=== PATIENT | male | born 1940 | race Caucasian/White ===

== ENCOUNTER 2020-04-16 06:07 | Outpatient (REF) | payer BC, SELFPAY ==
[2020-04-16 06:55] LABS: MANUAL DIFF FLAG NO
[2020-04-16 07:01] LABS: Basophils Absolute Auto 0.1 X10*3/uL (0.0-0.2); Basophils Percent Auto 0.8 % (0-2); Eosinophils Absolute Auto 0.7 X10*3/uL (0.0-0.4); Eosinophils Percent Auto 7.6 % (0-4); Hematocrit 35.9 % (42-52); Hemoglobin 11.3 g/dl (14.0-18.0); Imm Gran Abs Auto 0.02 X10*3/uL (0.00-0.03); Imm Gran Pct Auto 0.2 % (0.0-0.4); Lymphocytes Absolute Auto 3.3 X10*3/uL (1.2-4.9); Lymphocytes Percent Auto 38.4 % (20-40); Mean Corpuscular HGB Conc 31.5 g/dl (31.0-36.0); Mean Corpuscular Hemoglobin 30.3 pg (27.0-33.0); Mean Corpuscular Volume 96.2 fL (80-98); Mean Platelet Volume 10.8 fL (9.4-12.4); Monocytes Absolute Auto 0.7 X10*3/uL (0.1-1.2); Monocytes Percent Auto 8.6 % (2-11); Neutrophils Absolute Auto 3.8 X10*3/uL (2.0-8.3); Neutrophils Percent Auto 44.4 % (45-73); Platelet Count 243 X10*3/uL (160-400); Red Blood Count 3.73 X10*6/uL (4.60-5.80); Red Cell Distribution Width 13.4 % (11.0-16.0); White Blood Count 8.6 X10*3/uL (4.8-10.8)
[2020-04-16 07:22] LABS: Estimated Average Glucose 140 mg/dL; Hemoglobin A1C 141.2704 umol/L; Hemoglobin A1c % 6.5 %
[2020-04-16 07:31] LABS: Alanine Aminotransferase 18 U/L (0-40); Albumin Level 4.1 g/dL (3.5-5.0); Alkaline Phosphatase 79 U/L (39-117); Anion Gap 16 (12-20); Aspartate Amino Transferase 22 U/L (5-37); Bilirubin Direct 0.3 mg/dL (0.0-0.5); Bilirubin Total 0.6 mg/dL (0.0-1.0); Blood Urea Nitrogen 39 mg/dL (9-16); Calcium 8.7 mg/dL (8.4-10.2); Carbon Dioxide 23 mmol/L (22-29); Chloride 106 mmol/L (96-108); Cholesterol 162 mg/dL; Estimated Glomerular Filt Rate 39; Glucose Random 178 mg/dL (60-115); HDL Cholesterol 44 mg/dL; LDL Cholesterol Calculated 78 mg/dl; Potassium 4.5 mmol/l (3.3-5.1); Sodium 140 mmol/L (135-145); Total Protein 6.9 g/dL (6.5-8.0); Triglycerides 202 mg/dL
== END 2020-04-16 06:08 | disposition home or self-care (01) ==
LOC: HO.LAB 06:07
DX: I10 Essential (primary) hypertension (principal); E78.5 Hyperlipidemia, unspecified; E11.9 Type 2 diabetes mellitus without complications
CPT/HCPCS: 36415; 80053; 80061; 80076; 82248; 83036; 85025

== ENCOUNTER → 2020-08-09 07:29 | Outpatient (BNV) | payer BC, SELFPAY | PROVIDERS: PCP Internal Medicine; Visit Provider Internal Medicine Medical Oncology | DX: E11.22 Type 2 diabetes mellitus with diabetic chronic kidney disease (principal); N18.30 Chronic kidney disease, stage 3 unspecified; D63.8 Anemia in other chronic diseases classified elsewhere | CPT/HCPCS: 99213; 99214 ==

== ENCOUNTER 2020-10-25 07:33 | Outpatient (REF) | payer BC, SELFPAY ==
[2020-10-25 08:39] LABS: MANUAL DIFF FLAG NO
[2020-10-25 08:55] LABS: Basophils Percent Auto 0.6 % (0-2); Eosinophils Absolute Auto 0.4 X10*3/uL (0.0-0.4); Eosinophils Percent Auto 6.3 % (0-4); Hematocrit 34.5 % (42-52); Hemoglobin 10.9 g/dl (14.0-18.0); Imm Gran Abs Auto 0.01 X10*3/uL (0.00-0.03); Imm Gran Pct Auto 0.1 % (0.0-0.4); Lymphocytes Absolute Auto 2.6 X10*3/uL (1.2-4.9); Lymphocytes Percent Auto 37.5 % (20-40); Mean Corpuscular HGB Conc 31.6 g/dl (31.0-36.0); Mean Corpuscular Hemoglobin 30.4 pg (27.0-33.0); Mean Corpuscular Volume 96.4 fL (80-98); Mean Platelet Volume 10.8 fL (9.4-12.4); Monocytes Absolute Auto 0.7 X10*3/uL (0.1-1.2); Monocytes Percent Auto 9.6 % (2-11); Neutrophils Absolute Auto 3.1 X10*3/uL (2.0-8.3); Neutrophils Percent Auto 45.9 % (45-73); Platelet Count 239 X10*3/uL (160-400); Red Blood Count 3.58 X10*6/uL (4.60-5.80); Red Cell Distribution Width 13.5 % (11.0-16.0); White Blood Count 6.8 X10*3/uL (4.8-10.8)
[2020-10-25 09:07] LABS: Alanine Aminotransferase 30 U/L (0-40); Albumin Level 4.1 g/dL (3.5-5.0); Alkaline Phosphatase 80 U/L (39-117); Anion Gap 14 (12-20); Aspartate Amino Transferase 29 U/L (5-37); Bilirubin Total 0.6 mg/dL (0.0-1.0); Blood Urea Nitrogen 35 mg/dL (9-16); Calcium 8.9 mg/dL (8.4-10.2); Carbon Dioxide 24 mmol/L (22-29); Chloride 110 mmol/L (96-108); Cholesterol 164 mg/dL; Estimated Glomerular Filt Rate 39; Glucose Fasting 196 mg/dL (60-99); HDL Cholesterol 49 mg/dL; LDL Cholesterol Calculated 78 mg/dl; Potassium 4.5 mmol/L (3.3-5.1); Sodium 143 mmol/L (135-145); Total Protein 6.9 g/dL (6.5-8.0); Triglycerides 186 mg/dL
[2020-10-25 09:27] LABS: Estimated Average Glucose 143 mg/dL; Hemoglobin A1c % 6.6 %
[2020-10-25 10:08] LABS: Creatinine Urine 102.83 mg/dL; Microalbum/Creatinine Ratio Ur 340.3 ug/mg cr
== END 2020-10-25 07:34 | disposition home or self-care (01) ==
LOC: HO.LAB 07:33
PROVIDERS: PCP Internal Medicine; Visit Provider Internal Medicine
DX: Z00.00 Encounter for general adult medical examination without abnormal findings (principal); E11.9 Type 2 diabetes mellitus without complications
CPT/HCPCS: 36415; 80053; 80061; 82043; 83036; 85025

== ENCOUNTER 2021-01-29 07:17 | Outpatient (REF) | payer MEDICARE, SELFPAY ==
[2021-01-29 08:48] LABS: Estimated Average Glucose 126 mg/dL
[2021-01-29 08:57] LABS: Cholesterol 169 mg/dL; Glucose Fasting 204 mg/dL (60-99); HDL Cholesterol 56 mg/dL; LDL Cholesterol Calculated 84 mg/dl; Triglycerides 145 mg/dL
== END 2021-01-29 07:18 | disposition home or self-care (01) ==
LOC: HO.LAB 07:17
PROVIDERS: PCP Internal Medicine; Visit Provider Internal Medicine
DX: E11.65 Type 2 diabetes mellitus with hyperglycemia (principal)
CPT/HCPCS: 36415; 80061; 82947; 83036

== ENCOUNTER 2021-05-04 06:59 | Outpatient (REF) | payer MEDICARE, SELFPAY ==
[2021-05-04 07:46] LABS: Cholesterol 167 mg/dL; Glucose Fasting 155 mg/dL (60-99); HDL Cholesterol 55 mg/dL; LDL Cholesterol Calculated 84 mg/dl; Triglycerides 143 mg/dL
[2021-05-04 08:02] LABS: Estimated Average Glucose 123 mg/dL; Hemoglobin A1c % 5.9 %
== END 2021-05-04 07:00 | disposition home or self-care (01) ==
LOC: HO.LAB 06:59
PROVIDERS: PCP Internal Medicine; Visit Provider Internal Medicine
DX: E11.65 Type 2 diabetes mellitus with hyperglycemia (principal)
CPT/HCPCS: 36415; 80061; 82947; 83036

== ENCOUNTER 2021-07-30 07:33 | Outpatient (REF) | payer MEDICARE, SELFPAY ==
[2021-07-30 08:49] LABS: Estimated Average Glucose 128 mg/dL; Hemoglobin A1c % 6.1 %
[2021-07-30 08:58] LABS: Cholesterol 183 mg/dL; Glucose Fasting 163 mg/dL (60-99); HDL Cholesterol 51 mg/dL; LDL Cholesterol Calculated 105 mg/dl; Triglycerides 137 mg/dL
== END 2021-07-30 07:34 | disposition home or self-care (01) ==
LOC: HO.LAB 07:33
PROVIDERS: PCP Internal Medicine; Visit Provider Internal Medicine
DX: Z00.00 Encounter for general adult medical examination without abnormal findings (principal); E11.65 Type 2 diabetes mellitus with hyperglycemia
CPT/HCPCS: 36415; 80061; 82947; 83036

== ENCOUNTER 2021-08-29 09:54 | Outpatient (REF) | payer MEDICARE, SELFPAY ==
[2021-08-29 10:23] LABS: Estimated Average Glucose 134 mg/dL; Hemoglobin A1c % 6.3 %
[2021-08-29 10:27] LABS: Cholesterol 192 mg/dL; Glucose Fasting 206 mg/dL (60-99); HDL Cholesterol 60 mg/dL; LDL Cholesterol Calculated 102 mg/dl; Triglycerides 151 mg/dL
== END 2021-08-29 09:55 | disposition home or self-care (01) ==
LOC: HO.LAB 09:54
PROVIDERS: PCP Internal Medicine; Visit Provider Internal Medicine
DX: Z00.00 Encounter for general adult medical examination without abnormal findings (principal); E11.65 Type 2 diabetes mellitus with hyperglycemia
CPT/HCPCS: 36415; 80061; 82947; 83036

== ENCOUNTER 2021-11-17 06:06 | Outpatient (REF) | payer MEDICARE, SELFPAY ==
[2021-11-17 06:16] LABS: MANUAL DIFF FLAG NO
[2021-11-17 07:25] LABS: Basophils Absolute Auto 0.1 X10*3/uL (0.0-0.2); Basophils Percent Auto 0.9 % (0-2); Eosinophils Absolute Auto 0.5 X10*3/uL (0.0-0.4); Hematocrit 32.4 % (42.0-52.0); Hemoglobin 10.2 g/dl (14.0-18.0); Imm Gran Abs Auto 0.04 X10*3/uL (0.00-0.03); Imm Gran Pct Auto 0.5 % (0.0-0.4); Lymphocytes Absolute Auto 3.6 X10*3/uL (1.2-4.9); Lymphocytes Percent Auto 44.5 % (20-40); Mean Corpuscular HGB Conc 31.5 g/dl (31.0-36.0); Mean Corpuscular Hemoglobin 29.9 pg (27.0-33.0); Mean Platelet Volume 10.6 fL (9.4-12.4); Monocytes Absolute Auto 0.8 X10*3/uL (0.1-1.2); Monocytes Percent Auto 10.4 % (2-11); Neutrophils Percent Auto 37.7 % (45-73); Platelet Count 266 X10*3/uL (160-400); Red Blood Count 3.41 X10*6/uL (4.60-5.80); Red Cell Distribution Width 13.6 % (11.0-16.0); White Blood Count 8.1 X10*3/uL (4.8-10.8)
[2021-11-17 07:32] LABS: Estimated Average Glucose 131 mg/dL; Hemoglobin A1c % 6.2 %
[2021-11-17 07:49] LABS: Alanine Aminotransferase 15 U/L (0-40); Alkaline Phosphatase 88 U/L (39-117); Anion Gap 15 (12-20); Aspartate Amino Transferase 21 U/L (5-37); Bilirubin Total 0.8 mg/dL (0.0-1.0); Blood Urea Nitrogen 30 mg/dL (9-16); Carbon Dioxide 25 mmol/L (22-29); Chloride 106 mmol/L (96-108); Cholesterol 187 mg/dL; Estimated Glomerular Filt Rate 40; Glucose Fasting 166 mg/dL (60-99); HDL Cholesterol 54 mg/dL; LDL Cholesterol Calculated 99 mg/dl; Potassium 3.9 mmol/L (3.3-5.1); Sodium 142 mmol/L (135-145); Total Protein 7.1 g/dL (6.5-8.0); Triglycerides 173 mg/dL
== END 2021-11-17 06:07 | disposition home or self-care (01) ==
LOC: HO.LAB 06:06
PROVIDERS: PCP Internal Medicine; Visit Provider Internal Medicine
DX: Z00.00 Encounter for general adult medical examination without abnormal findings (principal); Z13.0 Encounter for screening for diseases of the blood and blood-forming organs and certain disorders involving the immune mechanism; E11.9 Type 2 diabetes mellitus without complications
CPT/HCPCS: 36415; 80053; 80061; 83036; 85025

== ENCOUNTER 2022-05-15 06:16 | Outpatient (REF) | payer MEDICARE, SELFPAY ==
[2022-05-15 07:18] LABS: Basophils Percent Auto 0.4 % (0-2); Eosinophils Absolute Auto 0.5 X10*3/uL (0.0-0.4); Eosinophils Percent Auto 4.9 % (0-4); Hematocrit 35.8 % (42.0-52.0); Hemoglobin 11.2 g/dl (14.0-18.0); Imm Gran Abs Auto 0.02 X10*3/uL (0.00-0.03); Imm Gran Pct Auto 0.2 % (0.0-0.4); Lymphocytes Absolute Auto 5.3 X10*3/uL (1.2-4.9); MANUAL DIFF FLAG SCAN; Mean Corpuscular HGB Conc 31.3 g/dl (31.0-36.0); Mean Corpuscular Hemoglobin 29.2 pg (27.0-33.0); Mean Corpuscular Volume 93.5 fL (80.0-98.0); Mean Platelet Volume 10.4 fL (9.4-12.4); Monocytes Absolute Auto 0.9 X10*3/uL (0.1-1.2); Monocytes Percent Auto 8.2 % (2-11); Neutrophils Absolute Auto 3.7 x10*3/uL (2.0-8.3); Neutrophils Percent Auto 35.3 % (45-73); Platelet Count 294 X10*3/uL (160-400); Red Blood Count 3.83 X10*6/uL (4.60-5.80); Red Cell Distribution Width 15.2 % (11.0-16.0); SCAN SMEAR FLAG 1; White Blood Count 10.5 X10*3/uL (4.8-10.8)
[2022-05-15 07:30] LABS: Estimated Average Glucose 151 mg/dL; Hemoglobin A1c % 6.9 %
[2022-05-15 07:52] LABS: Anion Gap 17 (12-20); Blood Urea Nitrogen 66 mg/dL (9-16); Calcium 9.1 mg/dL (8.4-10.2); Carbon Dioxide 18 mmol/L (22-29); Chloride 111 mmol/L (96-108); Estimated Glomerular Filt Rate 32; Glucose Fasting 207 mg/dL (60-99); Potassium 4.4 mmol/L (3.3-5.1); Sodium 142 mmol/L (135-145)
[2022-05-15 08:42] LABS: SLIDE REVIEW VERIFIED
== END 2022-05-15 06:17 | disposition home or self-care (01) ==
LOC: HO.LAB 06:16
PROVIDERS: PCP Internal Medicine; Visit Provider Internal Medicine
DX: Z13.0 Encounter for screening for diseases of the blood and blood-forming organs and certain disorders involving the immune mechanism (principal); R51.9 Headache, unspecified; E11.65 Type 2 diabetes mellitus with hyperglycemia
CPT/HCPCS: 36415; 80048; 82947; 83036; 85025

== ENCOUNTER 2022-08-15 06:18 | Outpatient (REF) | payer MEDICARE, SELFPAY ==
[2022-08-15 07:55] LABS: Estimated Average Glucose 166 mg/dL; Hemoglobin A1c % 7.4 %
[2022-08-15 08:08] LABS: Cholesterol 171 mg/dL; Glucose Fasting 264 mg/dL (60-99); HDL Cholesterol 45 mg/dL; LDL Cholesterol Calculated 88 mg/dl; Triglycerides 194 mg/dL
== END 2022-08-15 06:19 | disposition home or self-care (01) ==
LOC: HO.LAB 06:18
PROVIDERS: PCP Internal Medicine; Visit Provider Internal Medicine
DX: E78.5 Hyperlipidemia, unspecified (principal); E11.65 Type 2 diabetes mellitus with hyperglycemia
CPT/HCPCS: 36415; 80061; 82947; 83036

== ENCOUNTER 2022-11-21 08:19 | Outpatient (REF) | payer MEDICARE, SELFPAY ==
[2022-11-21 09:16] LABS: Estimated Average Glucose 137 mg/dL; Hemoglobin A1c % 6.4 %
[2022-11-21 09:17] LABS: Glucose Fasting 182 mg/dL (60-99)
== END 2022-11-21 08:20 | disposition home or self-care (01) ==
LOC: HO.LAB 08:19
PROVIDERS: PCP Internal Medicine; Visit Provider Internal Medicine
DX: R73.9 Hyperglycemia, unspecified (principal)
CPT/HCPCS: 36415; 82947; 83036

== ENCOUNTER 2023-02-22 09:00 | Outpatient (REF) | payer MEDICARE, SELFPAY ==
[2023-02-22 10:33] LABS: Cholesterol 161 mg/dL (<200); Glucose Fasting 150 mg/dL (60-99); HDL Cholesterol 58 mg/dL (>40); LDL Cholesterol Calculated 78 mg/dL (<100); Triglycerides 128 mg/dL (<150)
[2023-02-22 10:37] LABS: Estimated Average Glucose 120 mg/dL; Hemoglobin A1c % 5.8 % (<6.0)
== END 2023-02-22 09:01 | disposition home or self-care (01) ==
LOC: HO.LAB 09:00
PROVIDERS: PCP Internal Medicine; Visit Provider Internal Medicine
DX: R73.9 Hyperglycemia, unspecified (principal); E78.5 Hyperlipidemia, unspecified
CPT/HCPCS: 36415; 80061; 82947; 83036

== ENCOUNTER 2023-03-01 08:46 | Outpatient (AMB) | payer MEDICARE, SELFPAY ==
[2023-03-01 08:47] VITALS: BP 144/62; PULSE 64; O2SAT 98; BMI 29.2
--- NOTE | 2023-03-01 08:47 | MHC.PC.OV ---
Vital Signs 03/01/23 08:47 Height 5 ft 8 in Weight 192 lb BMI 29.2 BP 144/62 H Blood Pressure Location Lt brachial Position Sitting Pulse 64 Pulse Source Pulse Oximeter Pulse Oximetry (%) 98 Oxygen Delivery Method Room Air Intake Visit Reasons: 3mth f/u Director Digital Sales: Present Accompanied by: Spouse Allergies naproxen [NAPROXEN] Adverse Reaction (Mild, Verified 03/01/23 08:47) HALLUCINATIONS Medication List - Last Reconciled 03/01/23 by Pee Escobedo MD aspirin (Adult Low Dose Aspirin) 81 mg PO DAILY blood sugar diagnostic ([employer] Verio test strips) TEST ONCE DAILY cholecalciferol (vitamin D3) 25 mcg PO DAILY ferrous sulfate 325 mg PO DAILY glipizide 5 mg PO BID hydrochlorothiazide 12.5 mg PO DAILY lancets ([employer]ToAmp[employer] Delica Lancets) TEST ONCE DAILY metoprolol succinate ER 50 mg PO DAILY [id number] mcg (Centrum Silver Ultra Men's) 1 tab PO DAILY pioglitazone (Actos) 15 mg PO DAILY simvastatin 40 mg PO DAILY Tobacco use date assessed: 08/21/22 Fall risk assessment: No Falls in past year Last assessed Fall Risk: 03/01/23 Dental Screening Dental Screen Date: 03/01/23 Did you have a dental visit in the last 12 months?: No Did you have a dental problem in the last 6 months where you did not have access to dental care?: No Was dental information given to patient?: Patient has dentist HPI 3mth f/u HPI Details DM HTN and hyperlipidemia; stable labs good [facility] Medical History Obesity Hypertension 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, controlled Diabetes mellitus Family History Father Hx of diabetes mellitus Leukemia Brother Hx of diabetes mellitus Brother Hx of diabetes mellitus Social History Household Members: Spouse Housing: House Are you a primary critical care technician to a significant other at home: No Do you presently have visiting nurse or other home services: Yes Alcohol intake: never Patient Tobacco Use Status: Former Tobacco user Tobacco use type: Cigarette e-Cigarette/Vaping Use: Never Used Second Hand Smoke Exposure: No service: No Current occupational status: retired Cognitive needs: No Hearing needs: No Vision needs: Yes Questionnaire PHQ-9 Over the last 2 weeks, how often have you been bothered by any of the following problems? 1. Little interest or pleasure in doing things: not at all 2. Feeling down, depressed, or hopeless: not at all 3. Trouble falling or staying asleep, or sleeping too much: not at all 4. Feeling tired or having little energy: not at all 5. Poor appetite or overeating: not at all 6. Feeling bad about yourself - or that you are a failure or have let yourself or your family down: not at all 7. Trouble concentrating on things, such as reading the newspaper or watching television: not at all 8. Moving or speaking so slowly that other people could have noticed. Or the opposite - being so fidgety or restless that you have been moving around a lot more than usual: not at all 9. Thoughts that you would be better off or of hurting yourself in some way: not at all Total score: 0 Depression Screening Interpretation: Negative 58791 - PHQ-9 Billing: Yes Source: Developed by Drs. Wing Ma, Scott Urrutia and colleagues, with an educational criss from [employer]. Thrive Questionnaire Date Thrive assessed: 08/21/22 AUDIT C Alcohol Use Questionnaire (AUDIT-C) 1. How often do you have a drink containing alcohol?: Never Total Score: 0 Score Reviewed/Action Taken: Yes CARTER-7 AMB Questionnaire CARTER-7 Date CARTER - 7 assessed: 08/21/22 Source: Developed by Drs. Wing Ma, Scott Urrutia and colleagues, with an educational criss from [employer]. Review of Systems Const Denies chills, Denies headache(s) and Denies weight loss ENT Denies headache(s) Card Denies chest pain, Denies syncope, Denies irregular heart rhythm and Denies dyspnea Resp Denies chest congestion, Denies cough and Denies dyspnea GI Denies abdominal pain, Denies change in stool character, Denies nausea and Denies vomiting Musc Denies deformity and Denies joint swelling Neuro Denies syncope and Denies headache(s) Physical exam (Primary Care) Vital Signs: Last Vital Signs Pulse 64 03/01/23 08:47 BP 144/62 H 03/01/23 08:47 Pulse Ox 98 03/01/23 08:47 Oxygen Delivery Method Room Air 03/01/23 08:47 BMI result Body Mass Index 29.2 Tobacco/Smoking Status: Tobacco use Status Tobacco use date assessed 08/21/22 03/01/23 08:53 Patient Tobacco Use Status Former Tobacco user 03/01/23 08:53 Tobacco use type Cigarette 03/01/23 08:53 e-Cigarette/Vaping Use Never Used 03/01/23 08:53 PHQ-9: PHQ-9 Score PHQ-9: Total score 0 03/01/23 08:53 Depression Screening Interpretation: Negative Thrive Assessment: Date of Thrive Assessment Date Thrive assessed 08/21/22 03/01/23 08:53 Const General: cooperative, comfortable, no acute distress and alert Neck Neck: Yes no lymphadenopathy Thyroid: Thyroid normal Resp Effort & Inspection: normal respiratory effort Auscultation: clear to auscultation bilaterally Percussion: percussion normal Cardio Jugular venous distension: no JVD Palpation: normal PMI Rate: regular rate Rhythm: regular rhythm Heart sounds: S1 normal heart sound present and S2 normal heart sound present GI Inspection: Yes normal to inspection Palpation (GI): No hepatosplenomegaly present Skin General skin exam: no rashes or lesions noted Extrem General: Yes no clubbing, cyanosis or edema Assessment and Plan Assessment & Plan (1) Hyperlipidemia: Code(s): E78.5 - Hyperlipidemia, unspecified Plan: stable; same rx (2) Hypertension: Code(s): I10 - Essential (primary) hypertension Plan: stable same rx (3) Diabetes mellitus with coincident hypertension: Code(s): E11.9 - Type 2 diabetes mellitus without complications; I10 - Essential (primary) hypertension Plan: due for labs Orders: Orders Lipid Panel Today E78.5 - Hyperlipidemia, unspecified Complete Blood Count Auto Diff Today D64.9 - Anemia, unspecified Hemoglobin A1c Today R73.9 - Hyperglycemia, unspecified Comprehensive [place]. Panel Fast Today N28.9 - Disorder of kidney and ureter, unspecified Coding Level of Care Code Est Pt Level 4 (92907) Diagnoses Hyperlipidemia E78.5 Hypertension I10 Diabetes mellitus with coincident hypertension E11.9; I10
== END 2023-03-01 09:13 | disposition home or self-care (01) ==
PROVIDERS: PCP Internal Medicine; Visit Provider Internal Medicine
DX: E78.5 Hyperlipidemia, unspecified (principal); I10 Essential (primary) hypertension; E11.9 Type 2 diabetes mellitus without complications
CPT/HCPCS: 99214

== ENCOUNTER 2023-06-07 15:35 | Emergency (ER) | payer MEDICARE, SELFPAY ==
--- NOTE | ~2023-06-07 | XR_ITS ---
EXAMINATION: XR CHEST CLINICAL INFORMATION: Covid positive. Evaluate for pneumonia COMPARISON: None available. TECHNIQUE: 2 views of the chest were obtained. FINDINGS: Lungs clear. No pleural effusions. Heart and pulmonary vessels normal. There is mild spondylitic change in the thoracic spine. XR/XR chest 2V IMPRESSION: No active disease.
--- NOTE | 2023-06-07 15:39 | ED.WEAKNESS ---
HPI - Weakness General Chief complaint: Upper Respiratory Symptoms Stated complaint: covid+,nausea,sore throat Time Seen by Provider: 06/07/23 15:37 Source: patient and EMS Mode of arrival: EMS Limitations: no limitations History of Present Illness HPI Narrative: Tested positive for COVID Related Data Home Medications Medication Instructions Recorded Confirmed aspirin 81 mg tablet,delayed 81 mg PO DAILY 08/05/20 03/08/23 release (Adult Low Dose Aspirin) cholecalciferol (vitamin D3) 25 25 mcg PO DAILY 08/05/20 03/08/23 mcg (1,000 unit) capsule dffzzmfl-ux-dowef 300 mcg-K 60 1 tab PO DAILY 08/05/20 03/08/23 mcg-lycop 600 mcg-lutein 300 mcg tablet (Centrum Silver Ultra Men's) Previous Rx's Medication Instructions Recorded lancets 33 gauge ([employer] Delica ##100 10/11/21 Lancets) pioglitazone 15 mg tablet (Actos) 15 mg PO DAILY #90 tabs 05/18/22 ferrous sulfate 325 mg (65 mg 325 mg PO DAILY #90 tabs 11/02/22 iron) tablet glipizide 5 mg tablet 5 mg PO BID #90 tabs 11/02/22 blood sugar diagnostic ([employer] #100 strips 11/14/22 Verio test strips) metoprolol succinate 50 mg 50 mg PO DAILY #90 tabs 01/30/23 tablet,extended release 24 hr simvastatin 40 mg tablet 40 mg PO DAILY #90 tabs 01/30/23 Allergies Allergy/AdvReac Type Severity Reaction Status Date / Time naproxen [NAPROXEN] AdvReac Mild HALLUCINATI Verified 03/08/23 08:01 ONS Review of Systems Neurologic: Denies Sensory deficit (Neuro) [facility] Past Medical History Medical History Obesity Hypertension 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, controlled Diabetes mellitus Family History Family History Father Hx of diabetes mellitus Leukemia Brother Hx of diabetes mellitus Brother Hx of diabetes mellitus Social History Social History Household Members: Spouse Housing: House Are you a primary career and guidance counselor to a significant other at home: No Do you presently have visiting nurse or other home services: Yes Alcohol intake: never Patient Tobacco Use Status: Former Tobacco user Tobacco use type: Cigarette Smoked in Last 30 Days: No e-Cigarette/Vaping Use: Never Used Second Hand Smoke Exposure: No Advance Directives: Yes Advance Directives Information Provided: No Advance Directives on File: No service: No Current occupational status: retired Cognitive needs: No Hearing needs: No Vision needs: Yes Physical Exam Vital Signs: Vital Signs: Last Vital Signs Temp 100.5 F H 06/07/23 19:32 Pulse 89 06/07/23 19:32 Resp 14 06/07/23 19:32 BP 132/59 L 06/07/23 19:32 Pulse Ox 97 06/07/23 19:32 O2 Del Method Room Air 06/07/23 19:32 BMI result Body Mass Index 26.5 Const: Other: elderly male General: healthy appearing Nutritional Appearance: average body habitus Orientation/consciousness: oriented to person and patient oriented x3 Limitations: no limitations HEENT: Head: Yes normal to inspection Ears: external ears normal General nose exam: Normal external nose present Mouth: Normal oral and palatal mucosa present and oropharynx normal Throat: Yes posterior oropharynx normal Eyes: General: appearance normal, both eyes and all related structures Neck: Other: supple Neck: Yes normal visual inspection Chest: Chest palpation & inspection: normal inspection of the chest Resp: Auscultation: clear to auscultation bilaterally Cardio: Jugular venous distension: no JVD Rate: regular rate Rhythm: regular rhythm Heart sounds: S1 normal heart sound present and S2 normal heart sound present GI: Inspection: Yes normal to inspection Palpation (GI): Soft to palpation, nontender and No hepatosplenomegaly present Auscultation: normal bowel sounds : Other: rectal brown stool heme negative General: Yes no CVA tenderness Back/Spine/Pelvis: Back: no CVA tenderness Skin: General skin exam: no rashes or lesions noted Neuro: General: oriented to person and patient oriented x3 Cranial nerves: Yes CN's II-XII intact bilaterally Motor exam (neuro): 5/5 motor strength present throughout Sensory Exam: No Sensory deficit (Neuro) Extrem: General: Yes normal to inspection Psych: Appearance: grossly normal Course Reevaluation(s) Reevaluation #1: patient with renal insufficiency, anemia, COVID + with weakness, ambulated well will dc home Time: 19:50 Medications Administered Generic Name Dose Route Start Last Admin Trade Name Dennise PRN Reason Stop Dose Admin Sodium Chloride 1,000 mls @ 200 mls/hr 06/07/23 15:45 06/07/23 16:38 Ns IVCONT 06/07/23 20:44 200 mls/hr .Q5H JINA Administration Medical Decision Making Differential Diagnosis Differential Diagnoses: The differential diagnosis associated with the presentation includes (Covid, pneumonia, anemia were all considered) Admission/Observation Consideration of admission/observation: Escalation of care including admission/observation considered (upon arrival patient was considered for admission) Lab Data MDM Lab Attestation statement: I reviewed the patient's lab results. (anemia slightly worse but patient heme negative, renal failure around baseline) 06/07/23 16:33 06/07/23 16:33 Labs: Lab Results 06/07/23 Range/Units 16:33 WBC 10.1 (4.8-10.8) X10*3/uL RBC 2.97 L (4.60-5.80) X10*6/uL Hgb 9.2 L (14.0-18.0) g/dl Hct 28.8 L (42.0-52.0) % MCV 97.0 (80.0-98.0) fL MCH 31.0 (27.0-33.0) pg MCHC 31.9 (31.0-36.0) g/dl RDW 14.7 (11.0-16.0) % Plt Count 190 (160-400) X10*3/uL MPV 10.4 (9.4-12.4) fL Immature Gran % (Auto) 0.6 H (0.0-0.4) % Neut % (Auto) 77.5 H (45-73) % Lymph % (Auto) 12.2 L (20-40) % Cole % (Auto) 8.3 (2-11) % Eos % (Auto) 1.1 (0-4) % Baso % (Auto) 0.3 (0-2) % Lymph # (Auto) 1.2 (1.2-4.9) X10*3/uL Cole # (Auto) 0.8 (0.1-1.2) X10*3/uL Eos # (Auto) 0.1 (0.0-0.4) X10*3/uL Baso # (Auto) 0.0 (0.0-0.2) X10*3/uL Abs Immat Gran (auto) 0.06 H (0.00-0.03) X10*3/uL Absolute Neuts (auto) 7.8 (2.0-8.3) x10*3/uL Absolute Nucleated RBC 0.000 (0.0-0.012) X10*3/uL Nucleated RBC % (auto) 0.0 (0.0-0.2) /100WBC Sodium 140 (135-145) mmol/L Potassium 4.7 (3.3-5.1) mmol/L Chloride 110 H (96-108) mmol/L Carbon Dioxide 18 L (22-29) mmol/L Anion Gap 17 (12-20) BUN 69 H (9-16) mg/dL Creatinine 2.02 H (0.5-1.4) mg/dL Estim Creat Clear Calc 28.1 Estimated GFR 32 Random Glucose 237 H (60-115) mg/dL Calcium 9.0 D (8.4-10.2) mg/dL Independent Interpretation I performed an independent interpretation of an: EKG (sinus [address] or twave changes) and Plain X-Ray (CXR: no infiltrate) Independent Historian Clinical information obtained from an independent historian. History obtained from or confirmed by: EMS Prescription Management I considered prescription management with: Antibiotic (no infiltrate on xray) Chronic Conditions Patient?s care impacted by: Diabetes and Hypertension Discharge Plan Discharge Clinical Impression: COVID-19, Anemia, Weakness Patient Disposition: Home, Self-Care Instructions: Anemia (ED), COVID-19 (Coronavirus Disease 2019) (ED) Prescriptions: No Action (DME) lancets [[employer] Delica Lancets] 33 gauge misc See Rx Instructions .ROUTE .COMPLEX Qty: 100 3RF Dose Instruction: TEST ONCE DAILY Rx Instructions: TEST ONCE DAILY glipizide 5 mg tablet 5 mg PO BID Qty: 90 8RF ferrous sulfate 325 mg (65 mg iron) tablet 325 mg PO DAILY Qty: 90 3RF (DME) OneTouch Verio test strips Strip See Rx Instructions .ROUTE .COMPLEX Qty: 100 3RF Dose Instruction: TEST ONCE DAILY Rx Instructions: TEST ONCE DAILY metoprolol succinate 50 mg tablet extended release 24 hr 50 mg PO DAILY Qty: 90 7RF simvastatin 40 mg tablet 40 mg PO DAILY Qty: 90 7RF aspirin [Adult Low Dose Aspirin] 81 mg tablet,delayed release (DR/EC) 81 mg PO DAILY Centrum Silver Ultra Men's 300-600-300 mcg tablet 1 tab PO DAILY cholecalciferol (vitamin D3) 25 mcg (1,000 unit) capsule 25 mcg PO DAILY pioglitazone [Actos] 15 mg tablet 15 mg PO DAILY Qty: 90 8RF Referrals: Pee Escobedo MD [Primary Care Provider] - 5 days
--- NOTE | 2023-06-07 15:43 | ECG_ITS ---
Test Reason : WEAKNESS Blood Pressure : / mmHG Vent. Rate : 079 BPM Atrial Rate : 079 BPM P-R Int : 170 ms QRS Dur : 076 ms QT Int : 372 ms P-R-T Axes : 005 -14 009 degrees QTc Int : 426 ms Normal sinus rhythm Normal ECG When compared with ECG of 27-AUG-2014 14:05, No significant change was found Referred By: Marin Hernandez Electronically Signed By:TRENT THOMAS
[2023-06-07 15:45] VITALS: BP 165/70; PULSE 86; O2SAT 97
[2023-06-07 16:01] VITALS: BP 153/53; PULSE 78; RESP 18; TEMP 37; O2SAT 100; BMI 26.5
[2023-06-07 16:36] LABS: MANUAL DIFF FLAG NO
[2023-06-07] MEDS: 0.9 % Sodium Chloride 1,000 ML 200 ML IVCONT (16:38)
[2023-06-07 16:42] LABS: Basophils Percent Auto 0.3 % (0-2); Eosinophils Absolute Auto 0.1 X10*3/uL (0.0-0.4); Eosinophils Percent Auto 1.1 % (0-4); Hematocrit 28.8 % (42.0-52.0); Hemoglobin 9.2 g/dl (14.0-18.0); Imm Gran Abs Auto 0.06 X10*3/uL (0.00-0.03); Imm Gran Pct Auto 0.6 % (0.0-0.4); Lymphocytes Absolute Auto 1.2 X10*3/uL (1.2-4.9); Lymphocytes Percent Auto 12.2 % (20-40); Mean Corpuscular HGB Conc 31.9 g/dl (31.0-36.0); Mean Platelet Volume 10.4 fL (9.4-12.4); Monocytes Absolute Auto 0.8 X10*3/uL (0.1-1.2); Monocytes Percent Auto 8.3 % (2-11); Neutrophils Absolute Auto 7.8 x10*3/uL (2.0-8.3); Neutrophils Percent Auto 77.5 % (45-73); Platelet Count 190 X10*3/uL (160-400); Red Blood Count 2.97 X10*6/uL (4.60-5.80); Red Cell Distribution Width 14.7 % (11.0-16.0); White Blood Count 10.1 X10*3/uL (4.8-10.8)
[2023-06-07 16:47] VITALS: O2SAT 100
[2023-06-07 16:56] LABS: Anion Gap 17 (12-20); Blood Urea Nitrogen 69 mg/dL (9-16); Carbon Dioxide 18 mmol/L (22-29); Chloride 110 mmol/L (96-108); Creatinine Clr Calc Pharmacy 28.1; Estimated Glomerular Filt Rate 32; Glucose Random 237 mg/dL (60-115); Potassium 4.7 mmol/L (3.3-5.1); Sodium 140 mmol/L (135-145)
--- NOTE | 2023-06-07 18:24 | MHC.EDTECH ---
walked with patient and patient was able to walk stead with a walker and staff walking next to him.
[2023-06-07 19:32] VITALS: BP 132/59; PULSE 89; RESP 14; TEMP 38.1; O2SAT 97
--- NOTE | 2023-06-07 19:34 | PC.NURSE ---
Spoke with daughter who will be picking pt up on discharge
== END 2023-06-07 20:32 | disposition home or self-care (01) ==
PROVIDERS: Emergency Provider Emergency Medicine; PCP Internal Medicine
DX: U07.1 COVID-19 (principal); D64.9 Anemia, unspecified; R53.1 Weakness; Z87.891 Personal history of nicotine dependence; Z79.899 Other long term (current) drug therapy
CPT/HCPCS: 36415; 71046; 80048; 85025; 93005; 99283; 99285

== ENCOUNTER → 2023-06-07 15:43 | Outpatient (BNV) | payer MEDICARE, SELFPAY | PROVIDERS: Emergency Provider Emergency Medicine; PCP Internal Medicine; Visit Provider Internal Medicine | DX: R53.1 Weakness (principal) | CPT/HCPCS: 93010 ==

== ENCOUNTER 2023-06-12 07:35 | Outpatient (REF) | payer MEDICARE, SELFPAY ==
[2023-06-12 07:56] LABS: MANUAL DIFF FLAG NO
[2023-06-12 08:14] LABS: Basophils Absolute Auto 0.1 X10*3/uL (0.0-0.2); Basophils Percent Auto 0.5 % (0-2); Eosinophils Absolute Auto 0.4 X10*3/uL (0.0-0.4); Eosinophils Percent Auto 3.9 % (0-4); Hematocrit 30.6 % (42.0-52.0); Hemoglobin 9.7 g/dl (14.0-18.0); Imm Gran Abs Auto 0.06 X10*3/uL (0.00-0.03); Imm Gran Pct Auto 0.6 % (0.0-0.4); Lymphocytes Absolute Auto 3.2 X10*3/uL (1.2-4.9); Lymphocytes Percent Auto 32.9 % (20-40); Mean Corpuscular HGB Conc 31.7 g/dl (31.0-36.0); Mean Corpuscular Hemoglobin 31.6 pg (27.0-33.0); Mean Corpuscular Volume 99.7 fL (80.0-98.0); Mean Platelet Volume 10.4 fL (9.4-12.4); Monocytes Absolute Auto 0.7 X10*3/uL (0.1-1.2); Monocytes Percent Auto 7.2 % (2-11); Neutrophils Absolute Auto 5.4 x10*3/uL (2.0-8.3); Neutrophils Percent Auto 54.9 % (45-73); Platelet Count 244 X10*3/uL (160-400); Red Blood Count 3.07 X10*6/uL (4.60-5.80); Red Cell Distribution Width 14.7 % (11.0-16.0); White Blood Count 9.8 X10*3/uL (4.8-10.8)
[2023-06-12 08:30] LABS: Estimated Average Glucose 137 mg/dL; Hemoglobin A1c % 6.4 % (<6.0)
[2023-06-12 09:51] LABS: Alanine Aminotransferase 30 U/L (0-40); Albumin Level 3.7 g/dL (3.5-5.0); Alkaline Phosphatase 80 U/L (39-117); Anion Gap 12 (12-20); Aspartate Amino Transferase 34 U/L (5-37); Bilirubin Total 0.4 mg/dL (0.0-1.0); Blood Urea Nitrogen 63 mg/dL (9-16); Calcium 9.2 mg/dL (8.4-10.2); Carbon Dioxide 21 mmol/L (22-29); Chloride 114 mmol/L (96-108); Cholesterol 150 mg/dL (<200); Estimated Glomerular Filt Rate 33; Glucose Fasting 231 mg/dL (60-99); HDL Cholesterol 53 mg/dL (>40); LDL Cholesterol Calculated 76 mg/dL (<100); Potassium 4.2 mmol/L (3.3-5.1); Sodium 143 mmol/L (135-145); Total Protein 7.2 g/dL (6.5-8.0); Triglycerides 108 mg/dL (<150)
== END 2023-06-12 07:36 | disposition home or self-care (01) ==
LOC: HO.LAB 07:35
PROVIDERS: PCP Internal Medicine; Visit Provider Internal Medicine
DX: D64.9 Anemia, unspecified (principal); N28.9 Disorder of kidney and ureter, unspecified; R73.9 Hyperglycemia, unspecified; E78.5 Hyperlipidemia, unspecified
CPT/HCPCS: 36415; 80053; 80061; 83036; 85025

== ENCOUNTER 2023-06-20 09:43 | Outpatient (AMB) | payer MEDICARE, SELFPAY ==
[2023-06-20 09:48] VITALS: BP 160/60; PULSE 76; O2SAT 99; BMI 28.2
--- NOTE | 2023-06-20 09:48 | A.OFFPC_ITS ---
Vital Signs 06/20/23 09:48 Height 5 ft 10 in Weight 196 lb 4 oz BMI 28.2 BP 160/60 H Blood Pressure Location Lt brachial Position Sitting Pulse 76 Pulse Source Pulse Oximeter Pulse Oximetry (%) 99 Oxygen Delivery Method Room Air Intake Visit Reasons: [facility] covid + on 06/07 Policy Advisor Required: No Wheel Polisher: Not Required per policy Accompanied by: Self / Same As Patient Allergies naproxen [NAPROXEN] Adverse Reaction (Mild, Verified 06/20/23 09:49) HALLUCINATIONS Tobacco use date assessed: 06/20/23 Fall risk assessment: No Falls in past year Last assessed Fall Risk: 06/20/23 Dental Screening Dental Screen Date: 06/20/23 Did you have a dental visit in the last 12 months?: Yes Did you have a dental problem in the last 6 months where you did not have access to dental care?: No Was dental information given to patient?: Patient has dentist HPI [facility] covid + on 06/07 HPI Details had covid ; recovered [facility] Medical History Obesity Hypertension 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, controlled Diabetes mellitus Family History Father Hx of diabetes mellitus Leukemia Brother Hx of diabetes mellitus Brother Hx of diabetes mellitus Social History Household Members: Spouse Housing: House Are you a primary career and transition teacher to a significant other at home: No Do you presently have visiting nurse or other home services: Yes Alcohol intake: never Patient Tobacco Use Status: Former Tobacco user Tobacco use type: Cigarette e-Cigarette/Vaping Use: Never Used Second Hand Smoke Exposure: No service: No Current occupational status: retired Cognitive needs: No Hearing needs: No Vision needs: Yes Questionnaire PHQ-9 Over the last 2 weeks, how often have you been bothered by any of the following problems? 1. Little interest or pleasure in doing things: not at all 2. Feeling down, depressed, or hopeless: not at all 3. Trouble falling or staying asleep, or sleeping too much: not at all 4. Feeling tired or having little energy: not at all 5. Poor appetite or overeating: not at all 6. Feeling bad about yourself - or that you are a failure or have let yourself or your family down: not at all 7. Trouble concentrating on things, such as reading the newspaper or watching television: not at all 8. Moving or speaking so slowly that other people could have noticed. Or the opposite - being so fidgety or restless that you have been moving around a lot more than usual: not at all 9. Thoughts that you would be better off or of hurting yourself in some way: not at all Total score: 0 Depression Screening Interpretation: Negative Depression Screening Done: Yes 29731 - PHQ-9 Billing: Yes Source: Developed by Drs. Wing Ma, Margret Bernal, Scott Espinosa and colleagues, with an educational criss from [employer]. Thrive Questionnaire Date Thrive assessed: 06/20/23 I am a: Patient What is your living situation today?: I have a steady place to live Within the past 12 months, did the food you bought not last and you didn't have the money to get more?: Never true Within the past 12 months, did you worry whether your food would run out before you got money to buy more?: Never true Do you have trouble paying for medicines?: No Do you have trouble getting transportation to medical appointments?: No Do you have trouble paying your heating and electricity bill?: No Do you have trouble taking care of your child, family member or friend?: No Do you have trouble with day-to-day activities such as bathing, preparing meals, shopping, managing finances, etc.?: No Are you currently unemployed and looking for a job?: No Are you interested in more education?: No Please select the resources that you would like help with: None AUDIT C Alcohol Use Questionnaire (AUDIT-C) 1. How often do you have a drink containing alcohol?: Never Total Score: 0 Score Reviewed/Action Taken: Yes CARTER-7 AMB Questionnaire CARTER-7 Date CARTER - 7 assessed: 06/20/23 Feeling nervous, anxious, or on edge: 0 = Not at all Not being able to stop or control worryin = Not at all Worrying too much about different things: 0 = Not at all Trouble relaxin = Not at all Being so restless that it is hard to sit still: 0 = Not at all Becoming easily annoyed or irritable: 0 = Not at all Feeling afraid as if something awful might happen: 0 = Not at all Total CARTER-7 score (0-4 normal; 5-9 mild; 10-14 moderate; 15-21 severe): 0 Source: Developed by Drs. Wing Ma, Margret Bernal, Scott Espinosa and colleagues, with an educational criss from [employer]. Review of Systems Const Denies chills, Denies headache(s) and Denies weight loss ENT Denies headache(s) Card Denies chest pain, Denies syncope, Denies irregular heart rhythm and Denies dyspnea Resp Denies chest congestion, Denies cough and Denies dyspnea GI Denies abdominal pain, Denies change in stool character, Denies nausea and Denies vomiting Musc Denies deformity and Denies joint swelling Neuro Denies syncope and Denies headache(s) Physical exam (Primary Care) Vital Signs: Last Vital Signs Pulse 76 06/20/23 09:48 BP 160/60 H 06/20/23 09:48 Pulse Ox 99 06/20/23 09:48 Oxygen Delivery Method Room Air 06/20/23 09:48 BMI result Body Mass Index 28.2 Tobacco/Smoking Status: Tobacco use Status Tobacco use date assessed 06/20/23 06/20/23 09:53 Patient Tobacco Use Status Former Tobacco user 06/20/23 09:53 Tobacco use type Cigarette 06/20/23 09:53 e-Cigarette/Vaping Use Never Used 06/20/23 09:53 PHQ-9: PHQ-9 Score PHQ-9: Total score 0 06/20/23 09:53 Depression Screening Interpretation: Negative Thrive Assessment: Date of Thrive Assessment Date Thrive assessed 06/20/23 06/20/23 09:53 Const General: cooperative, comfortable, no acute distress and alert Neck Neck: Yes no lymphadenopathy Thyroid: Thyroid normal Resp Effort & Inspection: normal respiratory effort Auscultation: clear to auscultation bilaterally Percussion: percussion normal Cardio Jugular venous distension: no JVD Palpation: normal PMI Rate: regular rate Rhythm: regular rhythm Heart sounds: S1 normal heart sound present and S2 normal heart sound present GI Inspection: Yes normal to inspection Palpation (GI): No hepatosplenomegaly present Skin General skin exam: no rashes or lesions noted Extrem General: Yes no clubbing, cyanosis or edema Assessment and Plan Assessment & Plan (1) COVID-19: Code(s): U07.1 - COVID-19 Plan: resolved Orders: Orders Vitamin B12 Today D64.9 - Anemia, unspecified Coding Level of Care Code Est Pt Level 3 (67876) Diagnoses COVID-19 U07.1
== END 2023-06-20 10:10 | disposition home or self-care (01) ==
PROVIDERS: PCP Internal Medicine; Visit Provider Internal Medicine
DX: U07.1 COVID-19 (principal)
CPT/HCPCS: 99213

== ENCOUNTER 2023-07-05 10:47 | Outpatient (AMB) | payer MEDICARE, SELFPAY ==
[2023-07-05 10:50] VITALS: BP 138/62; PULSE 79; O2SAT 98; BMI 27.9
--- NOTE | 2023-07-05 10:50 | HO.NEPHOV ---
HPI HPI Comments History of Present Illness Details [place] man with long standing DM and HTN with CKD 3 B to 4 HEre for routine follow up c/o Increased frequency at night Blood sugar seems elevated Appetite is fair NO weight loss Sees Dr. Lim for Anemia and MCGP - Monoclonal gammopathy of uncertain significance, IgG kappa and IgG lambda. PFS Medical History Obesity Hypertension 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, controlled Diabetes mellitus Family History Father Hx of diabetes mellitus Leukemia Brother Hx of diabetes mellitus Brother Hx of diabetes mellitus Social History Household Members: Spouse Housing: House Are you a primary personal care assistant to a significant other at home: No Do you presently have visiting nurse or other home services: Yes Alcohol intake: never Patient Tobacco Use Status: Former Tobacco user Tobacco use type: Cigarette e-Cigarette/Vaping Use: Never Used Second Hand Smoke Exposure: No service: No Current occupational status: retired Cognitive needs: No Hearing needs: No Vision needs: Yes Vital Signs 07/05/23 10:50 Height 5 ft 10 in Weight 194 lb 8 oz BMI 27.9 BP 138/62 Blood Pressure Location Rt brachial Position Sitting Pulse 79 Pulse Source Pulse Oximeter Pulse Oximetry (%) 98 Oxygen Delivery Method Room Air Physical Exam Vital Signs: Last Vital Signs Pulse 79 07/05/23 10:50 BP 138/62 07/05/23 10:50 Pulse Ox 98 07/05/23 10:50 Oxygen Delivery Method Room Air 07/05/23 10:50 BMI result Body Mass Index 27.9 Const General: comfortable Nutritional Appearance: well nourished Orientation/consciousness: patient oriented x3 HEENT Head: No normal to inspection Mouth: moist mucous membranes Neck Neck: Yes supple and Yes no JVD Resp Auscultation: clear to auscultation bilaterally, no rales and rub present Cardio Jugular venous distension: no JVD Palpation: no palpable S3 and no palpable S4 Heart sounds: no rubs GI Palpation (GI): Soft to palpation and nontender Percussion: No Fluid wave present General: Yes no CVA tenderness Back/Spine/Pelvis Back: no CVA tenderness Skin General skin exam: no rashes or lesions noted Neuro General: patient oriented x3 Extrem General: Yes no pedal edema and No clubbing Assessment & Plan Assessment & Plan (1) Anemia of chronic disease: Code(s): D63.8 - Anemia in other chronic diseases classified elsewhere (2) CKD (chronic kidney disease) stage 3, GFR 30-59 ml/min: Code(s): N18.30 - Chronic kidney disease, stage 3 unspecified Plan CKD 3 B in a sitting of DM And HTN Renal function is stable Avoid nephrotoxins Maintain BP 130/80 Goal A1C < 7% Trial of Finasteride for increased frequency Follow up with Dr. Lim for Anemia/MCGP Orders: Orders Electrolytes 4 Months D63.8 - Anemia in other chronic diseases classified elsewhere, N18.30 - Chronic kidney disease, stage 3 unspecified Creatinine 4 Months D63.8 - Anemia in other chronic diseases classified elsewhere, N18.30 - Chronic kidney disease, stage 3 unspecified Complete Blood Count no Diff 4 Months D63.8 - Anemia in other chronic diseases classified elsewhere, N18.30 - Chronic kidney disease, stage 3 unspecified Parathyroid Hormone Intact 4 Months D63.8 - Anemia in other chronic diseases classified elsewhere, N18.30 - Chronic kidney disease, stage 3 unspecified Blood Urea Nitrogen 4 Months D63.8 - Anemia in other chronic diseases classified elsewhere, N18.30 - Chronic kidney disease, stage 3 unspecified Calcium 4 Months D63.8 - Anemia in other chronic diseases classified elsewhere, N18.30 - Chronic kidney disease, stage 3 unspecified Medications: New finasteride 1 mg PO DAILY 30 tabs 1RF Coding Level of Care Code Est Pt Level 4 (39648) Diagnoses Anemia of chronic disease D63.8 CKD (chronic kidney disease) stage 3, GFR 30-59 ml/min N18.30 Results Reviewed Nephrology Results: Hgb 9.7 g/dl (14.0-18.0) L 06/12/23 WBC 9.8 X10*3/uL (4.8-10.8) 06/12/23 Plt Count 244 X10*3/uL (160-400) 06/12/23 Sodium 143 mmol/L (135-145) 06/12/23 Potassium 4.2 mmol/L (3.3-5.1) 06/12/23 Chloride 114 mmol/L (96-108) H 06/12/23 Carbon Dioxide 21 mmol/L (22-29) L 06/12/23 BUN 63 mg/dL (9-16) H 06/12/23 Creatinine 1.95 mg/dL (0.5-1.4) H 06/12/23 Calcium 9.2 mg/dL (8.4-10.2) 06/12/23
== END 2023-07-05 11:25 | disposition home or self-care (01) ==
PROVIDERS: PCP Internal Medicine; Visit Provider Internal Medicine Hypertension Specialist
DX: N18.30 Chronic kidney disease, stage 3 unspecified (principal); D63.8 Anemia in other chronic diseases classified elsewhere
CPT/HCPCS: 99214

== ENCOUNTER → 2023-07-05 10:47 | Outpatient (BNVA) | payer MEDICARE, SELFPAY | PROVIDERS: PCP Internal Medicine; Visit Provider Internal Medicine Hypertension Specialist | DX: N18.30 Chronic kidney disease, stage 3 unspecified (principal); D63.8 Anemia in other chronic diseases classified elsewhere | CPT/HCPCS: 99212 ==

== ENCOUNTER 2023-08-20 12:56 | Outpatient (AMB) | payer MEDICARE, SELFPAY ==
[2023-08-20 12:58] VITALS: BP 126/62; PULSE 65; O2SAT 100; BMI 27.1
--- NOTE | 2023-08-20 12:58 | MHC.PC.OV ---
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 Required: No Education Department Registrar: Not Required per policy Accompanied by: Self / Same As Patient Allergies naproxen [NAPROXEN] Adverse Reaction (Mild, Verified 08/20/23 12:58) HALLUCINATIONS Medication List - Last Reconciled 08/21/23 by Pee Escobedo MD aspirin (Adult Low Dose Aspirin) 81 mg PO DAILY blood sugar diagnostic ([employer] Verio test strips) TEST ONCE DAILY cholecalciferol (vitamin D3) 25 mcg PO DAILY ferrous sulfate 325 mg PO DAILY finasteride 1 mg PO DAILY glipizide 5 mg PO BID lancets ([employer] (SDI)Touch Delica Lancets) TEST ONCE DAILY metoprolol succinate ER 50 mg PO DAILY [id number]-[id number] 286-53-378-300 mcg (Centrum Silver Ultra Men's) 1 tab PO DAILY pioglitazone (Actos) 15 mg PO DAILY simvastatin 40 mg PO DAILY Tobacco use date assessed: 06/20/23 Fall risk assessment: No Falls in past year Last assessed Fall Risk: 08/20/23 Dental Screening Dental Screen Date: 08/20/23 Did you have a dental visit in the last 12 months?: Yes Did you have a dental problem in the last 6 months where you did not have access to dental care?: No Was dental information given to patient?: Patient has dentist HPI 08/31/23 cataracts on L eye HPI Details having bilat cataracts repaired; has DM HTN and hyperlip controlled [facility] Medical History Obesity Hypertension 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, controlled Diabetes mellitus Family History Father Hx of diabetes mellitus Leukemia Brother Hx of diabetes mellitus Brother Hx of diabetes mellitus Social History Household Members: Spouse Housing: House Are you a primary day care worker to a significant other at home: No Do you presently have visiting nurse or other home services: Yes Alcohol intake: never Patient Tobacco Use Status: Former Tobacco user Tobacco use type: Cigarette e-Cigarette/Vaping Use: Never Used Second Hand Smoke Exposure: No service: No Current occupational status: retired Cognitive needs: No Hearing needs: No Vision needs: Yes (glasses ) Questionnaire Thrive Questionnaire Date Thrive assessed: 06/20/23 CARTER-7 AMB Questionnaire CARTER-7 Date CARTER - 7 assessed: 06/20/23 Source: Developed by Drs. Wing Ma, Margret Bernal, Scott Espinosa and colleagues, with an educational criss from [employer]. Review of Systems Const Denies chills, Denies fatigue, Denies headache(s) and Denies weight loss Eyes Denies change in vision, Denies diplopia and Denies eye pain ENT Denies vertigo, Denies dizziness, Denies headache(s) and Denies nasal discharge Card Denies chest pain, Denies rapid heart rate and Denies dyspnea on exertion Resp Denies chest congestion, Denies cough, Denies pain with cough and Denies dyspnea on exertion GI Denies abdominal pain, Denies hematochezia and Denies change in bowel habits Musc Denies myalgias, Denies arthralgias and Denies joint swelling Skin/Breast Denies lesions and Denies unusual bruising Neuro Denies vertigo, Denies dizziness, Denies headache(s) and Denies focal weakness Endo Denies fatigue Physical exam (Primary Care) Vital Signs: Last Vital Signs Pulse 65 08/20/23 12:58 BP 126/62 08/20/23 12:58 Pulse Ox 100 08/20/23 12:58 Oxygen Delivery Method Room Air 08/20/23 12:58 BMI result Body Mass Index 27.1 Tobacco/Smoking Status: Tobacco use Status Tobacco use date assessed 06/20/23 08/20/23 13:00 Patient Tobacco Use Status Former Tobacco user 08/20/23 13:00 Tobacco use type Cigarette 08/20/23 13:00 e-Cigarette/Vaping Use Never Used 08/20/23 13:00 Thrive Assessment: Date of Thrive Assessment Date Thrive assessed 06/20/23 08/20/23 13:00 Const General: cooperative, healthy appearing and no acute distress Orientation/consciousness: oriented to person, oriented to place and oriented to time HENMT Head: Yes normal to inspection, Yes normocephalic and Yes atraumatic Mouth: Normal oral and palatal mucosa present and tongue normal Throat: Yes posterior oropharynx normal and Yes uvula midline Eyes General: appearance normal, both eyes and all related structures Neck Neck: Yes normal visual inspection, Yes full ROM and Yes no lymphadenopathy Thyroid: Thyroid normal Carotids: normal carotid upstroke Chest Chest palpation & inspection: normal inspection of the chest Resp Effort & Inspection: normal respiratory effort and able to speak in complete sentences Auscultation: clear to auscultation bilaterally Cardio Jugular venous distension: no JVD Palpation: normal PMI Rate: regular rate Rhythm: regular rhythm Heart sounds: S1 normal heart sound present and S2 normal heart sound present GI Inspection: Yes normal to inspection Palpation (GI): Soft to palpation and No hepatosplenomegaly present Auscultation: normal bowel sounds General: Yes no CVA tenderness Back/Spine/Pelvis Back: no CVA tenderness Skin General skin exam: no rashes or lesions noted Neuro General: oriented to person, oriented to place and oriented to time Extrem General: Yes normal to inspection and Yes full ROM Assessment and Plan Assessment & Plan (1) Pre-op evaluation: Code(s): Z01.818 - Encounter for other preprocedural examination Plan: low risk for cardiovascular complications; cleared for surgery (2) Hyperlipidemia: Code(s): E78.5 - Hyperlipidemia, unspecified Plan: stable; same rx (3) Hypertension: Code(s): I10 - Essential (primary) hypertension Plan: stable; same rx (4) Diabetes mellitus with coincident hypertension: Code(s): E11.9 - Type 2 diabetes mellitus without complications; I10 - Essential (primary) hypertension Plan: stable; same rx Coding Level of Care Code Est Pt Level 4 (29381) Diagnoses Pre-op evaluation Z01.818 Hyperlipidemia E78.5 Hypertension I10 Diabetes mellitus with coincident hypertension E11.9; I10
== END 2023-08-20 13:22 | disposition home or self-care (01) ==
PROVIDERS: PCP Internal Medicine; Visit Provider Internal Medicine
DX: Z01.818 Encounter for other preprocedural examination (principal); E78.5 Hyperlipidemia, unspecified; I10 Essential (primary) hypertension; E11.9 Type 2 diabetes mellitus without complications
CPT/HCPCS: 99214

== ENCOUNTER 2024-10-22 10:40 | Outpatient (REF) | payer MEDICARE, SELFPAY ==
--- OUTSIDE RECORDS SUMMARY | 2024-10-22 12:11 | XMS_ITS | Clinical Summary ---
Author Organization [address] [place] [address] Address [address] [place] [address] Phone Care Team Providers Care Pipe Bending Machine Operator Name Role Phone Andre Forman MD Primary Care Provider [phone] Allergies Active Allergy Reactions Criticality Noted Date [...] Care Team Description 10/16/2024 Telephone Internal Medicine [facility] 175 [facility] [address] [place] [address] Andre Forman MD Results 10/06/2024 Telephone Internal Medicine [address] [place] [address] Andre Forman MD Joseph: Fax reggie 10/03/2024 11:00 AM EDT Office Visit Internal Medicine [address] [place] [address] Andre Forman MD Primary hypertension (Primary Dx); Hypercholesterolemia; Stage 3 chronic kidney disease, unspecified whether stage 3a or 3b CKD ([facility] V24, [facility] V28); Diabetes mellitus type 1.5, managed as type 2 ([facility] V24, [facility] V28) from Last 3 Months Immunizations Name Administration Dates Next Due Moderna SARS-CoV-2 COVID-19, mRNA, LNP-S, preservative free 06/10/2021 Medical History Medical History Date Comments MGUS (monoclonal gammopathy of unknown significance) DX:MGUS (monoclonal gammopat hy of unknown significance) Anemia DX:Anemia CKD (chronic kidney disease) DX: CKD (chronic kidney disease) Diabetes mellitus type 2, co ntrolled, with complications ([facility] V24, [facility] V28) DX:Diabetes mellitus type 2, controlled, with complications ([facility]) Hyperlipidemia DX:Hyperlipidemi a Social History Tobacco [...] Description 12/18/2024 9:30 AM EDT Office Visit [facility] Hematology Oncology [address] [place] [phone] Marsha Davidson PA [address] [place] [address] 04/06/2025 8:45 AM EDT Office Visit Internal Medicine - [place] 175 [facility] [address] [place] [phone] Andre Forman MD 175 [facility] [address] [place] [address] Health Maintenance Due Date Last Done Comments [...] unspecified whether stage 3a or 3b CKD ([facility]/HCC V24, CMS/HCC V28) Diabetes mellitus type 1.5, managed as type 2 ([facility]/HCC V24, CMS/HCC V28) HEMOGLOBIN A1C Routine 10/15/2024 [...] unspecified whether stage 3a or 3b CKD ([facility] V24, [facility] V28) Diabetes mellitus type 1.5, managed as type 2 ([facility] V24, [facility] V28) LIPID PANEL WITH REFLEX TO DIRECT LDL Routine 10/15/2024 8:43 AM EDT Primary hypertension Hypercholesterolemi a Stage 3 chronic kidney disease, unspecified whether stage 3a or 3b CKD ([facility] V24, [facility] V28) Diabetes mellitus type 1.5, managed as type 2 ([facility] V24, [facility] V28) THYROID STIMULATING HORMONE Routine 10/15/2024 8:43 AM EDT Primary hypertension Hypercholesterolemi a Stage 3 chronic kidney disease, unspecified whether stage 3a or 3b CKD ([facility] V24, [facility] V28) Diabetes mellitus type 1.5, managed as type 2 ([facility] V24, [facility] V28) EXTERNAL DIABETIC RETINA EYE EXAM 08/08/2024 from Last 3 Months Results * Lipid panel with reflex to direct LDL (10/15/2024 8:43 AM EDT) Cholesterol 176 0 - 200 mg/dL LAB CHEMISTRY METHOD 10/15/2024 10:48 AM [facility] Triglycerides 130 0 - 150 mg/dL LAB CHEMISTRY METHOD 10/15/2024 10:48 AM T [facility] HDL 63 >=40 mg/dL LAB CHEMISTRY METHOD 10/15/2024 10:48 AM [facility] LDL Calculated 87 0 - 100 mg/dL LAB CHEMISTRY METHOD 10/15/2024 10:48 AM [facility] VLDL Cholesterol Shola 26 mg/dL LAB CHEMISTRY METHOD 10/15/2024 10:48 AM T [facility] Non HDL Chol. (LDL+VLDL) 113 <145 mg/dL LAB CHEMISTRY METHOD 10/15/2024 10:48 AM [facility] Chol/HDL Ratio 2.8 0.0 - 4.4 LAB CHEMISTRY METHOD 10/15/2024 10:48 AM [facility] Blood Venous blood specimen / Unknown Venipuncture / Unknown 10/15/2024 8:43 AM EDT 10/15/2024 8:43 AM EDT us Andre Forman MD LAB BLOOD ORDERABLES Final Resul t [facility] [address] [place] [address], [place] [phone] * (ABNORMAL) CBC auto differential (10/15/2024 8:43 AM EDT) WBC 6.9 4.8 - 10.8 K/mcL LAB HEMETOLOGY METHOD 10/15/2024 10:02 AM [facility] RBC 2.90(L) 4.50 - 5.50 M/mcL LAB HEMETOLOGY METHOD 10/15/2024 10:02 AM [facility] Hemoglobin 9.3(L) 13.5 - 17.5 g/dL LAB HEMETOLOGY METHOD 10/15/2024 10:02 AM [facility] Hematocrit 30.0(L) 42.0 - 54.0 % LAB HEMETOLOGY METHOD 10/15/2024 10:02 AM [facility] MCV 103.4(H) 79.0 - 98.0 FL LAB HEMETOLOGY METHOD 10/15/2024 10:02 AM [facility] MCH 32.1(H) 27.0 - 32.0 pcg LAB HEMETOLOGY METHOD 10/15/2024 10:02 AM [facility] MCHC 31.0(L) 32.0 - 37.0 g/dL LAB HEMETOLOGY METHOD 10/15/2024 10:02 AM [facility] RDW 15.3(H) 11.0 - 15.0 % LAB HEMETOLOGY METHOD 10/15/2024 10:02 AM [facility] Platelets 164 130 - 400 K/mcL LAB HEMETOLOGY METHOD 10/15/2024 10:02 AM [facility] MPV 10.7 7.0 - 11.0 FL LAB HEMETOLOGY METHOD 10/15/2024 10:02 AM [facility] NRBC 0.0 <1.0 % LAB HEMETOLOGY METHOD 10/15/2024 10:02 AM [facility] NRBC Absolute 0.00 <0.10 K/mcL LAB HEMETOLOGY METHOD 10/15/2024 10:02 AM [facility] Neutrophils Relative 34.7 % LAB HEMETOLOGY METHOD 10/15/2024 10:02 AM [facility] Lymphocytes Relative 54.2 % LAB HEMETOLOGY METHOD 10/15/2024 10:02 AM [facility] Monocytes Relative 7.2 % LAB HEMETOLOGY METHOD 10/15/2024 10:02 AM [facility] Eosinophils Relative 3.2 % LAB HEMETOLOGY METHOD 10/15/2024 10:02 AM [facility] Basophils Relative 0.4 % LAB HEMETOLOGY METHOD 10/15/2024 10:02 AM [facility] Immature Granulocytes Relative 0.3 % LAB HEMETOLOGY METHOD 10/15/2024 10:02 AM [facility] Neutrophils Absolute 2.39 1.50 - 7.00 K/mcL LAB HEMETOLOGY METHOD 10/15/2024 10:02 AM [facility] Lymphocytes Absolute 3.74 1.00 - 5.00 K/mcL LAB HEMETOLOGY METHOD 10/15/2024 10:02 AM EDT [facility] Monocytes Absolute 0.50 0.20 - 1.00 K/[facility] LAB HEMETOLOGY METHOD 10/15/2024 10:02 AM EDT [facility] Eosinophils Absolute 0.22 0.00 - 0.50 K/[facility] LAB HEMETOLOGY METHOD 10/15/2024 10:02 AM EDT [facility] Basophils Absolute 0.03 0.00 - 0.20 K/[facility] LAB HEMETOLOGY METHOD 10/15/2024 10:02 AM EDT [facility] Immature Granulocytes Absolute 0.02 0.00 - 0.03 K/[facility] LAB HEMETOLOGY METHOD 10/15/2024 10:02 AM EDT [facility] Blood Venous blood specimen / Unknown Venipuncture / Unknown 10/15/2024 8:43 AM EDT 10/15/2024 8:43 AM EDT us Andre Forman MD LAB BLOOD ORDERABLES Final Resul t Performing Organization Address [facility]/ZIP Co de Phone Number [facility] [address] [place] [address], [place] [phone] * Thyroid stimulating hormone (10/15/2024 8:43 AM EDT) TSH 3.18 0.40 - 4.00 mcIU/mL LAB CHEMISTRY METHOD 10/15/2024 1:08 PM EDT [facility] Blood Venous blood specimen / Unknown Venipuncture / Unknown 10/15/2024 8:43 AM EDT 10/15/2024 8:43 AM EDT us Andre Forman MD LAB BLOOD ORDERABLES Final Resul t [facility] [address] [place] [address], [place] [phone] * (ABNORMAL) Hemoglobin A1c (10/15/2024 8:43 AM EDT) Pathologist [facility] Hemoglobin A1C 6.5(H) <6.5 % LAB CHEMISTRY METHOD 10/15/2024 11:23 AM EDT [facility] Mean Bld Glu Estim. 140 mg/dL LAB CHEMISTRY METHOD 10/15/2024 11:23 AM EDT [facility] Blood Venous blood specimen / Unknown Venipuncture / Unknown 10/15/2024 8:43 AM EDT 10/15/2024 8:43 AM EDT Andre Forman MD LAB BLOOD ORDERABLES Final Resul t [facility] [address] [place] [address], [place] [phone] * (ABNORMAL) Comprehensive metabolic panel (10/15/2024 8:43 AM EDT) [facility] Sodium 143 133 - 145 mmol/L LAB CHEMISTRY METHOD 10/15/2024 10:48 AM [facility] Potassium 4.1 3.5 - 5.5 mmol/L LAB CHEMISTRY METHOD 10/15/2024 10:48 AM [facility] Chloride 113(H) 96 - 110 mmol/L LAB CHEMISTRY METHOD 10/15/2024 10:48 AM [facility] CO2 19(L) 21 - 32 mmol/L LAB CHEMISTRY METHOD 10/15/2024 10:48 AM [facility] Anion Gap 11 3 - 11 LAB CHEMISTRY METHOD 10/15/2024 10:48 AM [facility] Glucose 173(H) 70 - 100 mg/dL LAB CHEMISTRY METHOD 10/15/2024 10:48 AM [facility] BUN 59(H) 5 - 25 mg/dL LAB CHEMISTRY METHOD 10/15/2024 10:48 AM [facility] Creatinine 1.74(H) 0.70 - 1.30 mg/dL LAB CHEMISTRY METHOD 10/15/2024 10:48 AM [facility] eGFR 38(L) >=60 mL/min/1. 73m2 LAB CHEMISTRY METHOD 10/15/2024 10:48 AM [facility] Comment:Calculation based on the Chronic Kidney Disease Epidemiology Collaboration (CKD-EPI) equation refit without adjustment for race. BUN/Creatinine Ratio 33.9 LAB CHEMISTRY METHOD 10/15/2024 10:48 AM [facility] Calcium 8.7 8.5 - 10.5 mg/dL LAB CHEMISTRY METHOD 10/15/2024 10:48 AM [facility] AST (SGOT) 24 10 - 42 unit/L LAB CHEMISTRY METHOD 10/15/2024 10:48 AM [facility] ALT (SGPT) 41 10 - 60 unit/L LAB CHEMISTRY METHOD 10/15/2024 10:48 AM [facility] Alkaline Phosphatase 102 42 - 121 unit/L LAB CHEMISTRY METHOD 10/15/2024 10:48 AM [facility] Total Protein 7.0 6.0 - 8.0 g/dL LAB CHEMISTRY METHOD 10/15/2024 10:48 AM [facility] Albumin 3.5 3.2 - 5.0 g/dL LAB CHEMISTRY METHOD 10/15/2024 10:48 AM [facility] Total Bilirubin 0.4 0.0 - 1.4 mg/dL LAB CHEMISTRY METHOD 10/15/2024 10:48 AM [facility] Blood Venous blood specimen / Unknown Venipuncture / Unknown 10/15/2024 8:43 AM EDT 10/15/2024 8:43 AM EDT Andre Forman MD LAB BLOOD ORDERABLES Final Resul t [facility] [address] [place] [address], * External Diabetic Retina Eye Exam Report (08/08/2024) Anatomical Region Laterality Modality Ultrasound us Provider [facility] US PROCEDURES Final Result from Last 3 Months Insurance [employer] - [place] MEDICARE ADVANTAGE Care Teams Pipe Bending Machine Operator Relationship Specialty Start Date End Date Andre Forman MD [address] [address] PCP - General 10/10/23
--- OUTSIDE RECORDS SUMMARY | 2024-10-22 12:12 | XMS_ITS | Encounter Summary ---
Author Organization [facility] Address [address] [place] [address] Care Team Providers Care Licensed Embalmer Name Role Phone Andre Forman MD Primary Care Provider [phone] Reason for Visit * Reason Onset Date Comments Dickson: Fax reggie 10/06/2024 Encounter Details Date Type Department Care Team (Late st Contact Info) Description 10/06/2024 Telephone Internal Medicine - [place] 175 [facility] [address] [place] [phone] Andre Forman MD 175 [facility] [place] [address] [place] [address] Dickson: Fax reggie Social History Tobacco Use [...] Description 12/18/2024 9:30 AM EDT Office Visit [facility] Hematology Oncology [address] [place] [phone] Marsha Davidson PA [address] [place] [address] 04/06/2025 8:45 AM EDT Office Visit Internal Medicine - [place] [address] [phone] Andre Forman MD [address] [address] documented as of this encounter Visit Diagnoses Not on filedocumented in this encounter Care Teams Licensed Embalmer Relationship Specialty Start Date End Date Andre Forman MD [address] [address] PCP - General 10/10/23 documented as of this encounter
--- OUTSIDE RECORDS SUMMARY | 2024-10-22 12:12 | XMS_ITS | Clinical Summary ---
Author Organization [facility] Address [address] [place] [address] Phone Care Team Providers Care Excellence Coach Name Role Phone Pee Escobedo MD Primary Care Provider [phone] Allergies Active Allergy Reactions Criticality Noted Date [...] patient's age to complete this topic [place] [address] [facility] Care Teams Excellence Coach Relationship Specialty Start Date End Date Pee Escobedo MD [address] [place] [address] PCP - General Internal Medicine 08/25/20
--- OUTSIDE RECORDS SUMMARY | 2024-10-22 12:12 | XMS_ITS | Clinical Summary ---
Author Organization [facility] Address [address] [place] [address] Care Team Providers Care Communications Systems Engineer Name Role Phone Andre Forman MD [...] age to complete this topic Care Teams Communications Systems Engineer Relationship Specialty Start Date End Date Andre Forman MD PCP - General Internal Medicine 10/10/23
--- OUTSIDE RECORDS SUMMARY | 2024-10-22 12:12 | XMS_ITS | Encounter Summary ---
Author Organization [facility] Address [address] [place] [address] Care Team Providers Care On Car Supervisor Name Role Phone Andre Forman MD Primary Care Provider [phone] Reason for Visit * Reason Onset Date Comments Results 10/16/2024 Encounter Details Date Type Department Care Team (Late st Contact Info) Description 10/16/2024 Telephone Internal Medicine - [place] [address] [phone] Andre Forman MD [address] [facility] [address] [place] [address] Results Social History Tobacco Use Types Packs/Day [...] a call back about the results. Cb# [phone] * Tigre Rosales [place] - 10/17/2024 10:30 AM EDT 10/17 [facility] to return call regarding lab results. * Jess Rogers - 10/16/2024 2:26 PM EDT Contact patient re: lab results documented in this encounter Plan of Treatment Upcoming Encounters Date Type Department Care Team (Late st Contact Info) Description 12/18/2024 9:30 AM EDT Office Visit [facility] Hematology Oncology [address] [place] [address] Marsha Davidson PA [address] [place] [address] 04/06/2025 8:45 AM EDT Office Visit Internal Medicine - [place] [address] [phone] Andre Forman MD [address] [address] documented as of this encounter Visit Diagnoses Not on filedocumented in this encounter Care Teams On Car Supervisor Relationship Specialty Start Date End Date Andre Forman MD [address] [address] PCP - General 10/10/23 documented as of this encounter
[2024-10-22 18:22] LABS: Appearance Urine Clear; Color Urine Yellow; Glucose Urine UA 100 mg/dL (Negative); Leukocyte Esterase Urine Negative (Negative); Nitrite Urine Negative (Negative); PH 5.5 (5.0-9.0); Specific Gravity - Urine 1.015 (1.005-1.025); UMIC TRIGGER UA YES; Urine Blood Negative (Negative); Urine Ketones Negative (Negative); Urine Protein 100 (2+) mg/dL (Neg-Trace)
[2024-10-22 18:28] LABS: Hematocrit 27.5 % (42.0-52.0); Hemoglobin 8.7 g/dl (14.0-18.0); Mean Corpuscular HGB Conc 31.6 g/dl (31.0-36.0); Mean Corpuscular Hemoglobin 32.6 pg (27.0-33.0); Mean Platelet Volume 11.2 fL (9.4-12.4); Platelet Count 157 X10*3/uL (160-400); Red Blood Count 2.67 X10*6/uL (4.60-5.80); Red Cell Distribution Width 15.7 % (11.0-16.0)
[2024-10-22 18:28] LABS: Bacteria Urine None Seen (None Seen); Hyaline Casts Urine 0-2 /LPF (0-2); RBC Urine 0-2 /HPF (0-2); Squamous Epithelial Cell Urine 0-2 /HPF (0-2); WBC Urine 0-5 /HPF (0-5)
[2024-10-22 18:32] LABS: Anion Gap 12 (12-20); Blood Urea Nitrogen 57 mg/dL (9-16); Calcium 8.5 mg/dL (8.4-10.2); Carbon Dioxide 21 mmol/L (22-29); Chloride 116 mmol/L (96-108); Estimated Glomerular Filt Rate 40; Glucose Random 141 mg/dL (60-115); Potassium 3.9 mmol/L (3.3-5.1); Sodium 145 mmol/L (135-145)
[2024-10-22 18:56] LABS: Creatinine Urine 62.08 mg/dL; Total Protein Urine Random 86 mg/dL (<12)
[2024-10-22 19:05] LABS: Parathyroid Hormone Intact 146.8 pg/mL (8.7-77.1)
== END 2024-10-22 10:41 | disposition home or self-care (01) ==
LOC: HO.HKASLDS 10:40
PROVIDERS: PCP Internal Medicine; Visit Provider Internal Medicine Hypertension Specialist
DX: N18.30 Chronic kidney disease, stage 3 unspecified (principal); D63.8 Anemia in other chronic diseases classified elsewhere
CPT/HCPCS: 36415; 80048; 81001; 82570; 83970; 84156; 85027; 99212

== ENCOUNTER 2024-10-22 10:40 | Outpatient (AMB) | payer MEDICARE, SELFPAY ==
[2024-10-22 10:43] VITALS: BP 182/70; PULSE 80; O2SAT 98
--- NOTE | 2024-10-22 10:43 | HO.NEPHOV_ITS ---
Vital Signs 10/22/24 10:43 Weight 197 lb BP 182/70 H Blood Pressure Location Lt brachial Position Sitting Pulse 80 Pulse Source Pulse Oximeter Pulse Oximetry (%) 98 Oxygen Delivery Method Room Air Intake Visit Reasons: Last seen 07/05/2023 CKD stage 3, HTN Entry Examiner Required: No Accompanied by: Spouse Allergies naproxen [NAPROXEN] Adverse Reaction (Mild, Verified 10/22/24 10:46) HALLUCINATIONS Medication List - Last Reconciled 10/22/24 by Ben Joe MD aspirin (Adult Low Dose Aspirin) 81 mg PO DAILY blood sugar diagnostic ([employer] Verio test strips) TEST ONCE DAILY cholecalciferol (vitamin D3) 25 mcg PO DAILY ferrous sulfate 325 mg PO DAILY glipizide 5 mg PO BID lancets (Onsite CareTouch Delica Lancets) TEST ONCE DAILY metoprolol succinate ER 50 mg PO DAILY tq-mxs-zrpao-N2-xhsrwql-rqqdes [id number] mcg (Centrum Silver Ultra Men's) 1 tab PO DAILY pioglitazone (Actos) 15 mg PO DAILY simvastatin 40 mg PO DAILY HPI Comments Details: [place] man with long standing DM and HTN 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 Lim for Anemia and MCGP - Monoclonal gammopathy of uncertain significance, IgG kappa and IgG lambda. 10/22/24 Here for follow up after more than a year No dyspnea. No nausea/vomiting NO urinary symptoms Meds reviewed [facility] Medical History Obesity Hypertension 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, controlled Diabetes mellitus Family History Father Hx of diabetes mellitus Leukemia Brother Hx of diabetes mellitus Brother Hx of diabetes mellitus Social History Household Members: Spouse Housing: House Are you a primary nursing care partner to a significant other at home: No Do you presently have visiting nurse or other home services: Yes Alcohol intake: never Patient Tobacco Use Status: Former Tobacco user Tobacco use type: Cigarette e-Cigarette/Vaping Use: Never Used Second Hand Smoke Exposure: No service: No Current occupational status: retired Cognitive needs: No Hearing needs: No Vision needs: Yes (glasses ) Physical Exam Vital Signs: Last Vital Signs Pulse 80 10/22/24 10:43 BP 182/70 H 10/22/24 10:43 Pulse Ox 98 10/22/24 10:43 Oxygen Delivery Method Room Air 10/22/24 10:43 Const General: comfortable Nutritional Appearance: well nourished Orientation/consciousness: patient oriented x3 HEENT Head: No normal to inspection Mouth: moist mucous membranes Neck Neck: Yes supple and Yes no JVD Resp Auscultation: clear to auscultation bilaterally and no rales Cardio Jugular venous distension: no JVD Palpation: no palpable S3 and no palpable S4 Heart sounds: no rubs GI Palpation (GI): Soft to palpation and nontender Percussion: No Fluid wave present General: Yes no CVA tenderness Back/Spine/Pelvis Back: no CVA tenderness Skin General skin exam: no rashes or lesions noted Neuro General: patient oriented x3 Extrem General: Yes no pedal edema and No clubbing Results Reviewed Results Reviewed: Recent Cr 1.74 Nephrology Results: Hgb 9.7 g/dl (14.0-18.0) L 06/12/23 WBC 9.8 X10*3/uL (4.8-10.8) 06/12/23 Plt Count 244 X10*3/uL (160-400) 06/12/23 Sodium 143 mmol/L (135-145) 06/12/23 Potassium 4.2 mmol/L (3.3-5.1) 06/12/23 Chloride 114 mmol/L (96-108) H 06/12/23 Carbon Dioxide 21 mmol/L (22-29) L 06/12/23 BUN 63 mg/dL (9-16) H 06/12/23 Creatinine 1.95 mg/dL (0.5-1.4) H 06/12/23 Calcium 9.2 mg/dL (8.4-10.2) 06/12/23 Assessment & Plan Assessment & Plan (1) Anemia of chronic disease: Code(s): D63.8 - Anemia in other chronic diseases classified elsewhere Category: Medical (2) CKD (chronic kidney disease) stage 3, GFR 30-59 ml/min: Code(s): N18.30 - Chronic kidney disease, stage 3 unspecified Category: Medical Plan CKD 3 B in a sitting of DM And HTN Renal function is infact stable. Creatinine is 1.73 and was around 2.3 in Continue to avoid nephrotoxins including NSAIDS Increase PO fludi intake Maintain BP 130/80 Optimize blood sugar control -Goal A1C < 7% h/o Anemia with MCGP Follow up Hem/onc Used to see Shall follow along NO changes were made today Orders: Orders Basic Metabolic Panel Today N18.30 - Chronic kidney disease, stage 3 unspecified Complete Blood Count no Diff Today N18.30 - Chronic kidney disease, stage 3 unspecified Basic Metabolic Panel 3 Months N18.30 - Chronic kidney disease, stage 3 unspecified Complete Blood Count no Diff 3 Months N18.30 - Chronic kidney disease, stage 3 unspecified Total Protein Urine Random Today N18.30 - Chronic kidney disease, stage 3 unspecified UA and rflx microscopic Today N18.30 - Chronic kidney disease, stage 3 unspecified Creatinine Urine Today N18.30 - Chronic kidney disease, stage 3 unspecified Parathyroid Hormone Intact Today N18.30 - Chronic kidney disease, stage 3 unspecified Coding Level of Care Code Est Pt Level 4 (37633) Diagnoses Anemia of chronic disease D63.8 CKD (chronic kidney disease) stage 3, GFR 30-59 ml/min N18.30
--- OUTSIDE RECORDS SUMMARY | 2024-10-22 11:44 | XMS_ITS | Encounter Summary ---
Author Organization [facility] Address [address] [place] [id number] Care Team Providers Care Store Lead Name Role Phone Andre Forman MD Primary Care Provider [phone] Reason for Visit * Reason Onset Date Comments Dickson: Fax reggie 10/06/2024 Encounter Details Date Type Department Care Team (Late st Contact Info) Description 10/06/2024 Telephone Internal Medicine - [place] [address] [facility] [address] [place] [phone] Andre Forman MD [address] [facility] [address] [place] [address] Dickson: Fax reggie Social History Tobacco Use Types Packs/Day Years Used Date Smoking Tobacco: Former Alcohol Use Standard Drinks/Week Comments Not Asked 0 (1 standard drink = 0.6 oz pur e alcohol) Sex and Gender Information Value Date Recorded Sex Assigned at Not on file Legal Sex Male 5:00 PM EST Gender Identity Not on file Sexual Orientation Not on file documented as of this encounter Progress Notes * Kang Velázquez [place] - 10/07/2024 1:47 PM EDT Faxed requested info to number provided * Michelle Liriano - 10/06/2024 2:20 PM EDT [facility] called and requested the last office notes and insurance information. Please advise documented in this encounter Plan of Treatment Upcoming Encounters Date Type Department Care Team (Late st Contact Info) Description 12/18/2024 9:30 AM EDT Office Visit [facility] Hematology Oncology [address] [place] [phone] Marsha Davidson PA [address] [place] [address] 04/06/2025 8:45 AM EDT Office Visit Internal Medicine - [place] [address] [phone] Andre Forman MD [address] [id number] documented as of this encounter Visit Diagnoses Not on filedocumented in this encounter Care Teams Store Lead Relationship Specialty Start Date End Date Andre Forman MD [address] [address] PCP - General 10/10/23 documented as of this encounter
--- OUTSIDE RECORDS SUMMARY | 2024-10-22 11:44 | XMS_ITS | Clinical Summary ---
Author Organization [address] [place] [address] Address [address] [place] [address] Phone Care Team Providers Care Electric Lift Truck Driver Name Role Phone Anrde Forman MD Primary Care Provider [phone] Allergies Active Allergy Reactions Criticality Noted Date Comments Naproxen 09/24/2023 Medications aspirin 81 mg EC tablet Take 1 Tablet by mouth daily. Active cholecalciferol (VITAMIN D-3) 25 mcg (1,000 unit) capsule Take 1 Capsule by mouth daily. Active ferrous sulfate 325 mg (65 mg elemental iron) tablet Take 1 Tablet by mouth daily. 03/24/2024 Active ONETOUCH ULTRASOFT LANCETS MISC Check blood sugar twice a day. 02/04/2024 Active multivitamin with minerals tablet Take 1 Tablet by mouth daily. Active OneTouch Ultra Test test strip Check blood sugar twice a day. 02/04/2024 Active metoprolol succinate (TOPROL-XL) 50 mg 24 hr tablet Take 1 tablet (50 mg total) by mouth 1 (one) time each day. Do not crush or chew. 90 each 1 06/09/2024 12/07/19 25 Active glipiZIDE (GLUCOTROL) 5 mg tablet TAKE 1 TABLET BY MOUTH TWICE A DAY BEFORE MEALS 180 tablet 1 09/13/2024 Active simvastatin (ZOCOR) 40 mg tablet TAKE 1 TABLET BY MOUTH EVERYDAY AT BEDTIME 90 tablet 1 09/15/2024 Active pioglitazone (ACTOS) 15 mg tablet Take 1 tablet (15 mg total) by mouth 1 (one) time each day. 90 tablet 1 09/22/2024 Active Active Problems Problem Noted Date Diagnosed Date Nonallopathic lesion of sacral region 09/06/2015 Sprain of sacroiliac ligament 09/06/2015 Encounters Date Type Department Care Team Description 10/16/2024 Telephone Internal Medicine [facility] 175 [facility] [address] [place] [address] Andre Forman MD Results 10/06/2024 Telephone Internal Medicine [address] [place] [address] Andre Forman MD Joseph: Fax reggie 10/03/2024 11:00 AM EDT Office Visit Internal Medicine [address] [place] [address] Andre Forman MD Primary hypertension (Primary Dx); Hypercholesterolemia; Stage 3 chronic kidney disease, unspecified whether stage 3a or 3b CKD ([facility] V24, [facility] V28); Diabetes mellitus type 1.5, managed as type 2 ([facility] V24, [facility] V28) from Last 3 Months Immunizations Name Administration Dates Next Due Moderna SARS-CoV-2 COVID-19, mRNA, LNP-S, preservative free 06/10/2021 Medical History Medical History Date Comments MGUS (monoclonal gammopathy of unknown significance) DX:MGUS (monoclonal gammopat hy of unknown significance) Anemia DX:Anemia CKD (chronic kidney disease) DX: CKD (chronic kidney disease) Diabetes mellitus type 2, co ntrolled, with complications ([facility] V24, [facility] V28) DX:Diabetes mellitus type 2, controlled, with complications ([facility]) Hyperlipidemia DX:Hyperlipidemi a Social History Tobacco Use Types Packs/Day Years Used Date Smoking Tobacco: Former Alcohol Use Standard Drinks/Week Comments Not Asked 0 (1 standard drink = 0.6 oz pur e alcohol) Sex and Gender Information Value Date Recorded Sex Assigned at Not on file Legal Sex Male 5:00 PM EST Gender Identity Not on file Sexual Orientation Not on file Obstetrics History Last Filed Vital Signs Vital Sign Reading Time Taken Comments Blood Pressure 140/60 10/03/2024 11:10 AM EDT Pulse 67 10/03/2024 10:51 AM EDT Temperature 36.6 ??C (97.8 ??F) 10/03/2024 10:51 AM E DT Respiratory Rate - - Oxygen Saturation 99% 10/03/2024 10:51 AM EDT Inhaled Oxygen Concentration - - Weight 82.8 kg (182 lb 9.6 oz) 10/03/2024 10:51 AM EDT Height 172.7 cm (5' 8 ) 01/10/2024 8:43 AM EDT Body Mass Index 27.76 01/10/2024 8:43 AM EDT Plan of Treatment Upcoming Encounters Date Type Department Care Team (Late st Contact Info) Description 12/18/2024 9:30 AM EDT Office Visit [facility] Hematology Oncology [address] [place] [phone] Marsha Davidson PA [address] [place] [address] 04/06/2025 8:45 AM EDT Office Visit Internal Medicine - [place] 175 [facility] [address] [place] [phone] Andre Forman MD 175 [facility] 200 [place] [address] Health Maintenance Due Date Last Done Comments Diabetes: Annual Foot Exam 1950 DTaP,Tdap,and Td Vaccines (1 - Tdap) 1957 Zoster Vaccines (1 of 2) 1957 RSV Immunization Adult Patients (1 - 1-dose 75+ series) 2013 Pneumococcal Vaccine: 50+ Years (3 of 3 - PCV) 06/15/2017 06/15/2016, 11/06/2013 Depression Screening 05/10/2022 Falls Risk Assessment 05/10/2022 Medicare Annual Wellness Visit 05/10/2022 Social Influencers of Health Screening 05/10/2022 COVID-19 Vaccine (4 - 2023-2 5 season) 2024 06/10/2021, 09/09/2020, 08/12/2020 Influenza Vaccine (Season Ended) 2025 04/22/2021, 06/15/2016 Diabetes: Blood Sugar Contro l Test (HGBA1C) 04/17/2025 10/15/2024, 09/25/2023 Diabetes: Annual Retina Eye Exam 08/08/2025 08/08/2024 Hypertension/CHF/CAD Annual BMP Blood Test 10/15/2025 10/15/2024, 09/25/2023 Cholesterol Screening (Lipid Panel) 10/15/2029 10/15/2024, 09/25/2023 HIB Vaccines Aged Out No longer eligi ble based on patient's age to complete this topic HPV Vaccines Aged Out No longer eligi ble based on patient's age to complete this topic Hepatitis A Vaccines Aged Out No long er eligible based on patient's age to complete this topic Hepatitis B Vaccines Aged Out No long er eligible based on patient's age to complete this topic IPV Vaccines Aged Out No longer eligi ble based on patient's age to complete this topic MMR Vaccines Aged Out No longer eligi ble based on patient's age to complete this topic Meningococcal ACWY Vaccine Aged Out N o longer eligible based on patient's age to complete this topic Meningococcal B Vaccine Aged Out No l onger eligible based on patient's age to complete this topic RSV Immunization Patients Under 20 months Aged Out No longer eligible b ased on patient's age to complete this topic Varicella Vaccines Aged Out No longer eligible based on patient's age to complete this topic Procedures Procedure Name Priority Date/Time Associated Diagnosis Comments CBC WITH AUTO DIFFERENTIAL Routine 10/15/2024 8:43 AM EDT Primary hypertension Hypercholesterolemi a Stage 3 chronic kidney disease, unspecified whether stage 3a or 3b CKD ([facility] V24, [facility]/HCC V28) Diabetes mellitus type 1.5, managed as type 2 ([facility] V24, [facility]/HCC V28) HEMOGLOBIN A1C Routine 10/15/2024 8:43 AM EDT Primary hypertension Hypercholesterolemi a Stage 3 chronic kidney disease, unspecified whether stage 3a or 3b CKD ([facility]/HCC V24, [facility]/HCC V28) Diabetes mellitus type 1.5, managed as type 2 ([facility]/HCC V24, [facility]/HCC V28) CBC AND DIFFERENTIAL Routine 10/15/2024 8:43 AM EDT Primary hypertension Hypercholesterolemi a Stage 3 chronic kidney disease, unspecified whether stage 3a or 3b CKD ([facility]/HCC V24, [facility]/HCC V28) Diabetes mellitus type 1.5, managed as type 2 ([facility]/HCC V24, [facility]/HCC V28) COMPREHENSIVE METABOLIC PANEL Routine 10/15/2024 8:43 AM EDT Primary hypertension Hypercholesterolemi a Stage 3 chronic kidney disease, unspecified whether stage 3a or 3b CKD ([facility] V24, [facility] V28) Diabetes mellitus type 1.5, managed as type 2 ([facility] V24, [facility] V28) LIPID PANEL WITH REFLEX TO DIRECT LDL Routine 10/15/2024 8:43 AM EDT Primary hypertension Hypercholesterolemi a Stage 3 chronic kidney disease, unspecified whether stage 3a or 3b CKD ([facility] V24, [facility] V28) Diabetes mellitus type 1.5, managed as type 2 ([facility] V24, [facility] V28) THYROID STIMULATING HORMONE Routine 10/15/2024 8:43 AM EDT Primary hypertension Hypercholesterolemi a Stage 3 chronic kidney disease, unspecified whether stage 3a or 3b CKD ([facility] V24, [facility] V28) Diabetes mellitus type 1.5, managed as type 2 ([facility] V24, [facility] V28) EXTERNAL DIABETIC RETINA EYE EXAM 08/08/2024 from Last 3 Months Results * Lipid panel with reflex to direct LDL (10/15/2024 8:43 AM EDT) Cholesterol 176 0 - 200 mg/dL LAB CHEMISTRY METHOD 10/15/2024 10:48 AM [facility] Triglycerides 130 0 - 150 mg/dL LAB CHEMISTRY METHOD 10/15/2024 10:48 AM T [facility] HDL 63 >=40 mg/dL LAB CHEMISTRY METHOD 10/15/2024 10:48 AM [facility] LDL Calculated 87 0 - 100 mg/dL LAB CHEMISTRY METHOD 10/15/2024 10:48 AM [facility] VLDL Cholesterol Shola 26 mg/dL LAB CHEMISTRY METHOD 10/15/2024 10:48 AM T [facility] Non HDL Chol. (LDL+VLDL) 113 <145 mg/dL LAB CHEMISTRY METHOD 10/15/2024 10:48 AM [facility] Chol/HDL Ratio 2.8 0.0 - 4.4 LAB CHEMISTRY METHOD 10/15/2024 10:48 AM [facility] Blood Venous blood specimen / Unknown Venipuncture / Unknown 10/15/2024 8:43 AM EDT 10/15/2024 8:43 AM EDT us Andre Forman MD LAB BLOOD ORDERABLES Final Resul t [facility] [address] [place] [address], [place] [phone] * (ABNORMAL) CBC auto differential (10/15/2024 8:43 AM EDT) WBC 6.9 4.8 - 10.8 K/mcL LAB HEMETOLOGY METHOD 10/15/2024 10:02 AM [facility] RBC 2.90(L) 4.50 - 5.50 M/mcL LAB HEMETOLOGY METHOD 10/15/2024 10:02 AM [facility] Hemoglobin 9.3(L) 13.5 - 17.5 g/dL LAB HEMETOLOGY METHOD 10/15/2024 10:02 AM [facility] Hematocrit 30.0(L) 42.0 - 54.0 % LAB HEMETOLOGY METHOD 10/15/2024 10:02 AM [facility] MCV 103.4(H) 79.0 - 98.0 FL LAB HEMETOLOGY METHOD 10/15/2024 10:02 AM [facility] MCH 32.1(H) 27.0 - 32.0 pcg LAB HEMETOLOGY METHOD 10/15/2024 10:02 AM [facility] MCHC 31.0(L) 32.0 - 37.0 g/dL LAB HEMETOLOGY METHOD 10/15/2024 10:02 AM [facility] RDW 15.3(H) 11.0 - 15.0 % LAB HEMETOLOGY METHOD 10/15/2024 10:02 AM [facility] Platelets 164 130 - 400 K/mcL LAB HEMETOLOGY METHOD 10/15/2024 10:02 AM [facility] MPV 10.7 7.0 - 11.0 FL LAB HEMETOLOGY METHOD 10/15/2024 10:02 AM [facility] NRBC 0.0 <1.0 % LAB HEMETOLOGY METHOD 10/15/2024 10:02 AM [facility] NRBC Absolute 0.00 <0.10 K/mcL LAB HEMETOLOGY METHOD 10/15/2024 10:02 AM [facility] Neutrophils Relative 34.7 % LAB HEMETOLOGY METHOD 10/15/2024 10:02 AM [facility] Lymphocytes Relative 54.2 % LAB HEMETOLOGY METHOD 10/15/2024 10:02 AM [facility] Monocytes Relative 7.2 % LAB HEMETOLOGY METHOD 10/15/2024 10:02 AM [facility] Eosinophils Relative 3.2 % LAB HEMETOLOGY METHOD 10/15/2024 10:02 AM [facility] Basophils Relative 0.4 % LAB HEMETOLOGY METHOD 10/15/2024 10:02 AM [facility] Immature Granulocytes Relative 0.3 % LAB HEMETOLOGY METHOD 10/15/2024 10:02 AM [facility] Neutrophils Absolute 2.39 1.50 - 7.00 K/mcL LAB HEMETOLOGY METHOD 10/15/2024 10:02 AM [facility] Lymphocytes Absolute 3.74 1.00 - 5.00 K/mcL LAB HEMETOLOGY METHOD 10/15/2024 10:02 AM EDT [facility] Monocytes Absolute 0.50 0.20 - 1.00 K/[facility] LAB HEMETOLOGY METHOD 10/15/2024 10:02 AM EDT [facility] Eosinophils Absolute 0.22 0.00 - 0.50 K/[facility] LAB HEMETOLOGY METHOD 10/15/2024 10:02 AM EDT [facility] Basophils Absolute 0.03 0.00 - 0.20 K/[facility] LAB HEMETOLOGY METHOD 10/15/2024 10:02 AM EDT [facility] Immature Granulocytes Absolute 0.02 0.00 - 0.03 K/[facility] LAB HEMETOLOGY METHOD 10/15/2024 10:02 AM EDT [facility] Blood Venous blood specimen / Unknown Venipuncture / Unknown 10/15/2024 8:43 AM EDT 10/15/2024 8:43 AM EDT us Andre Forman MD LAB BLOOD ORDERABLES Final Resul t Performing Organization Address [facility]/ZIP Co de Phone Number [facility] [address] [place] [address], [place] [phone] * Thyroid stimulating hormone (10/15/2024 8:43 AM EDT) TSH 3.18 0.40 - 4.00 mcIU/mL LAB CHEMISTRY METHOD 10/15/2024 1:08 PM EDT [facility] Blood Venous blood specimen / Unknown Venipuncture / Unknown 10/15/2024 8:43 AM EDT 10/15/2024 8:43 AM EDT us Andre Forman MD LAB BLOOD ORDERABLES Final Resul t [facility] [address] [place] [address], [place] [phone] * (ABNORMAL) Hemoglobin A1c (10/15/2024 8:43 AM EDT) Pathologist [facility] Hemoglobin A1C 6.5(H) <6.5 % LAB CHEMISTRY METHOD 10/15/2024 11:23 AM EDT [facility] Mean Bld Glu Estim. 140 mg/dL LAB CHEMISTRY METHOD 10/15/2024 11:23 AM EDT [facility] Blood Venous blood specimen / Unknown Venipuncture / Unknown 10/15/2024 8:43 AM EDT 10/15/2024 8:43 AM EDT Andre Forman MD LAB BLOOD ORDERABLES Final Resul t [facility] [address] [place] [address], [place] [phone] * (ABNORMAL) Comprehensive metabolic panel (10/15/2024 8:43 AM EDT) [facility] Sodium 143 133 - 145 mmol/L LAB CHEMISTRY METHOD 10/15/2024 10:48 AM [facility] Potassium 4.1 3.5 - 5.5 mmol/L LAB CHEMISTRY METHOD 10/15/2024 10:48 AM [facility] Chloride 113(H) 96 - 110 mmol/L LAB CHEMISTRY METHOD 10/15/2024 10:48 AM [facility] CO2 19(L) 21 - 32 mmol/L LAB CHEMISTRY METHOD 10/15/2024 10:48 AM [facility] Anion Gap 11 3 - 11 LAB CHEMISTRY METHOD 10/15/2024 10:48 AM [facility] Glucose 173(H) 70 - 100 mg/dL LAB CHEMISTRY METHOD 10/15/2024 10:48 AM [facility] BUN 59(H) 5 - 25 mg/dL LAB CHEMISTRY METHOD 10/15/2024 10:48 AM [facility] Creatinine 1.74(H) 0.70 - 1.30 mg/dL LAB CHEMISTRY METHOD 10/15/2024 10:48 AM [facility] eGFR 38(L) >=60 mL/min/1. 73m2 LAB CHEMISTRY METHOD 10/15/2024 10:48 AM [facility] Comment:Calculation based on the Chronic Kidney Disease Epidemiology Collaboration (CKD-EPI) equation refit without adjustment for race. BUN/Creatinine Ratio 33.9 LAB CHEMISTRY METHOD 10/15/2024 10:48 AM [facility] Calcium 8.7 8.5 - 10.5 mg/dL LAB CHEMISTRY METHOD 10/15/2024 10:48 AM [facility] AST (SGOT) 24 10 - 42 unit/L LAB CHEMISTRY METHOD 10/15/2024 10:48 AM [facility] ALT (SGPT) 41 10 - 60 unit/L LAB CHEMISTRY METHOD 10/15/2024 10:48 AM [facility] Alkaline Phosphatase 102 42 - 121 unit/L LAB CHEMISTRY METHOD 10/15/2024 10:48 AM [facility] Total Protein 7.0 6.0 - 8.0 g/dL LAB CHEMISTRY METHOD 10/15/2024 10:48 AM [facility] Albumin 3.5 3.2 - 5.0 g/dL LAB CHEMISTRY METHOD 10/15/2024 10:48 AM [facility] Total Bilirubin 0.4 0.0 - 1.4 mg/dL LAB CHEMISTRY METHOD 10/15/2024 10:48 AM [facility] Blood Venous blood specimen / Unknown Venipuncture / Unknown 10/15/2024 8:43 AM EDT 10/15/2024 8:43 AM EDT Andre Forman MD LAB BLOOD ORDERABLES Final Resul t [facility] [address] [place] [address], * External Diabetic Retina Eye Exam Report (08/08/2024) Anatomical Region Laterality Modality Ultrasound us Provider [facility] US PROCEDURES Final Result from Last 3 Months Insurance [employer] - [place] MEDICARE ADVANTAGE Care Teams Electric Lift Truck Driver Relationship Specialty Start Date End Date Andre Forman MD [address] [address] PCP - General 10/10/23
--- OUTSIDE RECORDS SUMMARY | 2024-10-22 11:44 | XMS_ITS | Clinical Summary ---
Author Organization [facility] Address [address] [place] [address] Phone Care Team Providers Care Channel Rougher Name Role Phone Pee Escobedo MD Primary Care Provider [phone] Allergies Active Allergy Reactions Criticality Noted Date Comments Influenza Virus Vaccine 09/06/2015 Medications aspirin (ST JESSICA) 81 MG EC tablet Take 1 tablet by mouth 1 (one) time each day Active Multiple Vitamins-Minera ls (CENTRUM SILVER 50+MEN PO) Take 1 tablet by mouth 1 (one) time each day Active glipiZIDE (GLUCOTROL) 5 MG tablet Take 1 tablet by mouth 2 (two) times a day Active cholecalciferol (VITAMIN D-3) 25 MCG (1000 UT) capsule Take 1 capsule by mouth 1 (one) time each day Active ferrous sulfate 325 (65 Fe) MG tablet Take 1 tablet by mouth 1 (one) time each day 06/13/2021 Active pioglitazone (ACTOS) 15 MG tablet Take 15 mg by mouth 1 (one) time each day 03/23/2022 Active Metoprolol Succinate 50 MG capsule extended-releas e 24 hour sprinkle Take 50 mg by mouth 1 (one) time each day 02/02/2022 Active simvastatin (ZOCOR) 40 MG tablet Take 40 mg by mouth 1 (one) time each day 01/30/2023 Active Active Problems Problem Noted Date Diagnosed Date Chronic kidney disease stage 3 08/25/2020 Anemia of chronic renal failure 08/25/2020 Hyperkalemia 08/25/2020 Essential hypertension 08/25/2020 Hypertensive heart disease without congestive he art failure 08/25/2020 Somatic dysfunction of sacral region 09/06/2015 Immunizations Immunization Administration Dates Next Due Influenza, Unspecified 04/22/2021,06/15/2016 Moderna SARS-COV-2 06/10/2021,06/10/2021, 021,08/12/2020 Pneumococcal Polysaccharide 06/15/2016, 4 Family History Medical History Relation Comments Cancer Father Diabetes Father Relation Status Comments Father Mother Social History Tobacco Use Types Packs/Day Years Used Date Smoking Tobacco: Former Smokeless Tobacco: Never Tobacco Cessation:Counseling Given: Not Answered Alcohol Use Standard Drinks/Week Comments No 0 (1 standard drink = 0.6 oz pur e alcohol) Sex and Gender Information Value Date Recorded Sex Assigned at Not on file Legal Sex Male 5:05 PM EST Gender Identity Not on file Sexual Orientation Not on file Last Filed Vital Signs Vital Sign Reading Time Taken Comments Blood Pressure 140/68 02/28/2023 1:21 PM EDT Pulse 64 02/28/2023 1:21 PM EDT Temperature - - Respiratory Rate - - Oxygen Saturation 96% 02/28/2023 1:21 PM EDT Inhaled Oxygen Concentration - - Weight 88.1 kg (194 lb 3.2 oz) 02/28/2023 1:21 P M EDT Height 172.7 cm (5' 8 ) 02/28/2023 1:21 PM EDT Body Mass Index 29.53 02/28/2023 1:21 PM EDT Plan of Treatment Health Maintenance Due Date Last Done Comments Pneumococcal Vaccine: 50+ Years (3 of 3 - PCV) 06/15/2017 06/15/2016, 11/06/2013 Diabetes: Hemoglobin A1C 10/09/2024 09/25/2023 Diabetes: Ophthalmology Exam 10/09/2024 Diabetes: Pedal Pulse Checked 10/09/2024 Diabetes: Sensory Foot Exam 10/09/2024 Diabetes: Visual Foot Exam 10/09/2024 Pneumococcal Vaccine: Peds ( 0 to 5 Years) and At-Risk Patients (6 to 49 Years) Discontinued 06/15/2016, 11/06/2013 Hepatitis B Vaccine Aged Out No longe r eligible based on patient's age to complete this topic [place] [address] [facility] Care Teams Channel Rougher Relationship Specialty Start Date End Date Pee Escobedo MD [address] [place] [address] PCP - General Internal Medicine 08/25/20
--- OUTSIDE RECORDS SUMMARY | 2024-10-22 11:44 | XMS_ITS | Clinical Summary ---
Author Organization [facility] Address [address] [place] [id number] Care Team Providers Care Building Engineer Name Role Phone Andre Forman MD Primary Care Provider Unavailab le Allergies Active Allergy Reactions Criticality Noted Date Comments Naproxen 11/12/2023 Medications Medication Sig Dispensed Refills Start Date End Date Status glipiZIDE (GLUCOTROL) tablet 5 mg Take 1 tablet (5 mg total) by mouth 2 (two) times a day before breakfast and dinner. 0 Active metoprolol succinate (TOPROL-XL) 24 hr tablet 50 mg Take by mouth daily. 0 Active ferrous sulfate 325 (65 FE) MG tablet Take 1 tablet (325 mg total) by mouth every morning with breakfast. 0 Active vitamin D3 (cholecalciferol) 25 MCG (1000 UT) tablet Take 1 tablet (25 mcg total) by mouth daily. 0 Active simvastatin (ZOCOR) tablet 40 mg Take 1 tablet (40 mg total) by mouth every night at bedtime. 0 Active aspirin EC 81 MG tablet Take 1 tablet (81 mg total) by mouth daily. 0 Active Social History Tobacco Use Types Packs/Day Years Used Date Smoking Tobacco: Former Cigarettes Smokeless Tobacco: Never Comments:Quit 53 years ago Alcohol Use Standard Drinks/Week Comments Not Currently 0 (1 standard drink = 0.6 oz pur e alcohol) rare Sex and Gender Information Value Date Recorded Sex Assigned at Not on file Gender Identity Not on file Sexual Orientation Not on file Job Start Date Occupation Industry Not on file Not on file Not on file Last Filed Vital Signs Vital Sign Reading Time Taken Comments Blood Pressure 161/62 11/12/2023 8:31 AM EDT Pulse 80 11/12/2023 8:31 AM EDT Temperature 36.6 ??C (97.9 ??F) 11/12/2023 8:31 AM ED T Respiratory Rate - - Oxygen Saturation 100% 11/12/2023 8:31 AM EDT Inhaled Oxygen Concentration - - Weight 83.9 kg (185 lb) 11/12/2023 8:31 AM EDT Height 172.7 cm (5' 8 ) 11/12/2023 8:31 AM EDT Body Mass Index 28.13 11/12/2023 8:31 AM EDT Plan of Treatment Health Maintenance Due Date Last Done Comments Depression Screening 1950 Preventative Health Evaluation 1956 DTap / Tdap / Td (1 - Tdap) 1957 Shingrix-Zoster Vaccine (1 o f 2) 1988 Fall Risk Assessment 2003 RSV Adult > 60+ Yrs or (1 - 1-dose 75+ series) 2013 Pneumococcal Vaccine (2 of 2 - PCV) 06/15/2017 06/15/2016, 11/06/2013 COVID-19 Vaccine (2 - 2023-2 5 season) 2024 06/10/2021 Influenza Vaccine (#1) 2024 , 06/15/2016 Hepatitis B Vaccines Aged Out No long er eligible based on patient's age to complete this topic RSV Ped < 20 months Aged Out No longe r eligible based on patient's age to complete this topic Care Teams Building Engineer Relationship Specialty Start Date End Date Andre Forman MD PCP - General Internal Medicine 10/10/23
--- OUTSIDE RECORDS SUMMARY | 2024-10-22 11:44 | XMS_ITS | Encounter Summary ---
Author Organization [facility] Address [id number] [place] [phone] Care Team Providers Care Retail General Manager Name Role Phone Andre Forman MD Primary Care Provider [phone] Reason for Visit * Reason Onset Date Comments Results 10/16/2024 Encounter Details Date Type Department Care Team (Late st Contact Info) Description 10/16/2024 Telephone Internal Medicine - [place] [address] [phone] Andre Forman MD 175 [facility] [address] [place] [address] Results Social History Tobacco Use Types Packs/Day Years [...] as of this encounter Progress Notes * Michelle Liriano - 10/17/2024 11:39 AM EDT Patient called and requested a call back about the results. Cb# [phone] * Tigre Rosales MA - 10/17/2024 10:30 AM EDT 10/17 [facility] to return call regarding lab results. * Jess Rogers - 10/16/2024 2:26 PM EDT Contact patient re: lab results documented in this encounter Plan of Treatment Upcoming Encounters Date Type Department Care Team (Late st Contact Info) Description 12/18/2024 9:30 AM EDT Office Visit [facility] Hematology Oncology [address] [place] [address] Marsha Davidson PA [address] [place] [address] 04/06/2025 8:45 AM EDT Office Visit Internal Medicine - [place] [address] [phone] Andre Forman MD [address] [address] documented as of this encounter Visit Diagnoses Not on filedocumented in this encounter Care Teams Retail General Manager Relationship Specialty Start Date End Date Andre Forman MD [address] [address] PCP - General 10/10/23 documented as of this encounter
== END 2024-10-22 11:03 | disposition home or self-care (01) ==
LOC: HO.HKAS 10:41
PROVIDERS: PCP Internal Medicine; Visit Provider Internal Medicine Hypertension Specialist
DX: N18.30 Chronic kidney disease, stage 3 unspecified (principal); D63.8 Anemia in other chronic diseases classified elsewhere
CPT/HCPCS: 99214

== ENCOUNTER 2025-01-19 14:39 | Outpatient (REF) | payer MEDICARE, SELFPAY ==
--- OUTSIDE RECORDS SUMMARY | 2025-01-19 15:04 | XMS_ITS | Clinical Summary ---
Author Organization [facility] Address [address] [place] [address] Phone Care Team Providers Care Cloth Coverer Name Role Phone Pee Escobedo MD Primary Care Provider [phone] Allergies Active Allergy Reactions Criticality Noted Date [...] patient's age to complete this topic Insurance [place] [address] [facility] Care Teams Cloth Coverer Relationship Specialty Start Date End Date Pee Escobedo MD [address] [place] [address] PCP - General Internal Medicine 08/25/20
--- OUTSIDE RECORDS SUMMARY | 2025-01-19 15:04 | XMS_ITS | Clinical Summary ---
Author Organization 175 [facility] Address [address] [place] [address] Phone Care Team Providers [facility] Assistant Name Role Phone Andre Forman MD Primary Care Provider [phone] Allergies Active Allergy Reactions Criticality Noted Date Comments Naproxen 09/24/2023 Medications aspirin 81 mg EC tablet Take 1 Tablet by mouth daily. Active cholecalciferol (VITAMIN D-3) 25 mcg (1,000 unit) capsule Take 1 Capsule by mouth daily. Active ONETOUCH ULTRASOFT LANCETS [facility] Check blood sugar twice a day. 02/04/2024 Active multivitamin with minerals tablet Take 1 Tablet by mouth daily. Active OneTouch Ultra Test test strip Check blood sugar twice a day. 02/04/2024 Active glipiZIDE (GLUCOTROL) 5 mg tablet TAKE 1 TABLET BY MOUTH TWICE A DAY BEFORE MEALS 180 tablet 1 09/13/2024 Active simvastatin (ZOCOR) 40 mg tablet TAKE 1 TABLET BY MOUTH EVERYDAY AT BEDTIME 90 tablet 1 09/15/2024 Active pioglitazone (ACTOS) 15 mg tablet Take 1 tablet (15 mg total) by mouth 1 (one) time each day. 90 tablet 1 09/22/2024 Active metoprolol succinate (TOPROL-XL) 50 mg 24 hr tablet TAKE 1 TABLET BY MOUTH 1 TIME EACH DAY. DO NOT CRUSH OR CHEW. 90 tablet 1 11/22/2024 Active ferrous sulfate 325 mg (65 mg elemental iron) tablet TAKE 1 TABLET BY MOUTH EVERY DAY 90 tablet 1 12/15/2024 Active Active Problems Problem Noted Date Diagnosed Date Nonallopathic lesion of sacral region 09/06/2015 Sprain of sacroiliac ligament 09/06/2015 Encounters Date Type Department Care Team Description 12/18/2024 9:30 AM EDT Office Visit 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); Macrocytic anemia; Stage 3b chronic kidney disease ([facility] V24, [facility] V28) from Last 3 Months Immunizations Name Administration Dates Next Due Moderna SARS-CoV-2 COVID-19, mRNA, LNP-S, preservative free 06/10/2021 Medical History Medical History Date Comments MGUS (monoclonal gammopathy of unknown significance) DX:MGUS (monoclonal gammopat hy of unknown significance) Anemia DX:Anemia CKD (chronic kidney disease) DX: CKD (chronic kidney disease) Diabetes mellitus type 2, co ntrolled, with complications ([facility] V24, [facility] V28) DX:Diabetes mellitus type 2, controlled, with complications ([facility]) Hyperlipidemia DX:Hyperlipidemi a Social History Tobacco Use Types Packs/Day Years Used Date Smoking Tobacco: Former Tobacco Cessation:Counseling Given: Not Answered Alcohol Use Standard Drinks/Week Comments Not Asked 0 (1 standard drink = 0.6 oz pur e alcohol) Sex and Gender Information Value Date Recorded Sex Assigned at Not on file Legal Sex Male 5:00 PM EST Gender Identity Not on file Sexual Orientation Not on file Obstetrics History Last Filed Vital Signs Vital Sign Reading Time Taken Comments Blood Pressure 165/50 12/18/2024 9:13 AM EDT Pulse 69 12/18/2024 9:13 AM EDT Temperature 36.8 C (98.3 F) 12/18/2024 9:13 AM EDT Respiratory Rate - - Oxygen Saturation 100% 12/18/2024 9:13 AM EDT Inhaled Oxygen Concentration - - Weight 86.6 kg (191 lb) 12/18/2024 9:13 AM EDT Height 172.7 cm (5' 8 ) 01/10/2024 8:43 AM EDT Body Mass Index 29.04 01/10/2024 8:43 AM EDT Plan of Treatment Upcoming Encounters Date Type Department Care Team (Late st Contact Info) Description 04/06/2025 8:45 AM EDT Office Visit Internal Medicine [facility] 175 [facility] [address] [place] [phone] Andre Forman MD [address] [facility] [address] [place] [address] 06/22/2025 8:30 AM EST Office Visit [facility] Hematology Oncology [address] [place] [phone] Marsha Davidson PA [address] [place] [address] Health Maintenance Due Date Last Done Comments Diabetes: Annual Foot Exam 1950 DTaP,Tdap,and Td Vaccines (1 - Tdap) 1957 Zoster Vaccines (1 of 2) 1957 RSV Immunization Adult Patients (1 - 1-dose 75+ series) 2013 Pneumococcal Vaccine: 50+ Years (2 of 2 - PCV) 06/15/2017 06/15/2016, 11/06/2013 Falls Risk Assessment 05/10/2022 Medicare Annual Wellness Visit 05/10/2022 Social Influencers of Health Screening 05/10/2022 COVID-19 Vaccine (4 - 2023-2 5 season) 2024 06/10/2021, 09/09/2020, 08/12/2020 Depression Screening 06/11/2024 Influenza Vaccine (#1) 2025 , 06/15/2016 Diabetes: Blood Sugar Contro l Test (HGBA1C) 04/17/2025 10/15/2024, 09/25/2023 Diabetes: Annual Retina Eye Exam 08/08/2025 08/08/2024 Hypertension/CHF/CAD Annual BMP Blood Test 12/18/2025 12/18/2024, 10/15/2024, 09/25/2023 Cholesterol Screening (Lipid Panel) 10/15/2029 [...] Procedure Name Priority Date/Time Associated Diagnosis Comments FL PROTEIN ELECTROPHORETIC FRACTIONATION & QUANTITATION SERUM Routine 12/18/2024 10:00 AM EDT Macrocytic anemia 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) Stage 3b chronic kidney disease ([facility] V24, [facility] V28) FL IMMUNOFIXATION ELECTROPHORESIS SERUM Routine 12/18/2024 10:00 AM EDT Macrocytic anemia 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) Stage 3b chronic kidney disease ([facility] V24, [facility] V28) PROTEIN, TOTAL Routine 12/18/2024 10:00 AM EDT Macrocytic anemia 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) Stage 3b chronic kidney disease ([facility] V24, [facility] V28) IMMUNOGLOBULINS IGG, IGA, IGM Routine 12/18/2024 10:00 AM EDT Macrocytic anemia 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) Stage 3b chronic kidney disease ([facility] V24, [facility] V28) IMMUNOFIXATION ELECTROPHORESIS Routine 12/18/2024 10:00 AM EDT Macrocytic anemia 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) Stage 3b chronic kidney disease ([facility] V24, [facility] V28) CBC WITH AUTO DIFFERENTIAL Routine 12/18/2024 10:00 AM EDT Macrocytic anemia 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) Stage 3b chronic kidney disease ([facility]/HCC V24, [facility] V28) FERRITIN Routine 12/18/2024 10:00 AM EDT Macrocytic anemia 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) Stage 3b chronic kidney disease ([facility] V24, [facility] V28) IRON AND TIBC Routine 12/18/2024 10:00 AM EDT Macrocytic anemia 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) Stage 3b chronic kidney disease ([facility] V24, [facility] V28) PROTEIN ELECTROPHORESIS, SERUM Routine 12/18/2024 10:00 AM EDT Macrocytic anemia 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) Stage 3b chronic kidney disease ([facility] V24, [facility] V28) KAPPA-LAMBDA QUANTITATIVE FREE LIGHT CHAINS Routine 12/18/2024 10:00 AM EDT Macrocytic anemia 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) Stage 3b chronic kidney disease ([facility] V24, [facility] V28) IMMUNOFIXATION ELECTROPHORESIS Routine 12/18/2024 10:00 AM EDT Macrocytic anemia 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) Stage 3b chronic kidney disease ([facility] V24, [facility] V28) ERYTHROPOIETIN Routine 12/18/2024 10:00 AM EDT Macrocytic anemia 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) Stage 3b chronic kidney disease ([facility] V24, [facility] V28) BASIC METABOLIC PANEL Routine 12/18/2024 10:00 AM EDT Macrocytic anemia 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) Stage 3b chronic kidney disease ([facility] V24, [facility] V28) CBC AND DIFFERENTIAL Routine 12/18/2024 10:00 AM EDT Macrocytic anemia 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) Stage 3b chronic kidney disease ([facility] V24, [facility] V28) HEMOGLOBIN A1C Routine 10/15/2024 8:43 AM EDT Primary hypertension Hypercholesterolemi a Stage 3 chronic kidney disease, unspecified whether stage 3a or 3b CKD ([facility] [place] V24, [facility] V28) Diabetes mellitus type 1.5, managed as type 2 ([facility] V24, [facility] V28) LIPID PANEL WITH REFLEX TO DIRECT LDL Routine 10/15/2024 8:43 AM EDT Primary hypertension Hypercholesterolemi a Stage 3 chronic kidney disease, unspecified whether stage 3a or 3b CKD ([facility] V24, [facility] V28) Diabetes mellitus type 1.5, managed as type 2 ([facility] [place] V24, [facility] V28) EXTERNAL DIABETIC RETINA EYE EXAM 08/08/2024 from Last 3 Months or Most Recently Relevant to Health Maintenance Results * Pathologist Review Immunofixation (12/18/2024 10:00 AM EDT) Pathologist Interpretation Reviewed by Jaylin Valladares MD 12/19/2024 3:05 PM EDT [facility] Blood Venous blood specimen / Unknown Venipuncture / Unknown 12/18/2024 10:00 AM EDT 12/18/2024 12:33 PM EDT Marsha CISSE LAB BLOOD ORDERABLES Final Re sult [facility] [address] [place] [address], [place] [phone] * PATHOLOGIST REVIEW PROTEIN ELECTROPHORESIS (12/18/2024 10:00 AM EDT) Pathologist Interpretation 12/22/2024 3:59 PM EDT [facility] Blood Venous blood specimen / Unknown Venipuncture / Unknown 12/18/2024 10:00 AM EDT 12/18/2024 12:33 PM EDT Marsha CISSE LAB BLOOD ORDERABLES Final Re sult [facility] [address] [place] [address], [place] [phone] * (ABNORMAL) [place]-lambda free light chains, quantitative (12/18/2024 10:00 AM EDT) [place] Free Light Chain 6.98(H) 0.33 - 1.94 mg/dL 12/22/2024 12:[address] [facility] Lambda Free Light Chain 3.77(H) 0.57 - 2.63 mg/dL 12/22/2024 12:[address] [facility] [place]/Lambda FLC Ratio 1.85(H) 0.26 - 1.65 12/22/2024 12:[address] [facility] Comment: Test performed at [facility], [address], [place] [address] Myah Price MD, PhD - [employer] Blood Venous blood specimen / Unknown Venipuncture / Unknown 12/18/2024 10:00 AM EDT 12/18/2024 12:34 PM EDT us Marsha CISSE LAB BLOOD ORDERABLES Final Re sult [facility] [address] [place] [address] * (ABNORMAL) CBC auto differential (12/18/2024 10:00 AM EDT) WBC 6.3 4.8 - 10.8 K/[facility] HEMETOLOGY METHOD 12/18/2024 12:55 PM EDT [facility] RBC 2.80(L) 4.50 - 5.50 M/mcL LAB HEMETOLOGY METHOD [facility]24 [facility] Hemoglobin 9.1(L) 13.5 - 17.5 g/dL LAB HEMETOLOGY METHOD 12/18/2024 12:55 [facility] Hematocrit 29.5(L) 42.0 - 54.0 % LAB HEMETOLOGY METHOD 12/18/2024 12:55 PM [facility] MCV 104.6(H) 79.0 - 98.0 FL LAB HEMETOLOGY METHOD 12/18/2024 12:55 PM [facility] MCH 32.3(H) 27.0 - 32.0 pcg LAB HEMETOLOGY METHOD 12/18/2024 12:55 PM [facility] MCHC 30.8(L) 32.0 - 37.0 g/dL LAB HEMETOLOGY METHOD 12/18/2024 12:55 PM [facility] RDW 14.6 11.0 - 15.0 % LAB HEMETOLOGY METHOD 12/18/2024 12:55 PM [facility] Platelets 159 130 - 400 K/mcL LAB HEMETOLOGY METHOD 12/18/2024 12:55 PM [facility] MPV 10.6 7.0 - 11.0 FL LAB HEMETOLOGY METHOD 12/18/2024 12:55 PM [facility] NRBC 0.0 <1.0 % LAB HEMETOLOGY METHOD 12/18/2024 12:55 PM [facility] NRBC Absolute 0.00 <0.10 K/mcL LAB HEMETOLOGY METHOD 12/18/2024 12:55 [facility] Neutrophils Relative 35.7 % LAB HEMETOLOGY METHOD 12/18/2024 12:55 PM [facility] Lymphocytes Relative 52.3 % LAB HEMETOLOGY METHOD 12/18/2024 12:55 PM EDT [facility] Monocytes Relative 8.4 % LAB HEMETOLOGY METHOD 12/18/2024 12:55 PM EDT [facility] Eosinophils Relative 2.8 % LAB HEMETOLOGY METHOD 12/18/2024 12:55 PM EDT [facility] Basophils Relative 0.5 % LAB HEMETOLOGY METHOD 12/18/2024 12:55 PM EDT [facility] Immature Granulocytes Relative 0.3 % LAB HEMETOLOGY METHOD 12/18/2024 12:55 PM EDT [facility] Neutrophils Absolute 2.26 1.50 - 7.00 K/mcL LAB HEMETOLOGY METHOD 12/18/2024 12:55 PM EDT [facility] Lymphocytes Absolute 3.31 1.00 - 5.00 K/mcL LAB HEMETOLOGY METHOD 12/18/2024 12:55 PM EDT [facility] Monocytes Absolute 0.53 0.20 - 1.00 K/mcL LAB HEMETOLOGY METHOD 12/18/2024 12:55 PM EDT [facility] Eosinophils Absolute 0.18 0.00 - 0.50 K/mcL LAB HEMETOLOGY METHOD 12/18/2024 12:55 PM [facility] Basophils Absolute 0.03 0.00 - 0.20 K/mcL LAB HEMETOLOGY METHOD 12/18/2024 12:55 PM EDT [facility] Immature Granulocytes Absolute 0.02 0.00 - 0.03 K/mcL LAB HEMETOLOGY METHOD 12/18/2024 12:55 PM [facility] Blood Venous blood specimen / Unknown Venipuncture / Unknown 12/18/2024 10:00 AM EDT 12/18/2024 12:34 PM EDT us Marsha CISSE LAB BLOOD ORDERABLES Final Re sult [facility] [address] [place] [address], [place] [phone] * Erythropoietin (12/18/2024 10:00 AM EDT) Erythropoietin 15.3 2.6 - 18.5 mIU/mL 12/22/2024 2:49 PM EDT [facility] Comment: Test performed at [facility], [address], [place] [address] Myah Price MD, PhD - [employer] Blood Venous blood specimen / Unknown Venipuncture / Unknown 12/18/2024 10:00 AM EDT 12/18/2024 12:34 PM EDT Marsha CISSE LAB BLOOD ORDERABLES Final Re sult Performing Organization Address [facility] Co de Phone Number [facility] [address] [place] [address] * Iron and TIBC (12/18/2024 10:00 AM EDT) Iron 100 50 - 160 mcg/dL LAB CHEMISTRY METHOD 12/18/2024 4:57 PM EDT [facility] TIBC 328 250 - 450 mcg/dL LAB CHEMISTRY METHOD 12/18/2024 4:57 PM EDT [facility] Iron Saturation 30 20 - 50 % LAB CHEMISTRY METHOD 12/18/2024 4:57 PM EDT [facility] Blood Venous blood specimen / Unknown Venipuncture / Unknown 12/18/2024 10:00 AM EDT 12/18/2024 12:34 PM EDT Marsha CISSE LAB BLOOD ORDERABLES Final Re sult Performing Organization Address [facility]/ZIP Co de Phone Number [facility] [address] [place] [address], [place] [phone] * Immunofixation electrophoresis serum (12/18/2024 10:00 AM EDT) Immunofixation Result, Serum IgG [place] monoclonal immunoglobulins detected. LAB CHEMISTRY METHOD 12/19/2024 3:05 PM EDT [facility] Blood Venous blood specimen / Unknown Venipuncture / Unknown 12/18/2024 10:00 AM EDT 12/18/2024 12:33 PM EDT Marsha CISSE LAB BLOOD ORDERABLES Final Re sult [facility] [address] [place] [address], [place] [phone] * Immunoglobulins IgG, IgA, IgM (12/18/2024 10:00 AM EDT) [facility] Total IgG 1,250 549 - 1,584 mg/dL LAB CHEMISTRY METHOD 12/18/2024 4:57 PM EDT [facility] IgA 158 61 - 348 mg/dL LAB CHEMISTRY METHOD 12/18/2024 4:57 PM EDT [facility] IgM 35 23 - 259 mg/dL LAB CHEMISTRY METHOD 12/18/2024 4:57 PM EDT [facility] Blood Venous blood specimen / Unknown Venipuncture / Unknown 12/18/2024 10:00 AM EDT 12/18/2024 12:34 PM EDT Marsha CISSE LAB BLOOD ORDERABLES Final Re sult [facility] [address] [place] [address], [place] [phone] * Protein electrophoresis, serum (12/18/2024 10:00 AM EDT) [facility] Total Protein 7.3 6.0 - 8.0 g/dL LAB CHEMISTRY METHOD 12/22/2024 4:00 PM EDT [facility] Albumin, Serum 3.5 2.9 - 4.1 g/dL LAB CHEMISTRY METHOD 12/22/2024 4:00 PM [facility] Alpha 1 Globulin (g/dL) 0.2 0.1 - 0.5 g/dL LAB CHEMISTRY METHOD 12/22/2024 4:00 PM EDT [facility] Alpha 2 Globulin (g/dL) 1.3 0.7 - 1.5 g/dL LAB CHEMISTRY METHOD 12/22/2024 4:00 PM EDT [facility] Beta (g/dL) 1.0 0.7 - 1.5 g/dL LAB CHEMISTRY METHOD 12/22/2024 4:00 PM EDT [facility] Gamma Globulin (g/dL) 1.3 0.7 - 1.9 g/dL LAB CHEMISTRY METHOD 12/22/2024 4:00 PM [facility] PARAPROTEIN 0.3 g/dL LAB CHEMISTRY METHOD 12/22/2024 4:00 PM [facility] SPEP Interpretation Monoclonal gammopathy. Abnormal pattern with M-spike of gamma globulin mobility. Serum Immunofixation performed on this specimen demonstrated IgG [place] monoclonal protein. LAB CHEMISTRY METHOD 12/22/2024 4:00 PM [facility] Blood Venous blood specimen / Unknown Venipuncture / Unknown 12/18/2024 10:00 AM EDT 12/18/2024 12:33 PM EDT us Marsha CISSE LAB BLOOD ORDERABLES Final Re sult [facility] [address] [place] [address], * Protein, total (12/18/2024 10:00 AM EDT) Total Protein 7.3 6.0 - 8.0 g/dL LAB CHEMISTRY METHOD 12/18/2024 3:13 PM EDT [facility] Blood Venous blood specimen / Unknown Venipuncture / Unknown 12/18/2024 10:00 AM EDT 12/18/2024 12:33 PM EDT us Marsha CISSE LAB BLOOD ORDERABLES Final Re sult Performing Organization Address City/[facility]/ZIP Co de Phone Number [facility] [address] [place] [address], [place] [phone] * Ferritin (12/18/2024 10:00 AM EDT) [facility] Ferritin 318 26 - 388 ng/mL LAB CHEMISTRY METHOD 12/18/2024 4:57 PM EDT [facility] Blood Venous blood specimen / Unknown Venipuncture / Unknown 12/18/2024 10:00 AM EDT 12/18/2024 12:34 PM EDT us Marsha CISSE LAB BLOOD ORDERABLES Final Re sult Performing Organization Address [facility]/ZIP Co de Phone Number [facility] [address] [place] [address], [place] [phone] * (ABNORMAL) Basic metabolic panel (12/18/2024 10:00 AM EDT) [facility] Sodium 145 133 - 145 mmol/L LAB CHEMISTRY METHOD 12/18/2024 4:57 PM EDT [facility] Potassium 4.3 3.5 - 5.5 mmol/L LAB CHEMISTRY METHOD 12/18/2024 4:57 PM EDT [facility] Chloride 116(H) 96 - 110 mmol/L LAB CHEMISTRY METHOD 12/18/2024 4:57 PM EDT [facility] CO2 24 21 - 32 mmol/L LAB CHEMISTRY METHOD 12/18/2024 4:57 PM EDT [facility] Anion Gap 5 3 - 11 LAB CHEMISTRY METHOD 12/18/2024 4:57 [facility] Glucose 182(H) 70 - 100 mg/dL LAB CHEMISTRY METHOD 12/18/2024 4:57 PM T [facility] BUN 70(H) 5 - 25 mg/dL LAB CHEMISTRY METHOD 12/18/2024 4:57 PM EDT [facility] Creatinine 1.98(H) 0.70 - 1.30 mg/dL LAB CHEMISTRY METHOD 12/18/2024 4:57 [facility] eGFR 32(L) >=60 mL/min/1. 73m2 LAB CHEMISTRY METHOD 12/18/2024 4:57 PM T [facility] Comment:Calculation based on the Chronic Kidney Disease Epidemiology Collaboration (CKD-EPI) equation refit without adjustment for race. BUN/Creatinine Ratio 35.4 LAB CHEMISTRY METHOD 12/18/2024 4:57 PM [facility] Calcium 8.9 8.5 - 10.5 mg/dL LAB CHEMISTRY METHOD 12/18/2024 4:57 PM [facility] Blood Venous blood specimen / Unknown Venipuncture / Unknown 12/18/2024 10:00 AM EDT 12/18/2024 12:34 PM EDT us Marsha CISSE LAB BLOOD ORDERABLES Final Re sult [facility] [address] [place] [address], * Lipid panel with reflex to direct LDL (10/15/2024 8:43 AM EDT) Cholesterol 176 0 - 200 mg/dL LAB CHEMISTRY METHOD 10/15/2024 10:48 AM EDT [facility] Triglycerides 130 0 - 150 mg/dL LAB CHEMISTRY METHOD 10/15/2024 10:48 AM EDT [facility] HDL 63 >=40 mg/dL LAB CHEMISTRY METHOD 10/15/2024 10:48 AM EDT [facility] LDL Calculated 87 0 - 100 mg/dL LAB CHEMISTRY METHOD 10/15/2024 10:48 AM EDT [facility] VLDL Cholesterol Shola 26 mg/dL LAB CHEMISTRY METHOD 10/15/2024 10:48 AM EDT [facility] Non HDL Chol. (LDL+VLDL) 113 <145 mg/dL LAB CHEMISTRY METHOD 10/15/2024 10:48 AM EDT [facility] Chol/HDL Ratio 2.8 0.0 - 4.4 LAB CHEMISTRY METHOD 10/15/2024 10:48 AM EDT [facility] Blood Venous blood specimen / Unknown Venipuncture / Unknown 10/15/2024 8:43 AM EDT 10/15/2024 8:43 AM EDT us Andre Forman MD LAB BLOOD ORDERABLES Final Resul t Performing Organization Address City/[facility]/ZIP Co de Phone Number [facility] [address] [place] [address], [place] [phone] * (ABNORMAL) Hemoglobin A1c (10/15/2024 8:43 AM EDT) Hemoglobin A1C 6.5(H) <6.5 % LAB CHEMISTRY METHOD 10/15/2024 11:23 AM EDT [facility] Mean Bld Glu Estim. 140 mg/dL LAB CHEMISTRY METHOD 10/15/2024 11:23 AM EDT [facility] Blood Venous blood specimen / Unknown Venipuncture / Unknown 10/15/2024 8:43 AM EDT 10/15/2024 8:43 AM EDT us Andre Forman MD LAB BLOOD ORDERABLES Final Resul t [facility] [address] [place] [address], [place] [phone] * External Diabetic Retina Eye Exam Report (08/08/2024) Anatomical Region Laterality Modality Ultrasound us Provider [facility]G US PROCEDURES Final Result from Last 3 Months or Most Recently Relevant to Health Maintenance Insurance [employer] - [place] MEDICARE ADVANTAGE Care Teams Service Center Assistant Relationship Specialty Start Date End Date Andre Forman MD [address] [id number] PCP - General 10/10/23
--- OUTSIDE RECORDS SUMMARY | 2025-01-19 15:04 | XMS_ITS | Clinical Summary ---
Author Organization [facility] Address [address] [place] [id number] Care Team Providers Care Bulk Mail Technician Name Role Phone Andre Forman MD Primary [...] 80 11/12/2023 8:31 AM EDT Temperature 36.6 C (97.9 F) 11/12/2023 8:31 AM EDT Respiratory Rate - - Oxygen [...] 5 season) 2024 06/10/2021 Influenza Vaccine (#1) 2025 , 06/15/2016 Hepatitis B Vaccines Aged Out No long er eligible based on patient's age to complete this topic RSV Ped < 20 months Aged Out No longe r eligible based on patient's age to complete this topic Care Teams Bulk Mail Technician Relationship Specialty Start Date End Date Andre Forman MD PCP - General Internal Medicine 10/10/23
[2025-01-19 17:57] LABS: Anion Gap 15 (12-20); Blood Urea Nitrogen 70 mg/dL (9-16); Calcium 8.6 mg/dL (8.4-10.2); Carbon Dioxide 20 mmol/L (22-29); Chloride 115 mmol/L (96-108); Estimated Glomerular Filt Rate 34; Potassium 4.6 mmol/L (3.3-5.1); Sodium 145 mmol/L (135-145)
[2025-01-19 18:02] LABS: Hematocrit 28.7 % (42.0-52.0); Hemoglobin 9.1 g/dl (14.0-18.0); Mean Corpuscular HGB Conc 31.7 g/dl (31.0-36.0); Mean Corpuscular Hemoglobin 32.5 pg (27.0-33.0); Mean Corpuscular Volume 102.5 fL (80.0-98.0); NRBC Abs Auto 0.000 X10*3/uL (0.0-0.012); NRBC Pct Auto 0.0 /100WBC (0.0-0.2); Platelet Count 156 X10*3/uL (160-400); Red Blood Count 2.80 X10*6/uL (4.60-5.80); White Blood Count 6.9 X10*3/uL (4.8-10.8)
== END 2025-01-19 14:40 | disposition home or self-care (01) ==
LOC: HO.HKASLDS 14:39
PROVIDERS: Visit Provider Internal Medicine Hypertension Specialist
DX: N18.30 Chronic kidney disease, stage 3 unspecified (principal)
CPT/HCPCS: 36415; 80048; 85027

== ENCOUNTER 2025-01-21 08:35 | Outpatient (AMB) | payer MEDICARE, SELFPAY ==
[2025-01-21 08:39] VITALS: BP 110/60; PULSE 77; O2SAT 98; BMI 29.0
--- NOTE | 2025-01-21 08:39 | HO.NEPHOV_ITS ---
Vital Signs 01/21/25 08:39 Height 5 ft 8 in Weight 191 lb BMI 29.0 BP 110/60 Blood Pressure Location Rt brachial Position Sitting Pulse 77 Pulse Source Pulse Oximeter Pulse Oximetry (%) 98 Oxygen Delivery Method Room Air Intake Visit Reasons: 3mon follow-up w/labs-Conf Human Resources Office Manager Required: No Accompanied by: Spouse Allergies naproxen (NAPROXEN) Adverse Reaction (Mild, Verified 01/21/25 08:44) HALLUCINATIONS Medication List - Last Reconciled 01/21/25 by Ben Joe MD aspirin (Adult Low Dose Aspirin) 81 mg PO DAILY blood sugar diagnostic (Pelamis Wave Power Verio test strips) TEST ONCE DAILY cholecalciferol (vitamin D3) 25 mcg PO DAILY ferrous sulfate 325 mg PO DAILY glipizide 5 mg PO BID lancets (BaubleBaruch Delica Lancets) TEST ONCE DAILY metoprolol succinate ER 50 mg PO DAILY [id number] mcg (Centrum Silver Ultra Men's) 1 tab PO DAILY pioglitazone (Actos) 15 mg PO DAILY simvastatin 40 mg PO DAILY HPI Comments Details: [place] man with long standing DM and HTN 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 Lim for Anemia and MCGP - Monoclonal gammopathy of uncertain significance, IgG kappa and IgG lambda. 10/22/24 Here for follow up after more than a year No dyspnea. No nausea/vomiting ;NO urinary symptoms ;Meds reviewed 01/21/25 Overall doing well. Seen by c/o Edema; No dyspnea PFSH Medical History Obesity Hypertension 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, controlled Diabetes mellitus Family History Father Hx of diabetes mellitus Leukemia Brother Hx of diabetes mellitus Brother Hx of diabetes mellitus Social History Household Members: Spouse Housing: House Are you a primary live in caregiver to a significant other at home: No Do you presently have visiting nurse or other home services: Yes Alcohol intake: never Patient Tobacco Use Status: Former Tobacco user Tobacco use type: Cigarette e-Cigarette/Vaping Use: Never Used Second Hand Smoke Exposure: No service: No Current occupational status: retired Cognitive needs: No Hearing needs: No Vision needs: Yes (glasses ) Physical Exam Vital Signs: Last Vital Signs Pulse 77 01/21/25 08:39 BP 110/60 01/21/25 08:39 Pulse Ox 98 01/21/25 08:39 Oxygen Delivery Method Room Air 01/21/25 08:39 BMI result Body Mass Index 29.0 Const General: comfortable Nutritional Appearance: well nourished Orientation/consciousness: patient oriented x3 HEENT Head: No normal to inspection Mouth: moist mucous membranes Neck Neck: Yes supple and Yes no JVD Resp Auscultation: clear to auscultation bilaterally and no rales Cardio Jugular venous distension: no JVD Palpation: no palpable S3 and no palpable S4 Heart sounds: no rubs GI Palpation (GI): Soft to palpation and nontender Percussion: No Fluid wave present General: Yes no CVA tenderness Back/Spine/Pelvis Back: no CVA tenderness Skin General skin exam: no rashes or lesions noted Neuro General: patient oriented x3 Extrem General: No clubbing Right upper extremity: edema (1+) Results Reviewed Nephrology Results: Hgb, (14.0-18.0) 9.1 g/dl L 01/19/25 WBC, (4.8-10.8) 6.9 X10*3/uL 01/19/25 Plt Count, (160-400) 156 X10*3/uL L 01/19/25 Sodium, (135-145) 145 mmol/L 01/19/25 Potassium, (3.3-5.1) 4.6 mmol/L 01/19/25 Chloride, (96-108) 115 mmol/L H 01/19/25 Carbon Dioxide, (22-29) 20 mmol/L L 01/19/25 BUN, (9-16) 70 mg/dL H 01/19/25 Creatinine, (0.5-1.4) 1.90 mg/dL H 01/19/25 Calcium, (8.4-10.2) 8.6 mg/dL 01/19/25 PTH Intact, (8.7-77.1) 146.8 pg/mL H 10/22/24 Urine Protein, (Neg-Trace) 100 (2+) mg/dL H 10/22/24 Urine Creatinine 62.08 mg/dL 10/22/24 Assessment & Plan Assessment & Plan (1) Anemia of chronic disease: Code(s): D63.8 - Anemia in other chronic diseases classified elsewhere Category: Medical (2) CKD (chronic kidney disease) stage 3, GFR 30-59 ml/min: Code(s): N18.30 - Chronic kidney disease, stage 3 unspecified Category: Medical Plan CKD 3 B in a sitting of DM And HTN Renal function is in fact stable. Creatinine is 1.9 and was around 2.3 in Continue to avoid nephrotoxins including NSAIDS Increase PO fluid intake Maintain BP 130/80 Optimize blood sugar control -Goal A1C < 7% h/o Anemia with MCGP Follow up Hem/onc Follow up with Would benefit from EPOGEN Recheck HCT and Iron studies before next visit Mild edema Aysmptomatic Is it due to Actos Encouraged to stay on low salt diet and keep legs elevated whenever possible. Shall follow along No changes were made today Orders: Orders Basic Metabolic Panel 4 Months N18.30 - Chronic kidney disease, stage 3 unspecified Complete Blood Count no Diff 4 Months D63.8 - Anemia in other chronic diseases classified elsewhere, N18.30 - Chronic kidney disease, stage 3 unspecified IRON PROFILE 4 Months D63.8 - Anemia in other chronic diseases classified elsewhere, N18.30 - Chronic kidney disease, stage 3 unspecified Ferritin 4 Months D63.8 - Anemia in other chronic diseases classified elsewhere, N18.30 - Chronic kidney disease, stage 3 unspecified Coding Level of Care Code Est Pt Level 4 (84279) Diagnoses Anemia of chronic disease D63.8 CKD (chronic kidney disease) stage 3, GFR 30-59 ml/min N18.30
--- OUTSIDE RECORDS SUMMARY | 2025-01-21 08:47 | XMS_ITS | Clinical Summary ---
Author Organization [facility] Address [address] [place] [id number] Care Team Providers Care Dam Attendant Name Role Phone Andre Forman MD Primary [...] age to complete this topic Care Teams Dam Attendant Relationship Specialty Start Date End Date Andre Forman MD PCP - General Internal Medicine 10/10/23
--- OUTSIDE RECORDS SUMMARY | 2025-01-21 08:47 | XMS_ITS | Clinical Summary ---
Author Organization 175 [facility] Address [address] [place] [address] Phone Care Team Providers Care Road Monkey Name Role Phone Andre Forman MD Primary Care Provider [phone] Allergies Active Allergy Reactions Criticality Noted Date Comments Naproxen 09/24/2023 Medications aspirin 81 mg EC tablet Take 1 Tablet by mouth daily. Active cholecalciferol (VITAMIN D-3) 25 mcg (1,000 unit) capsule Take 1 Capsule by mouth daily. Active ONETOUCH ULTRASOFT LANCETS [facility] Check blood sugar twice a day. 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) (Primary Dx); Macrocytic anemia; Stage 3b chronic kidney disease ([facility] V24, [facility] V28) from Last 3 Months Immunizations Name Administration Dates Next Due Moderna SARS-CoV-2 COVID-19, mRNA, LNP-S, preservative free 06/10/2021 Medical History Medical History Date Comments MGUS (monoclonal gammopathy of unknown significance) DX:MGUS (monoclonal gammopat hy of unknown significance) Anemia DX:Anemia CKD (chronic kidney disease) DX: CKD (chronic kidney disease) Diabetes mellitus type 2, co ntrolled, with complications ([facility] V24, [facility] V28) DX:Diabetes mellitus type 2, controlled, with complications ([facility]) Hyperlipidemia DX:Hyperlipidemi a Social History Tobacco Use [...] 8:45 AM EDT Office Visit Internal Medicine [facility] 175 [facility] [address] [place] [id number] Andre Forman MD 175 [facility] [address] [place] [address] 06/22/2025 8:30 AM EST Office Visit [facility] Hematology Oncology [address] [place] [phone] Marsha Davidson PA [address] [place] [address] Health Maintenance Due Date Last Done Comments [...] Procedure Name Priority Date/Time Associated Diagnosis Comments [place] PROTEIN ELECTROPHORETIC FRACTIONATION & QUANTITATION SERUM Routine 12/18/2024 10:00 AM EDT Macrocytic anemia 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) Stage 3b chronic kidney disease ([facility] V24, [facility] V28) OH IMMUNOFIXATION ELECTROPHORESIS SERUM Routine 12/18/2024 10:00 AM EDT Macrocytic anemia 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) Stage 3b chronic kidney disease ([facility] V24, [facility] V28) PROTEIN, TOTAL Routine 12/18/2024 10:00 AM EDT Macrocytic anemia 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) Stage 3b chronic kidney disease ([facility] V24, [facility] V28) IMMUNOGLOBULINS IGG, IGA, IGM Routine 12/18/2024 10:00 AM EDT Macrocytic anemia 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) Stage 3b chronic kidney disease ([facility] V24, [facility] V28) IMMUNOFIXATION ELECTROPHORESIS Routine 12/18/2024 10:00 AM EDT Macrocytic anemia 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) Stage 3b chronic kidney disease ([facility] V24, [facility] V28) CBC WITH AUTO DIFFERENTIAL Routine 12/18/2024 10:00 AM EDT Macrocytic anemia 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) Stage 3b chronic kidney disease ([facility] V24, [facility] V28) FERRITIN Routine 12/18/2024 10:00 AM EDT Macrocytic anemia 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) Stage 3b chronic kidney disease ([facility] V24, [facility] V28) IRON AND TIBC Routine 12/18/2024 10:00 AM EDT Macrocytic anemia 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) Stage 3b chronic kidney disease ([facility] V24, [facility] V28) PROTEIN ELECTROPHORESIS, SERUM Routine 12/18/2024 10:00 AM EDT Macrocytic anemia 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) Stage 3b chronic kidney disease ([facility] V24, [facility] V28) KAPPA-LAMBDA QUANTITATIVE FREE LIGHT CHAINS Routine 12/18/2024 10:00 AM EDT Macrocytic anemia 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) Stage 3b chronic kidney disease ([facility] V24, [facility] V28) IMMUNOFIXATION ELECTROPHORESIS Routine 12/18/2024 10:00 AM EDT Macrocytic anemia 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) Stage 3b chronic kidney disease ([facility] V24, [facility] V28) ERYTHROPOIETIN Routine 12/18/2024 10:00 AM EDT Macrocytic anemia 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) Stage 3b chronic kidney disease ([facility] V24, [facility] V28) BASIC METABOLIC PANEL Routine 12/18/2024 10:00 AM EDT Macrocytic anemia 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) Stage 3b chronic kidney disease ([facility] V24, [facility] V28) CBC AND DIFFERENTIAL Routine 12/18/2024 10:00 AM EDT Macrocytic anemia 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) Stage 3b chronic kidney disease ([facility] V24, [facility] V28) HEMOGLOBIN A1C Routine 10/15/2024 8:43 AM EDT Primary hypertension Hypercholesterolemi a Stage 3 chronic kidney disease, unspecified whether stage 3a or 3b CKD ([facility] V24, [facility] V28) Diabetes mellitus type 1.5, managed as type 2 ([facility] V24, [facility] V28) LIPID PANEL WITH REFLEX TO DIRECT LDL Routine 10/15/2024 8:43 AM EDT Primary hypertension Hypercholesterolemi a Stage 3 chronic kidney disease, unspecified whether stage 3a or 3b CKD ([facility] V24, [facility] V28) Diabetes mellitus type 1.5, managed as type 2 ([facility] V24, [facility] V28) EXTERNAL DIABETIC RETINA EYE EXAM 08/08/2024 from Last 3 Months or Most Recently Relevant to Health Maintenance Results * Pathologist Review Immunofixation (12/18/2024 10:00 AM EDT) Pathologist Interpretation Reviewed by Jaylin Valladares MD 12/19/2024 3:05 PM EDT [facility] Blood Venous blood specimen / Unknown Venipuncture / Unknown 12/18/2024 10:00 AM EDT 12/18/2024 12:33 PM EDT Marsha CISSE LAB BLOOD ORDERABLES Final Re sult [facility] [address] [place] [address], [place] [phone] * PATHOLOGIST REVIEW PROTEIN ELECTROPHORESIS (12/18/2024 10:00 AM EDT) Pathologist Interpretation 12/22/2024 3:59 PM EDT [facility] Blood Venous blood specimen / Unknown Venipuncture / Unknown 12/18/2024 10:00 AM EDT 12/18/2024 12:33 PM EDT Marsha CISSE LAB BLOOD ORDERABLES Final Re sult [facility] [address] [place] [address], [place] [phone] * (ABNORMAL) [place]-lambda free light chains, quantitative (12/18/2024 10:00 AM EDT) [place] Free Light Chain 6.98(H) 0.33 - 1.94 mg/dL 12/22/2024 12:28 PM EDT [facility] Lambda Free Light Chain 3.77(H) 0.57 - 2.63 mg/dL 12/22/2024 12:28 PM EDT [facility] [place]/Lambda FLC Ratio 1.85(H) 0.26 - 1.65 12/22/2024 12:28 PM EDT [facility] Comment: Test performed at [facility], [address], [place] [address] Myah Price MD, PhD - [employer]yer Blood Venous blood specimen / Unknown Venipuncture / Unknown 12/18/2024 10:00 AM EDT 12/18/2024 12:34 PM EDT us Marsha CISSE LAB BLOOD ORDERABLES Final Re sult [facility] [address] [place] [address] * (ABNORMAL) CBC auto differential (12/18/2024 10:00 AM EDT) WBC 6.3 4.8 - 10.8 K/[facility] HEMETOLOGY METHOD 12/18/2024 12:55 PM EDT [facility] RBC 2.80(L) 4.50 - 5.50 M/mcL LAB HEMETOLOGY METHOD 12/[facility] Hemoglobin 9.1(L) 13.5 - 17.5 g/dL LAB HEMETOLOGY METHOD 12/18[facility]2024 [facility] Hematocrit 29.5(L) 42.0 - 54.0 % LAB HEMETOLOGY METHOD 12/18/2024 12:55 PM [facility] MCV 104.6(H) 79.0 - 98.0 FL LAB HEMETOLOGY METHOD 12/18/2024 12:55 PM [facility] MCH 32.3(H) 27.0 - 32.0 pcg LAB HEMETOLOGY METHOD 12/18/2024 12:55 PM [facility] MCHC 30.8(L) 32.0 - 37.0 g/dL LAB HEMETOLOGY METHOD 12/18/2024 12:55 PM [facility] RDW 14.6 11.0 - 15.0 % LAB HEMETOLOGY METHOD 12/18/2024 12:55 PM [facility] Platelets 159 130 - 400 K/mcL LAB HEMETOLOGY METHOD 12/18/2024 12:55 PM [facility] MPV 10.6 7.0 - 11.0 FL LAB HEMETOLOGY METHOD 12/18/2024 12:55 PM [facility] NRBC 0.0 <1.0 % LAB HEMETOLOGY METHOD 12/18/2024 12:55 PM [facility] NRBC Absolute 0.00 <0.10 K/mcL LAB HEMETOLOGY METHOD 12/18/2024 12:[facility] Neutrophils Relative 35.7 % LAB HEMETOLOGY METHOD 12/18/2024 12:55 PM [facility] Lymphocytes Relative 52.3 % LAB HEMETOLOGY METHOD 12/18/2024 12:55 PM EDT [facility] Monocytes Relative 8.4 % LAB HEMETOLOGY METHOD 12/18/2024 12:55 PM EDT [facility] Eosinophils Relative 2.8 % LAB HEMETOLOGY METHOD 12/18/2024 12:55 PM EDT [facility] Basophils Relative 0.5 % LAB HEMETOLOGY METHOD 12/18/2024 12:55 PM EDT [facility] Immature Granulocytes Relative 0.3 % LAB HEMETOLOGY METHOD 12/18/2024 12:55 PM EDT [facility] Neutrophils Absolute 2.26 1.50 - 7.00 K/mcL LAB HEMETOLOGY METHOD 12/18/2024 12:55 PM EDT [facility] Lymphocytes Absolute 3.31 1.00 - 5.00 K/mcL LAB HEMETOLOGY METHOD 12/18/2024 12:55 PM EDT [facility] Monocytes Absolute 0.53 0.20 - 1.00 K/mcL LAB HEMETOLOGY METHOD 12/18/2024 12:55 PM EDT [facility] Eosinophils Absolute 0.18 0.00 - 0.50 K/mcL LAB HEMETOLOGY METHOD 12/18/2024 12:55 PM [facility] Basophils Absolute 0.03 0.00 - 0.20 K/mcL LAB HEMETOLOGY METHOD 12/18/2024 12:55 PM EDT [facility] Immature Granulocytes Absolute 0.02 0.00 - 0.03 K/mcL LAB HEMETOLOGY METHOD 12/18/2024 12:55 PM [facility] Blood Venous blood specimen / Unknown Venipuncture / Unknown 12/18/2024 10:00 AM EDT 12/18/2024 12:34 PM EDT us Marsha CISSE LAB BLOOD ORDERABLES Final Re sult [facility] [address] [place] [address], [place] [phone] * Erythropoietin (12/18/2024 10:00 AM EDT) Erythropoietin 15.3 2.6 - 18.5 mIU/mL 12/22/2024 2:49 PM EDT [facility] Comment: Test performed at [facility], [address], [place] [address] Myah Price MD, PhD - [employer] Sawyer Blood Venous blood specimen / Unknown Venipuncture / Unknown 12/18/2024 10:00 AM EDT 12/18/2024 12:34 PM EDT Marsha CISSE LAB BLOOD ORDERABLES Final Re sult Performing Organization Address [facility] Co de Phone Number [facility] [address] [place] [address] * Iron and TIBC (12/18/2024 10:00 AM EDT) Iron 100 50 - 160 mcg/dL LAB CHEMISTRY METHOD 12/18/2024 4:57 PM EDT [facility] TIBC 328 250 - 450 mcg/dL LAB CHEMISTRY METHOD 12/18/2024 4:57 PM EDT [facility] Iron Saturation 30 20 - 50 % LAB CHEMISTRY METHOD 12/18/2024 4:57 PM EDT [facility] Blood Venous blood specimen / Unknown Venipuncture / Unknown 12/18/2024 10:00 AM EDT 12/18/2024 12:34 PM EDT Marsha CISSE LAB BLOOD ORDERABLES Final Re sult Performing Organization Address [facility]/ZIP Co de Phone Number [facility] [address] [place] [address], [place] [phone] * Immunofixation electrophoresis serum (12/18/2024 10:00 AM EDT) Immunofixation Result, Serum IgG [place] monoclonal immunoglobulins detected. LAB CHEMISTRY METHOD 12/19/2024 3:05 PM EDT [facility] Blood Venous blood specimen / Unknown Venipuncture / Unknown 12/18/2024 10:00 AM EDT 12/18/2024 12:33 PM EDT Marsha CISSE LAB BLOOD ORDERABLES Final Re sult [facility] [address] [place] [address], [place] [phone] * Immunoglobulins IgG, IgA, IgM (12/18/2024 10:00 AM EDT) [facility] Total IgG 1,250 549 - 1,584 mg/dL LAB CHEMISTRY METHOD 12/18/2024 4:57 PM EDT [facility] IgA 158 61 - 348 mg/dL LAB CHEMISTRY METHOD 12/18/2024 4:57 PM EDT [facility] IgM 35 23 - 259 mg/dL LAB CHEMISTRY METHOD 12/18/2024 4:57 PM EDT [facility] Blood Venous blood specimen / Unknown Venipuncture / Unknown 12/18/2024 10:00 AM EDT 12/18/2024 12:34 PM EDT Marsha CISSE LAB BLOOD ORDERABLES Final Re sult [facility] [address] [place] [address], [place] [phone] * Protein electrophoresis, serum (12/18/2024 10:00 AM EDT) [facility] Total Protein 7.3 6.0 - 8.0 g/dL LAB CHEMISTRY METHOD 12/22/2024 4:00 PM EDT [facility] Albumin, Serum 3.5 2.9 - 4.1 g/dL LAB CHEMISTRY METHOD 12/22/2024 4:00 PM [facility] Alpha 1 Globulin (g/dL) 0.2 0.1 - 0.5 g/dL LAB CHEMISTRY METHOD 12/22/2024 4:00 PM EDT [facility] Alpha 2 Globulin (g/dL) 1.3 0.7 - 1.5 g/dL LAB CHEMISTRY METHOD 12/22/2024 4:00 PM EDT [facility] Beta (g/dL) 1.0 0.7 - 1.5 g/dL LAB CHEMISTRY METHOD 12/22/2024 4:00 PM EDT [facility] Gamma Globulin (g/dL) 1.3 0.7 - 1.9 g/dL LAB CHEMISTRY METHOD 12/22/2024 4:00 PM [facility] PARAPROTEIN 0.3 g/dL LAB CHEMISTRY METHOD 12/22/2024 4:00 PM [facility] SPEP Interpretation Monoclonal gammopathy. Abnormal pattern with M-spike of gamma globulin mobility. Serum Immunofixation performed on this specimen demonstrated IgG [place] monoclonal protein. LAB CHEMISTRY METHOD 12/22/2024 4:00 PM [facility] Blood Venous blood specimen / Unknown Venipuncture / Unknown 12/18/2024 10:00 AM EDT 12/18/2024 12:33 PM EDT us Marsha CISSE LAB BLOOD ORDERABLES Final Re sult [facility] [address] [place] [address], * Protein, total (12/18/2024 10:00 AM EDT) Total Protein 7.3 6.0 - 8.0 g/dL LAB CHEMISTRY METHOD 12/18/2024 3:13 PM EDT [facility] Blood Venous blood specimen / Unknown Venipuncture / Unknown 12/18/2024 10:00 AM EDT 12/18/2024 12:33 PM EDT us Marsha CISSE LAB BLOOD ORDERABLES Final Re sult Performing Organization Address City/[facility]/ZIP Co de Phone Number [facility] [address] [place] [address], [place] [phone] * Ferritin (12/18/2024 10:00 AM EDT) [facility] Ferritin 318 26 - 388 ng/mL LAB CHEMISTRY METHOD 12/18/2024 4:57 PM EDT [facility] Blood Venous blood specimen / Unknown Venipuncture / Unknown 12/18/2024 10:00 AM EDT 12/18/2024 12:34 PM EDT us Marsha CISSE LAB BLOOD ORDERABLES Final Re sult Performing Organization Address [facility]/ZIP Co de Phone Number [facility] [address] [place] [address], [place] [phone] * (ABNORMAL) Basic metabolic panel (12/18/2024 10:00 AM EDT) [facility] Sodium 145 133 - 145 mmol/L LAB CHEMISTRY METHOD 12/18/2024 4:57 PM EDT [facility] Potassium 4.3 3.5 - 5.5 mmol/L LAB CHEMISTRY METHOD 12/18/2024 4:57 PM EDT [facility] Chloride 116(H) 96 - 110 mmol/L LAB CHEMISTRY METHOD 12/18/2024 4:57 PM EDT [facility] CO2 24 21 - 32 mmol/L LAB CHEMISTRY METHOD 12/18/2024 4:57 PM EDT [facility] Anion Gap 5 3 - 11 LAB CHEMISTRY METHOD 12/18[facility]2024 [facility] Glucose 182(H) 70 - 100 mg/dL LAB CHEMISTRY METHOD 12/18/2024 4:57 PM T [facility] BUN 70(H) 5 - 25 mg/dL LAB CHEMISTRY METHOD 12/18/2024 4:57 PM EDT [facility] Creatinine 1.98(H) 0.70 - 1.30 mg/dL LAB CHEMISTRY METHOD 12/18/2024 4:[facility] eGFR 32(L) >=60 mL/min/1. 73m2 LAB CHEMISTRY METHOD 12/18/2024 4:57 PM T [facility] Comment:Calculation based on the Chronic Kidney Disease Epidemiology Collaboration (CKD-EPI) equation refit without adjustment for race. BUN/Creatinine Ratio 35.4 LAB CHEMISTRY METHOD 12/18/2024 4:57 PM [facility] Calcium 8.9 8.5 - 10.5 mg/dL LAB CHEMISTRY METHOD 12/18/2024 4:57 PM [facility] Blood Venous blood specimen / Unknown Venipuncture / Unknown 12/18/2024 10:00 AM EDT 12/18/2024 12:34 PM EDT us Marsha CISSE LAB BLOOD ORDERABLES Final Re sult [facility] [address] [place] [address], * Lipid panel with reflex to direct LDL (10/15/2024 8:43 AM EDT) Cholesterol 176 0 - 200 mg/dL LAB CHEMISTRY METHOD 10/15/2024 10:48 AM EDT [facility] Triglycerides 130 0 - 150 mg/dL LAB CHEMISTRY METHOD 10/15/2024 10:48 AM EDT [facility] HDL 63 >=40 mg/dL LAB CHEMISTRY METHOD 10/15/2024 10:48 AM EDT [facility] LDL Calculated 87 0 - 100 mg/dL LAB CHEMISTRY METHOD 10/15/2024 10:48 AM EDT [facility] VLDL Cholesterol Shola 26 mg/dL LAB CHEMISTRY METHOD 10/15/2024 10:48 AM EDT [facility] Non HDL Chol. (LDL+VLDL) 113 <145 mg/dL LAB CHEMISTRY METHOD 10/15/2024 10:48 AM EDT [facility] Chol/HDL Ratio 2.8 0.0 - 4.4 LAB CHEMISTRY METHOD 10/15/2024 10:48 AM EDT [facility] Blood Venous blood specimen / Unknown Venipuncture / Unknown 10/15/2024 8:43 AM EDT 10/15/2024 8:43 AM EDT us Andre Forman MD LAB BLOOD ORDERABLES Final Resul t Performing Organization Address City/[facility]/ZIP Co de Phone Number [facility] [address] [place] [address], [place] [phone] * (ABNORMAL) Hemoglobin A1c (10/15/2024 8:43 AM EDT) Hemoglobin A1C 6.5(H) <6.5 % LAB CHEMISTRY METHOD 10/15/2024 11:23 AM EDT [facility] Mean Bld Glu Estim. 140 mg/dL LAB CHEMISTRY METHOD 10/15/2024 11:23 AM EDT [facility] Blood Venous blood specimen / Unknown Venipuncture / Unknown 10/15/2024 8:43 AM EDT 10/15/2024 8:43 AM EDT us Andre Forman MD LAB BLOOD ORDERABLES Final Resul t [facility] [address] [place] [address], [place] [phone] * External Diabetic Retina Eye Exam Report (08/08/2024) Anatomical Region Laterality Modality Ultrasound us Provider [facility] US PROCEDURES Final Result from Last 3 Months or Most Recently Relevant to Health Maintenance Insurance [employer] - [place] MEDICARE ADVANTAGE Care Teams Road Monkey Relationship Specialty Start Date End Date Andre Forman MD [address] [address] PCP - General 10/10/23
--- OUTSIDE RECORDS SUMMARY | 2025-01-21 08:47 | XMS_ITS | Clinical Summary ---
Author Organization [facility] Address [address] [place] [address] Phone Care Team Providers Care Stem Roller Or Crusher Operator Name Role Phone Pee Escobedo MD Primary Care Provider [phone] Allergies Active Allergy Reactions Criticality Noted Date [...] patient's age to complete this topic Insurance [address] [place] [address] [facility] Care Teams Stem Roller Or Crusher Operator Relationship Specialty Start Date End Date Pee Escobedo MD [address] [place] [address] PCP - General Internal Medicine 08/25/20
== END 2025-01-21 08:58 | disposition home or self-care (01) ==
LOC: HO.HKAS 08:35
PROVIDERS: Visit Provider Internal Medicine Hypertension Specialist
DX: N18.30 Chronic kidney disease, stage 3 unspecified (principal); D63.8 Anemia in other chronic diseases classified elsewhere
CPT/HCPCS: 99214

== ENCOUNTER → 2025-01-21 08:35 | Outpatient (BNVA) | payer MEDICARE, SELFPAY | PROVIDERS: Visit Provider Internal Medicine Hypertension Specialist | DX: N18.30 Chronic kidney disease, stage 3 unspecified (principal); D63.8 Anemia in other chronic diseases classified elsewhere | CPT/HCPCS: 99212 ==

== ENCOUNTER 2025-05-14 10:22 | Outpatient (REF) | payer MEDICARE, SELFPAY ==
--- OUTSIDE RECORDS SUMMARY | 2025-05-14 12:38 | XMS_ITS | Clinical Summary ---
Author Organization [facility] Address [address] [place] [address] Phone Care Team Providers Care Tow Driver Name Role Phone Pee Escobedo MD Primary Care Provider [phone] Allergies Active Allergy Reactions Criticality Noted Date [...] 3 - PCV) 06/15/2017 06/15/2016, 11/06/2013 Diabetes: Ophthalmology Exam 10/09/2024 Diabetes: Pedal Pulse Checked 10/09/2024 Diabetes: Sensory Foot Exam 10/09/2024 Diabetes: Visual Foot Exam 10/09/2024 Diabetes: Hemoglobin A1C 01/15/2025 025, 09/25/2023 Pneumococcal Vaccine: Peds ( 0 to 5 Years) and At-Risk Patients (6 to 49 Years) Discontinued 06/15/2016, 11/06/2013 Hepatitis B Vaccine Aged Out No longe r eligible based on patient's age to complete this topic [place] [address] [address] [place] [address] [place] [address] Care Teams Tow Driver Relationship Specialty Start Date End Date Pee Escobedo MD [address] [place] [address] PCP - General Internal Medicine 08/25/20
--- OUTSIDE RECORDS SUMMARY | 2025-05-14 12:38 | XMS_ITS | Clinical Summary ---
Author Organization 175 [facility] Address [address] [place] [address] Phone Care Team Providers Care Test Department Helper Name Role Phone Andre Forman MD Primary Care Provider [phone] Allergies Active Allergy Reactions Criticality Noted Date Comments Naproxen 09/24/2023 Medications aspirin 81 mg EC tablet Take 1 Tablet by mouth daily. Active cholecalcifero l (VITAMIN D-3) 25 mcg (1,000 unit) capsule Take 1 Capsule by mouth daily. Active ONETOUCH ULTRASOFT LANCETS [facility] Check blood sugar twice a day. 4 Active multivitamin with minerals tablet Take 1 Tablet by mouth daily. Active ferrous sulfate 325 mg (65 mg elemental iron) tablet TAKE 1 TABLET BY MOUTH EVERY DAY 90 tablet 1 5 Active OneTouch Ultra Test test strip CHECK BLOOD SUGAR ONCE A DAY 100 strip 5 5 Active glipiZIDE (GLUCOTROL) 5 mg tablet TAKE 1 TABLET BY MOUTH TWICE A DAY BEFORE MEALS 180 tablet 1 5 Active simvastatin (ZOCOR) 40 mg tablet TAKE 1 TABLET BY MOUTH EVERYDAY AT BEDTIME 90 tablet 1 5 Active pioglitazone (ACTOS) 15 mg tablet TAKE 1 TABLET (15 MG TOTAL) BY MOUTH ONE TIME EACH DAY. 90 tablet 1 5 Active metoprolol succinate (TOPROL-XL) 50 mg 24 hr tablet TAKE 1 TABLET BY MOUTH EVERY DAY DO NOT CRUSH OR CHEW 90 tablet 1 5 Active metoprolol succinate (TOPROL-XL) 50 mg 24 hr tablet TAKE 1 TABLET BY MOUTH 1 TIME EACH DAY. DO NOT CRUSH OR CHEW. 90 tablet 1 025 Discontinued Active Problems Problem Noted Date Diagnosed Date Nonallopathic lesion of sacral region 09/06/2015 Sprain of sacroiliac ligament 09/06/2015 Encounters Date Type Department Care Team Description 04/06/2025 8:45 AM EDT Office Visit Internal Medicine - [address] [place] [address] Andre Forman MD Primary hypertension (Primary Dx); Stage 3 chronic kidney disease, unspecified whether stage 3a or 3b CKD ([facility] V24, [facility] V28); Hypercholesterolemia; Diabetes mellitus type 1.5, managed as type 2 ([facility] V24, [facility] V28) from Last 3 Months Immunizations Immunization Administration Dates Next Due Moderna SARS-CoV-2 COVID-19, mRNA, LNP-S, preservative free 06/10/2021 Medical History Medical History Date Comments MGUS (monoclonal gammopathy of unknown significance) DX:MGUS (monoclonal gammopat hy of unknown significance) Anemia DX:Anemia CKD (chronic kidney disease) DX: CKD (chronic kidney disease) Diabetes mellitus type 2, co ntrolled, with complications ([facility] V24, [facility] V28) DX:Diabetes mellitus type 2, controlled, with complications ([facility]) Hyperlipidemia DX:Hyperlipidemi a Social History Tobacco [...] Sign Reading Time Taken Comments Blood Pressure 148/80 04/06/2025 9:01 AM EDT Pulse 75 04/06/2025 9:01 AM EDT Temperature 36.4 C (97.6 F) 04/06/2025 9:01 AM EDT Respiratory Rate - - Oxygen Saturation 96% 04/06/2025 9:01 AM EDT Inhaled Oxygen Concentration - - Weight 83.4 kg (183 lb 12.8 oz) 04/06/2025 9:01 AM EDT Height 172.7 cm (5' 8 ) 04/06/2025 9:01 AM EDT Body Mass Index 27.95 04/06/2025 9:01 AM EDT Plan of Treatment Upcoming Encounters Date Type Department Care Team (Late st Contact Info) Description 06/22/2025 8:30 AM EST Office Visit [facility] Hematology Oncology [address] [place] [phone] Marsha Davidson PA [address] [place] [address] 10/07/2025 8:15 AM EDT Office Visit Internal Medicine - [place] 175 [facility] [address] [place] [phone] Andre Forman MD 175 [facility] [address] [place] [address] Health Maintenance Due Date Last Done Comments Diabetes: Annual Foot Exam 1950 DTaP,Tdap,and Td Vaccines (1 - Tdap) 1957 Zoster Vaccines (1 of 2) 1957 RSV Immunization Adult Patients (1 - 1-dose 75+ series) 2013 Pneumococcal Vaccine: 50+ Years (2 of 2 - PCV) 06/15/2017 06/15/2016, 11/06/2013 Social Influencers of Health Screening 05/10/2022 COVID-19 Vaccine (4 - 2024-2 6 season) 2025 06/10/2021, 09/09/2020, 08/12/2020 Influenza Vaccine (#1) 2025 , 06/15/2016 Diabetes: Blood Sugar Contro l Test (HGBA1C) 04/17/2025 10/15/2024, 09/25/2023 Diabetes: Annual Retina Eye Exam 08/08/2025 08/08/2024 Hypertension/CHF/CAD Annual BMP Blood Test 12/18/2025 12/18/2024, 10/15/2024, 09/25/2023 Falls Risk Assessment 04/06/2026 04/06/2025 Medicare Annual Wellness Visit 04/06/2026 04/06/2025 Cholesterol Screening (Lipid Panel) 10/15/2029 10/15/2024, 09/25/2023 Depression Screening Completed 04/06/2025 HIB Vaccines Aged Out No longer eligi [...] Procedure Name Priority Date/Time Associated Diagnosis Comments BASIC METABOLIC PANEL Routine 12/18/2024 10:00 AM EDT Macrocytic anemia 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) Stage 3b chronic kidney disease ([facility]/HCC V24, CMS/HCC V28) HEMOGLOBIN A1C Routine 10/15/2024 8:43 AM EDT Primary hypertension Hypercholesterolemia Stage 3 chronic kidney disease, unspecified whether stage 3a or 3b CKD (CMS/HCC V24, CMS/HCC V28) Diabetes mellitus type 1.5, managed as type 2 (CMS/HCC V24, CMS/HCC V28) LIPID PANEL WITH REFLEX TO DIRECT LDL Routine 10/15/2024 8:43 AM EDT Primary hypertension Hypercholesterolemia Stage 3 chronic kidney disease, unspecified whether stage 3a or 3b CKD (CMS/HCC V24, CMS/HCC V28) Diabetes mellitus type 1.5, managed as type 2 (CMS/HCC V24, CMS/HCC V28) EXTERNAL DIABETIC RETINA EYE EXAM 08/08/2024 from Last 3 Months or Most Recently Relevant to Health Maintenance Results * (ABNORMAL) Basic metabolic panel (12/18/2024 10:00 AM EDT) Sodium 145 133 - 145 mmol/L LAB CHEMISTRY METHOD 12/18/2024 4:57 PM [facility] Potassium 4.3 3.5 - 5.5 mmol/L LAB CHEMISTRY METHOD 12/18/2024 4:57 PM [facility] Chloride 116(H) 96 - 110 mmol/L LAB CHEMISTRY METHOD 12/18/2024 4:57 PM [facility] CO2 24 21 - 32 mmol/L LAB CHEMISTRY METHOD 12/18/2024 4:57 PM [facility] Anion Gap 5 3 - 11 LAB CHEMISTRY METHOD 12/18/2024 4:57 PM [facility] Glucose 182(H) 70 - 100 mg/dL LAB CHEMISTRY METHOD 12/18/2024 4:57 PM [facility] BUN 70(H) 5 - 25 mg/dL LAB CHEMISTRY METHOD 12/18/2024 4:57 PM [facility] Creatinine 1.98(H) 0.70 - 1.30 mg/dL LAB CHEMISTRY METHOD 12/18/2024 4:57 PM [facility] eGFR 32(L) >=60 mL/min/1. 73m2 LAB CHEMISTRY METHOD 12/18/2024 4:57 PM [facility] Comment:Calculation based on the Chronic Kidney Disease Epidemiology Collaboration (CKD-EPI) equation refit without adjustment for race. BUN/Creatinine Ratio 35.4 LAB CHEMISTRY METHOD 12/18/2024 4:57 PM [facility] Calcium 8.9 8.5 - 10.5 mg/dL LAB CHEMISTRY METHOD 12/18/2024 4:57 PM [facility] Blood Venous blood specimen / Unknown Venipuncture / Unknown 12/18/2024 10:00 AM EDT 12/18/2024 12:34 PM EDT us Marsha CISSE LAB BLOOD ORDERABLES Final Re sult [facility] [address] [place] [address], [place] [phone] * Lipid panel with reflex to direct LDL (10/15/2024 8:43 AM EDT) Cholesterol 176 0 - 200 mg/dL LAB CHEMISTRY METHOD 10/15/2024 10:48 AM EDT [facility] Triglycerides 130 0 - 150 mg/dL LAB CHEMISTRY METHOD 10/15/2024 10:48 AM EDT [facility] HDL 63 >=40 mg/dL LAB CHEMISTRY METHOD 10/15/2024 10:48 AM EDT [facility] LDL Calculated 87 0 - 100 mg/dL LAB CHEMISTRY METHOD 10/15/2024 10:48 AM EDT [facility] VLDL Cholesterol Shola 26 mg/dL LAB CHEMISTRY METHOD 10/15/2024 10:48 AM EDT [facility] Non HDL Chol. (LDL+VLDL) 113 <145 mg/dL LAB CHEMISTRY METHOD 10/15/2024 10:48 AM EDT [facility] Chol/HDL Ratio 2.8 0.0 - 4.4 LAB CHEMISTRY METHOD 10/15/2024 10:48 AM EDT [facility] Blood Venous blood specimen / Unknown Venipuncture / Unknown 10/15/2024 8:43 AM EDT 10/15/2024 8:43 AM EDT us Andre Forman MD LAB BLOOD ORDERABLES Final Resul t Performing Organization Address [facility]/ZIP Co de Phone Number [facility] [address] [place] [address], [place] [phone] * (ABNORMAL) Hemoglobin A1c (10/15/2024 8:43 AM EDT) Hemoglobin A1C 6.5(H) <6.5 % LAB CHEMISTRY METHOD 10/15/2024 11:23 AM EDT [facility] Mean Bld Glu Estim. 140 mg/dL LAB CHEMISTRY METHOD 10/15/2024 11:23 AM EDT [facility] Blood Venous blood specimen / Unknown Venipuncture / Unknown 10/15/2024 8:43 AM EDT 10/15/2024 8:43 AM EDT us Andre Forman MD LAB BLOOD ORDERABLES Final Resul t [facility] [address] [place] [address], [place] [phone] * External Diabetic Retina Eye Exam Report (08/08/2024) Anatomical Region Laterality Modality Ultrasound us Provider [facility] IMG US PROCEDURES Final Result from Last 3 Months or Most Recently Relevant to Health Maintenance Insurance [employer] - [place] MEDICARE ADVANTAGE Care Teams Test Department Helper Relationship Specialty Start Date End Date Andre Forman MD [address] [address] PCP - General 10/10/23
--- OUTSIDE RECORDS SUMMARY | 2025-05-14 12:38 | XMS_ITS | Clinical Summary ---
Author Organization [facility] Prior to 11/08/24 Address [address] [place] [address] Care Team Providers Care Director Product Safety Name Role Phone Andre Forman MD Primary [...] 06/15/2017 06/15/2016, 11/06/2013 COVID-19 Vaccine (2 - 2024-2 6 season) 2025 06/10/2021 Influenza Vaccine (#1) 2025 , 06/15/2016 Hepatitis B Vaccines Aged Out No long er eligible based on patient's age to complete this topic RSV Ped < 20 months Aged Out No longe r eligible based on patient's age to complete this topic Care Teams Director Product Safety Relationship Specialty Start Date End Date Andre Forman MD PCP - General Internal Medicine 10/10/23
[2025-05-14 13:43] LABS: Hematocrit 29.3 % (42.0-52.0); Hemoglobin 9.3 g/dl (14.0-18.0); Mean Corpuscular HGB Conc 31.7 g/dl (31.0-36.0); Mean Corpuscular Hemoglobin 33.3 pg (27.0-33.0); Mean Corpuscular Volume 105.0 fL (80.0-98.0); NRBC Abs Auto 0.000 X10*3/uL (0.0-0.012); NRBC Pct Auto 0.0 /100WBC (0.0-0.2); Platelet Count 170 X10*3/uL (160-400); Red Blood Count 2.79 X10*6/uL (4.60-5.80); White Blood Count 7.7 X10*3/uL (4.8-10.8)
[2025-05-14 14:19] LABS: Anion Gap 12 (12-20); Blood Urea Nitrogen 67 mg/dL (9-16); Calcium 9.1 mg/dL (8.4-10.2); Carbon Dioxide 22 mmol/L (22-29); Chloride 115 mmol/L (96-108); Estimated Glomerular Filt Rate 32; Iron 102 mcg/dL (45-160); Percent Iron Saturation 38 % (15-50); Potassium 4.9 mmol/L (3.3-5.1); Sodium 144 mmol/L (135-145); Total Iron Binding Capacity 272 mcg/dL (228-428); Unsaturated Iron Binding 170 ug/dL
[2025-05-14 14:37] LABS: Ferritin 370 ng/mL (20-250)
== END 2025-05-14 10:23 | disposition home or self-care (01) ==
LOC: HO.HKASLDS 10:22
PROVIDERS: PCP Internal Medicine; Visit Provider Internal Medicine Hypertension Specialist
DX: N18.30 Chronic kidney disease, stage 3 unspecified (principal); D63.8 Anemia in other chronic diseases classified elsewhere
CPT/HCPCS: 36415; 80048; 82728; 83540; 85027

== ENCOUNTER 2025-05-20 09:04 | Outpatient (AMB) | payer MEDICARE, SELFPAY ==
--- NOTE | 2025-05-20 09:06 | HO.NEPHOV ---
Vital Signs 05/20/25 09:07 05/20/25 09:17 Height 5 ft 8 in Weight 190 lb BMI 28.9 BP 156/60 H 130/70 Blood Pressure Location Rt brachial Lt brachial Position Sitting Sitting Intake Visit Reasons: 4mon f/u w/labs Cloth Beamer Required: No Accompanied by: Spouse Allergies naproxen (NAPROXEN) Adverse Reaction (Mild, Verified 05/20/25 09:09) HALLUCINATIONS Medication List - Last Reconciled 05/20/25 by Ben Joe MD aspirin (Adult Low Dose Aspirin) 81 mg PO DAILY blood sugar diagnostic ([employer] test strips) TEST ONCE DAILY cholecalciferol (vitamin D3) 25 mcg PO DAILY ferrous sulfate 325 mg PO DAILY glipizide 5 mg PO BID lancets ([employer] Delica Lancets) TEST ONCE DAILY metoprolol succinate ER 50 mg PO DAILY [id number] mcg (Centrum Silver Ultra Men's) 1 tab PO DAILY pioglitazone (Actos) 15 mg PO DAILY simvastatin 40 mg PO DAILY HPI Comments Details: [place] man with long standing DM and HTN 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 Lim for Anemia and MCGP - Monoclonal gammopathy of uncertain significance, IgG kappa and IgG lambda. 10/22/24 Here for follow up after more than a year ;No dyspnea. No nausea/vomiting ;NO urinary symptoms ;Meds reviewed 01/21/25 Overall doing well. Seen by ;c/o Edema; No dyspnea 05/20/25 Overall doing well. REcently had accidental fall. c/o Left foot pain. Able to bear weight PFSH Medical History Obesity Hypertension 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, controlled Diabetes mellitus Family History Father Hx of diabetes mellitus Leukemia Brother Hx of diabetes mellitus Brother Hx of diabetes mellitus Social History Household Members: Spouse Housing: House Are you a primary medication care manager to a significant other at home: No Do you presently have visiting nurse or other home services: Yes Alcohol intake: never Patient Tobacco Use Status: Former Tobacco user Tobacco use type: Cigarette e-Cigarette/Vaping Use: Never Used Second Hand Smoke Exposure: No service: No Current occupational status: retired Cognitive needs: No Hearing needs: No Vision needs: Yes (glasses ) Physical Exam Vital Signs: Last Vital Signs BP 130/70 05/20/25 09:17 BMI result Body Mass Index 28.9 Const General: comfortable Nutritional Appearance: well nourished Orientation/consciousness: patient oriented x3 HEENT Head: No normal to inspection Mouth: moist mucous membranes Neck Neck: Yes supple and Yes no JVD Resp Auscultation: clear to auscultation bilaterally and no rales Cardio Jugular venous distension: no JVD Palpation: no palpable S3 and no palpable S4 Heart sounds: no rubs GI Palpation (GI): Soft to palpation and nontender Percussion: No Fluid wave present General: Yes no CVA tenderness Back/Spine/Pelvis Back: no CVA tenderness Skin General skin exam: no rashes or lesions noted Neuro General: patient oriented x3 Extrem General: No clubbing Right upper extremity: edema (1+) Results Reviewed Nephrology Results: Hgb, (14.0-18.0) 9.3 g/dl L 05/14/25 WBC, (4.8-10.8) 7.7 X10*3/uL 05/14/25 Plt Count, (160-400) 170 X10*3/uL 05/14/25 Sodium, (135-145) 144 mmol/L 05/14/25 Potassium, (3.3-5.1) 4.9 mmol/L 05/14/25 Chloride, (96-108) 115 mmol/L H 05/14/25 Carbon Dioxide, (22-29) 22 mmol/L 05/14/25 BUN, (9-16) 67 mg/dL H 05/14/25 Creatinine, (0.5-1.4) 1.98 mg/dL H 05/14/25 Calcium, (8.4-10.2) 9.1 mg/dL 05/14/25 PTH Intact, (8.7-77.1) 146.8 pg/mL H 10/22/24 Urine Protein, (Neg-Trace) 100 (2+) mg/dL H 10/22/24 Urine Creatinine 62.08 mg/dL 10/22/24 Assessment & Plan Assessment & Plan (1) Anemia of chronic disease: Code(s): D63.8 - Anemia in other chronic diseases classified elsewhere Category: Medical (2) CKD (chronic kidney disease) stage 3, GFR 30-59 ml/min: Code(s): N18.30 - Chronic kidney disease, stage 3 unspecified Category: Medical Plan CKD 3 B in a sitting of DM And HTN Renal function is stable. Creatinine is 1.9 and was around 2.3 in Continue to avoid nephrotoxins including NSAIDS Increase PO fluid intake Maintain BP 130/80 Optimize blood sugar control -Goal A1C < 7% h/o Anemia with MCGP Follow up Hem/onc Follow up with No indication for EPOGEN at this time Mild edema Aysmptomatic Is it due to Actos Encouraged to stay on low salt diet and keep legs elevated whenever possible. Orders: Orders Basic Metabolic Panel 4 Months D63.8 - Anemia in other chronic diseases classified elsewhere, I10 - Essential (primary) hypertension, N18.30 - Chronic kidney disease, stage 3 unspecified Complete Blood Count no Diff 4 Months D63.8 - Anemia in other chronic diseases classified elsewhere, I10 - Essential (primary) hypertension, N18.30 - Chronic kidney disease, stage 3 unspecified Coding Level of Care Code Est Pt Level 4 (35711) Diagnoses Anemia of chronic disease D63.8 CKD (chronic kidney disease) stage 3, GFR 30-59 ml/min N18.30
[2025-05-20 09:07] VITALS: BP 156/60; BMI 28.9
[2025-05-20 09:17] VITALS: BP 130/70
== END 2025-05-20 09:25 | disposition home or self-care (01) ==
LOC: HO.HKAS 09:05
PROVIDERS: PCP Internal Medicine; Visit Provider Internal Medicine Hypertension Specialist
DX: N18.30 Chronic kidney disease, stage 3 unspecified (principal); D63.8 Anemia in other chronic diseases classified elsewhere
CPT/HCPCS: 99214

== ENCOUNTER → 2025-05-20 09:04 | Outpatient (BNVA) | payer MEDICARE, SELFPAY | PROVIDERS: PCP Internal Medicine; Visit Provider Internal Medicine Hypertension Specialist | DX: I12.9 Hypertensive chronic kidney disease with stage 1 through stage 4 chronic kidney disease, or unspecified chronic kidney disease (principal); N18.30 Chronic kidney disease, stage 3 unspecified; E11.22 Type 2 diabetes mellitus with diabetic chronic kidney disease; D63.1 Anemia in chronic kidney disease; R60.9 Edema, unspecified; Z87.891 Personal history of nicotine dependence | CPT/HCPCS: 99212 ==

== ENCOUNTER 2025-06-07 22:13 | Emergency (ER) | payer MEDICARE, SELFPAY ==
--- NOTE | ~2025-06-07 | CT_ITS ---
CLINICAL HISTORY: 3 days difficulty finding words - images with motion, repeated images. CT head without contrast Comparison: None Findings: No evidence of acute territorial infarct. There is patchy low density in the periventricular and subcortical white matter. Diffuse volume loss is noted. No hydrocephalus. No hemorrhage, mass effect, mass lesion or midline shift. 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 No abnormal extra-axial fluid. No calvarial fracture. Paranasal sinuses and mastoid air cells are clear. Impression: No acute intracranial process. Moderately severe chronic changes as detailed. This document has been electronically signed by: Ba Hoover MD on 06/08/2025 04:42:49
[2025-06-07 22:38] VITALS: BP 172/80; BP 188/73; PULSE 78; PULSE 87; RESP 20; TEMP 36.9; O2SAT 94; O2SAT 99; BMI 27.4
--- OUTSIDE RECORDS SUMMARY | 2025-06-07 23:23 | XMS_ITS | Clinical Summary ---
Author Organization 175 [facility] Address [address] [place] [address] Phone Care Team Providers Care Vp Packaging Name Role Phone Andre Forman MD Primary Care Provider [phone] Allergies Active Allergy Reactions Criticality Noted Date Comments Naproxen 09/24/2023 Medications aspirin 81 mg EC tablet Take 1 Tablet by mouth daily. Active cholecalciferol (VITAMIN D-3) 25 mcg (1,000 unit) capsule Take 1 Capsule by mouth daily. Active ONETOUCH ULTRASOFT LANCETS [facility] Check blood sugar twice a day. 02/04/2024 Active multivitamin with minerals tablet Take 1 Tablet by mouth daily. Active ferrous sulfate 325 mg (65 mg elemental iron) tablet TAKE 1 TABLET BY MOUTH EVERY DAY 90 tablet 1 12/15/2024 Active OneTouch Ultra Test test strip CHECK BLOOD SUGAR ONCE A DAY 100 strip 5 03/10/2025 Active glipiZIDE (GLUCOTROL) 5 mg tablet TAKE 1 TABLET BY MOUTH TWICE A DAY BEFORE MEALS 180 tablet 1 03/10/2025 Active simvastatin (ZOCOR) 40 mg tablet TAKE 1 TABLET BY MOUTH EVERYDAY AT BEDTIME 90 tablet 1 03/12/2025 Active pioglitazone (ACTOS) 15 mg tablet TAKE 1 TABLET (15 MG TOTAL) BY MOUTH ONE TIME EACH DAY. 90 tablet 1 04/10/2025 Active metoprolol succinate (TOPROL-XL) 50 mg 24 hr tablet TAKE 1 TABLET BY MOUTH EVERY DAY DO NOT CRUSH OR CHEW 90 tablet 1 05/06/2025 Active Active Problems Problem Noted Date Diagnosed Date Nonallopathic lesion of sacral region 09/06/2015 Sprain of sacroiliac ligament 09/06/2015 Encounters Date Type Department Care Team Description 04/06/2025 8:45 AM EDT Office Visit Internal Medicine - [place] [address] [facility] [address] [place] [address] Andre Forman MD Primary hypertension (Primary Dx); Stage 3 chronic kidney disease, unspecified whether stage 3a or 3b CKD ([facility] V24, [facility] V28); Hypercholesterolemia; Diabetes mellitus type 1.5, managed as type 2 ([facility] V24, [facility] V28) from Last 3 Months Immunizations Immunization Administration Dates Next Due Moderna SARS-CoV-2 COVID-19, mRNA, LNP-S, preservative free 06/10/2021 Medical History Medical History Date Comments MGUS (monoclonal gammopathy of unknown significance) DX:MGUS (monoclonal gammopat hy of unknown significance) Anemia DX:Anemia CKD (chronic kidney disease) DX: CKD (chronic kidney disease) Diabetes mellitus type 2, co ntrolled, with complications ([facility] V24, [facility] V28) DX:Diabetes mellitus type 2, controlled, with complications ([facility]) Hyperlipidemia DX:Hyperlipidemi a Social History Tobacco [...] Description 06/22/2025 8:30 AM EST Office Visit [facility] Hematology Oncology [address] [place] [phone] Marsha Davidson PA [address] [place] [address] 10/07/2025 8:15 AM EDT Office Visit Internal Medicine - [place] 175 [facility] [address] [place] [phone] Andre Forman MD 175 [facility] [address] [place] [address] Health Maintenance Due Date Last Done Comments [...] Procedure Name Priority Date/Time Associated Diagnosis Comments EXTERNAL CLINICAL LAB 05/14/2025 BASIC METABOLIC PANEL Routine 12/18/2024 10:00 AM EDT Macrocytic anemia 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) Stage 3b chronic kidney disease ([facility]/HCC V24, CMS/HCC V28) HEMOGLOBIN A1C Routine 10/15/2024 [...] Recently Relevant to Health Maintenance Results * External clinical lab (05/14/2025) Provider [facility] LAB BLOOD ORDERABLES Fin al Result * (ABNORMAL) Basic metabolic panel (12/18/2024 10:00 AM EDT) Sodium 145 133 - 145 mmol/L LAB CHEMISTRY METHOD 12/18/2024 4:57 PM [facility] Potassium 4.3 3.5 - 5.5 mmol/L LAB CHEMISTRY METHOD 12/18/2024 4:57 PM [facility] Chloride 116(H) 96 - 110 mmol/L LAB CHEMISTRY METHOD 12/18/2024 4:57 PM [facility] CO2 24 21 - 32 mmol/L LAB CHEMISTRY METHOD 12/18/2024 4:57 PM [facility] Anion Gap 5 3 - 11 LAB CHEMISTRY METHOD 12/18/2024 4:57 PM [facility] Glucose 182(H) 70 - 100 mg/dL LAB CHEMISTRY METHOD 12/18/2024 4:57 PM [facility] BUN 70(H) 5 - 25 mg/dL LAB CHEMISTRY METHOD 12/18/2024 4:57 PM [facility] Creatinine 1.98(H) 0.70 - 1.30 mg/dL LAB CHEMISTRY METHOD 12/18/2024 4:57 PM [facility] eGFR 32(L) >=60 mL/min/1. 73m2 LAB CHEMISTRY METHOD 12/18/2024 4:57 PM [facility] Comment:Calculation based on the Chronic Kidney Disease Epidemiology Collaboration (CKD-EPI) equation refit without adjustment for race. BUN/Creatinine Ratio 35.4 LAB CHEMISTRY METHOD 12/18/2024 4:57 PM [facility] Calcium 8.9 8.5 - 10.5 mg/dL LAB CHEMISTRY METHOD 12/18/2024 4:57 PM [facility] Blood Venous blood specimen / Unknown Venipuncture / Unknown 12/18/2024 10:00 AM EDT 12/18/2024 12:34 PM EDT us Marsha CISSE LAB BLOOD ORDERABLES Final Re sult [facility] [address] [place] [address], [place] [phone] * Lipid panel with reflex to direct LDL (10/15/2024 8:43 AM EDT) Cholesterol 176 0 - 200 mg/dL LAB CHEMISTRY METHOD 10/15/2024 10:48 AM EDT [facility] Triglycerides 130 0 - 150 mg/dL LAB CHEMISTRY METHOD 10/15/2024 10:48 AM EDT [facility] HDL 63 >=40 mg/dL LAB CHEMISTRY METHOD 10/15/2024 10:48 AM EDT [facility] LDL Calculated 87 0 - 100 mg/dL LAB CHEMISTRY METHOD 10/15/2024 10:48 AM EDT [facility] VLDL Cholesterol Shola 26 mg/dL LAB CHEMISTRY METHOD 10/15/2024 10:48 AM EDT [facility] Non HDL Chol. (LDL+VLDL) 113 <145 mg/dL LAB CHEMISTRY METHOD 10/15/2024 10:48 AM EDT [facility] Chol/HDL Ratio 2.8 0.0 - 4.4 LAB CHEMISTRY METHOD 10/15/2024 10:48 AM EDT [facility] Blood Venous blood specimen / Unknown Venipuncture / Unknown 10/15/2024 8:43 AM EDT 10/15/2024 8:43 AM EDT us Andre Forman MD LAB BLOOD ORDERABLES Final Resul t Performing Organization Address [facility]/ZIP Co de Phone Number [facility] [address] [place] [address], [place] [phone] * (ABNORMAL) Hemoglobin A1c (10/15/2024 8:43 AM EDT) Hemoglobin A1C 6.5(H) <6.5 % LAB CHEMISTRY METHOD 10/15/2024 11:23 AM EDT [facility] Mean Bld Glu Estim. 140 mg/dL LAB CHEMISTRY METHOD 10/15/2024 11:23 AM EDT [facility] Blood Venous blood specimen / Unknown Venipuncture / Unknown 10/15/2024 8:43 AM EDT 10/15/2024 8:43 AM EDT us Andre Froman MD LAB BLOOD ORDERABLES Final Resul t [facility] [address] [place] [address], [place] [phone] * External Diabetic Retina Eye Exam Report (08/08/2024) Anatomical Region Laterality Modality Ultrasound us Provider [facility] IMG US PROCEDURES Final Result from Last 3 Months or Most Recently Relevant to Health Maintenance Insurance [employer] - [place] MEDICARE ADVANTAGE Care Teams Vp Packaging Relationship Specialty Start Date End Date Andre Forman MD [address] [address] PCP - General 10/10/23
--- OUTSIDE RECORDS SUMMARY | 2025-06-07 23:23 | XMS_ITS | Clinical Summary ---
Author Organization [facility] Address [address] [place] [address] Phone Care Team Providers Care Strap Sewer Name Role Phone Pee Escobedo MD Primary Care Provider [phone] Allergies Active Allergy Reactions Criticality Noted Date [...] patient's age to complete this topic [place] [address] [address] [place] [address] Care Teams Strap Sewer Relationship Specialty Start Date End Date Pee Escobedo MD [address] [place] [address] PCP - General Internal Medicine 08/25/20
--- OUTSIDE RECORDS SUMMARY | 2025-06-07 23:23 | XMS_ITS | Clinical Summary ---
Author Organization [facility] Prior to 11/08/24 Address [address] [place] [address] Care Team Providers Care Residential Child Care Counselor Name Role Phone Andre Forman MD Primary [...] age to complete this topic Care Teams Residential Child Care Counselor Relationship Specialty Start Date End Date Andre Forman MD PCP - General Internal Medicine 10/10/23
[2025-06-07 23:28] LABS: Hematocrit 25.8 % (42.0-52.0); Hemoglobin 8.3 g/dl (14.0-18.0); Imm Gran Abs Auto 0.02 X10*3/uL (0.00-0.03); Imm Gran Pct Auto 0.3 % (0.0-0.4); Lymphocytes Absolute Auto 4.1 X10*3/uL (1.2-4.9); Mean Corpuscular HGB Conc 32.2 g/dl (31.0-36.0); Mean Corpuscular Hemoglobin 32.9 pg (27.0-33.0); Mean Corpuscular Volume 102.4 fL (80.0-98.0); NRBC Abs Auto 0.000 X10*3/uL (0.0-0.012); NRBC Pct Auto 0.0 /100WBC (0.0-0.2); Platelet Count 154 X10*3/uL (160-400); Red Blood Count 2.52 X10*6/uL (4.60-5.80); SCAN SMEAR FLAG 1; White Blood Count 6.6 X10*3/uL (4.8-10.8)
[2025-06-07 23:29] LABS: MANUAL DIFF FLAG NO
[2025-06-07 23:43] LABS: Alanine Aminotransferase 21 U/L (0-40); Albumin Level 3.9 g/dL (3.5-5.0); Alkaline Phosphatase 99 U/L (39-117); Anion Gap 13 (12-20); Aspartate Amino Transferase 26 U/L (5-37); Blood Urea Nitrogen 75 mg/dL (9-16); Calcium 8.9 mg/dL (8.4-10.2); Carbon Dioxide 18 mmol/L (22-29); Chloride 118 mmol/L (96-108); Creatinine Clr Calc Pharmacy 25.9; Estimated Glomerular Filt Rate 31; Potassium 4.3 mmol/L (3.3-5.1); Sodium 145 mmol/L (135-145); Total Protein 6.9 g/dL (6.5-8.0)
[2025-06-08 00:08] LABS: Appearance Urine Clear; Glucose Urine UA Negative (Negative); PH 5.5 (5.0-9.0); Specific Gravity - Urine 1.015 (1.005-1.025); UMIC TRIGGER UACC YES
--- NOTE | 2025-06-08 01:59 | ED_ITS ---
HPI - Altered Mental Status General Chief Complaint: Altered Mental Status Stated Complaint: hx dementia worsen over last 2-3 days increasedAMS Time Seen by Provider: 06/07/25 23:16 Source: patient and EMS Mode of arrival: EMS Limitations: no limitations History of Present Illness ED Provider: Dr. Silke Teran HPI narrative: Patient comes to the emergency room via ambulance from home. According to EMS, the patient called EMS because the patient's seems to be a bit more confused than usual. The patient's reported that he has seems to be having trouble finding the right words. EMS reports that the patient was something conversation with them, seems to be more dementia than actually difficulty finding words. Patient was talking about getting robbed. Here in the emergency room, patient's seems to have trouble finishing his sentences with the cataract words. Patient's seems to trouble finding words and then uses substitution words Related Data Home Medications ?Medication ?Instructions ?Recorded ?Confirmed aspirin 81 mg tablet,delayed 81 mg PO DAILY 08/05/20 1 07/21/24 release (Adult Low Dose Aspirin) cholecalciferol (vitamin D3) 25 25 mcg PO DAILY 05/20/25 mcg (1,000 unit) capsule [id number] 300 mcg-K 60 1 tab PO DAILY 08/05/20 05/20/25 mcg-lycop 600 mcg-lutein 300 mcg tablet (Centrum Silver Ultra Men's) Previous Rx's ?Medication ?Instructions ?Recorded lancets 33 gauge (OneTouch [facility] ##100 10/11/21 Lancets) metoprolol succinate 50 mg 50 mg PO DAILY #90 tabs tablet,extended release 24 hr simvastatin 40 mg tablet 40 mg PO DAILY #90 tabs 01/10 08/03 pioglitazone 15 mg tablet (Actos) 15 mg PO DAILY #90 t abs 08/12/23 blood sugar diagnostic (Oneuch #100 strips 09/03/23 Verio test strips) glipizide 5 mg tablet 5 mg PO BID #180 tabs ferrous sulfate 325 mg (65 mg 325 mg PO DAILY #90 tabs 10/29/23 iron) tablet Allergies Allergy/AdvReac Type Severity Reaction Status Date / Time naproxen (NAPROXEN) AdvReac Mild HALLUCINATI Verified 06/07/25 22:44 ONS Review of Systems 2 Review of Systems: Patient has a complaint Patient states that he is here because ?they may stop his paperwork Yes [facility] Past Medical History Medical History Obesity Hypertension 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, controlled Diabetes mellitus Family History Family History Father Hx of diabetes mellitus Leukemia Brother Hx of diabetes mellitus Brother Hx of diabetes mellitus Social History Social History Household Members: Spouse Housing: House Are you a primary client care coordinator to a significant other at home: No Do you presently have visiting nurse or other home services: Yes Alcohol intake: never Patient Tobacco Use Status: Former Tobacco user Tobacco use type: Cigarette Smoked in Last 30 Days: No e-Cigarette/Vaping Use: Never Used Second Hand Smoke Exposure: No Use of substances other than those prescribed or required for medical reasons: No Advance Directives: No Advance Directives Information Provided: No service: No Current occupational status: retired Cognitive needs: No Hearing needs: No Vision needs: Yes (glasses ) Physical Exam ED Exam Exam: Appearance: Alert. Patient arrives as name, states that he is in ?some kind of hospital , to answer the date, patient looked at his band wrist and said it says here. In May 2025 . However, patient states that today is his birthday (which it is not, it will be in 4 days from today) Eyes: Pupils equal, round and reactive to light. ENT: Pharynx normal. Neck: Normal inspection. Neck supple. No lymph nodes noted. No crepitus CVS: Normal heart rate and rhythm. Pulses normal. Normal S1 and S2 Respiratory: No respiratory distress. Breath sounds normal. No Wheezing. No rales Abdomen: Soft and nontender. No rigidity. No distention. Skin: Skin warm and dry. Normal skin color. Normal skin turgor. Extremities: No lower extremity edema. No Lacerations. No Rash Neuro: Moving all extremities. No slurred speech. CN 2 through 12 grossly intact. Patient has a bit of difficulty following commands Psych: calm, cooperative, normal affect Vital Signs: Vital Signs - 24 hr 06/07/25 22:38 06/08/25 04:00 Temperature 98.4 F 98.4 F Pulse Rate 87 84 Respiratory Rate 20 16 Blood Pressure 188/73 H 166/63 H Pulse Oximetry 94 97 Oxygen Delivery Method Room Air Room Air BMI result Body Mass Index 27.4 Course Course Course Narrative: According to the patient's , the patient does have history of dementia. However, since that over the last 2-3 days, his symptoms had gradually been getting a bit worse She told paramedics that she feels comfortable taking her has been back home if the workup is reasonably at baseline All of patient's labs and imaging pending Medical Decision Making Medical Decision Making MDM Narrative: My interpretation of labs: Patient's hematology shows the patient is anemic which is chronic for the patient, hemoglobin 8.3. Has been decreasing since the last 2 years. MCV is 102.4, likely the patient isn't eating well. Alcohol abuse is not suspected. Patient's creatinine shows a slightly elevated creatinine, which is at patient's baseline. Urinalysis negative for UTI Head CT does not show any acute abnormality Patient's change in behavior likely secondary to worsening dementia versus sundowning, less likely to be CVA/TIA Differential Diagnosis Differential Diagnoses: The differential diagnosis associated with the presentation includes (Dementia, UTI) Admission/Observation Consideration of admission/observation: Escalation of care including admission/observation considered (Given patient's age and symptoms, observation was considered) Lab Data [facility] Lab Attestation statement: I reviewed the patient's lab results. 06/07/25 23:24 06/07/25 23:24 Labs: Lab Results 06/07/25 06/07/25 Range/Units 23:24 23:59 WBC 6.6 (4.8-10.8) X10*3/uL RBC 2.52 L (4.60-5.80) X10*6/uL Hgb 8.3 L (14.0-18.0) g/dl Hct 25.8 L (42.0-52.0) % MCV 102.4 H (80.0-98.0) fL MCH 32.9 (27.0-33.0) pg MCHC 32.2 (31.0-36.0) g/dl RDW 14.4 (11.0-16.0) % Plt Count 154 L (160-400) X10*3/uL MPV 9.8 (9.4-12.4) fL Immature Gran % (Auto) 0.3 (0.0-0.4) % Neut % (Auto) 25.1 L (45-73) % Lymph % (Auto) 62.6 H (20-40) % [place] % (Auto) 9.3 (2-11) % Eos % (Auto) 2.4 (0-4) % Baso % (Auto) 0.3 (0-2) % Lymph # (Auto) 4.1 (1.2-4.9) X10*3/uL [place] # (Auto) 0.6 (0.1-1.2) X10*3/uL Eos # (Auto) 0.2 (0.0-0.4) X10*3/uL Baso # (Auto) 0.0 (0.0-0.2) X10*3/uL Abs Immat Gran (auto) 0.02 (0.00-0.03) X10*3/uL Absolute Neuts (auto) 1.7 L (2.0-8.3) x10*3/uL Absolute Nucleated RBC 0.000 (0.0-0.012) X10*3/uL Nucleated RBC % (auto) 0.0 (0.0-0.2) /100WBC Sodium 145 (135-145) mmol/L Potassium 4.3 (3.3-5.1) mmol/L Chloride 118 H (96-108) mmol/L Carbon Dioxide 18 L (22-29) mmol/L Anion Gap 13 (12-20) BUN 75 H (9-16) mg/dL Creatinine 2.04 H (0.5-1.4) mg/dL Estim Creat Clear Calc 25.9 Estimated GFR 31 Random Glucose 107 (60-115) mg/dL Calcium 8.9 (8.4-10.2) mg/dL Total Bilirubin 0.3 (0.0-1.0) mg/dL Direct Bilirubin 0.1 (0.0-0.5) mg/dL AST 26 (5-37) U/L ALT 21 (0-40) U/L Alkaline Phosphatase 99 (39-117) U/L Total Protein 6.9 (6.5-8.0) g/dL Albumin 3.9 (3.5-5.0) g/dL Urine Color Yellow Urine Appearance Clear Urine pH 5.5 (5.0-9.0) Ur Specific [place] 1.015 (1.005-1.025) Urine Protein 100 (2+) H (Neg-Trace) mg/dL Urine Glucose (UA) Negative (Negative) mg/dL Urine Ketones Negative (Negative) mg/dL Urine Blood Trace H (Negative) Urine Nitrite Negative (Negative) Ur Leukocyte Esterase Negative (Negative) Urine RBC 0-2 (0-2) /HPF Urine WBC 0-5 (0-5) /HPF Ur Squamous Epith Cells 0-2 (0-2) /HPF Urine Bacteria None Seen (None Seen) Hyaline Casts 0-2 (0-2) /LPF Independent Interpretation I performed an independent interpretation of an: CT Scan Radiology Impression Discussion of test interpretation with radiology: I have reviewed the radiologist's reading. Radiologist Impression: No evidence of acute territorial infarct. There is patchy low density in the periventricular and subcortical white matter. Diffuse volume loss is noted. No hydrocephalus. No hemorrhage, mass effect, mass lesion or midline shift. 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 No abnormal extra-axial fluid. No calvarial fracture. Paranasal sinuses and mastoid air cells are clear. Impression: No acute intracranial process. Moderately severe chronic changes as detailed. Critical Care Time Critical Care Time Critical Care Time: Yes Total Critical Care Time: 35 Attestation: I have personally provided critical care time. Time includes review of lab data, radiology results, discussion with consultants, and monitoring for potential decompensation. Intervention performed as documented. Discharge Plan Discharge Clinical Impression: Dementia Patient Disposition: Home, Self-Care Instructions: Dementia (ED) Additional Instructions: Please follow-up with your primary care physician tomorrow. If you have any worsening or new symptoms, please return to the emergency room or call 911 Prescriptions: No Action (DME) lancets [OneTouch [employer] Lancets] 33 gauge misc See Rx Instructions .ROUTE .COMPLEX Qty: 100 3RF Dose Instruction: TEST ONCE DAILY Rx Instructions: TEST ONCE DAILY metoprolol succinate 50 mg tablet extended release 24 hr 50 mg PO DAILY Qty: 90 7RF simvastatin 40 mg tablet 40 mg PO DAILY Qty: 90 7RF pioglitazone [Actos] 15 mg tablet 15 mg PO DAILY Qty: 90 8RF (DME) OneTouch Verio test strips Strip See Rx Instructions .ROUTE .COMPLEX Qty: 100 3RF Dose Instruction: TEST ONCE DAILY Rx Instructions: TEST ONCE DAILY glipizide 5 mg tablet 5 mg PO BID Qty: 180 4RF ferrous sulfate 325 mg (65 mg iron) tablet 325 mg PO DAILY Qty: 90 3RF aspirin [Adult Low Dose Aspirin] 81 mg tablet,delayed release (DR/EC) 81 mg PO DAILY Centrum Silver Ultra Men's 300-600-300 mcg tablet 1 tab PO DAILY cholecalciferol (vitamin D3) 25 mcg (1,000 unit) capsule 25 mcg PO DAILY Print Language: Nepali
[2025-06-08 04:00] VITALS: BP 166/63; PULSE 84; RESP 16; TEMP 36.9; O2SAT 97
[2025-06-08 06:29] VITALS: BP 166/63; PULSE 84; RESP 16; TEMP 36.9; O2SAT 97
== END 2025-06-08 06:30 | disposition home or self-care (01) ==
PROVIDERS: Emergency Provider Emergency Medicine; PCP Internal Medicine
DX: F03.90 Unspecified dementia, unspecified severity, without behavioral disturbance, psychotic disturbance, mood disturbance, and anxiety (principal); I10 Essential (primary) hypertension; D64.9 Anemia, unspecified; E11.9 Type 2 diabetes mellitus without complications; Z79.899 Other long term (current) drug therapy
CPT/HCPCS: 36415; 70450; 80048; 80076; 81001; 85025; 99284

== ENCOUNTER → 2025-06-08 02:04 | Outpatient (BNV) | payer MEDICARE, SELFPAY | PROVIDERS: Emergency Provider Emergency Medicine; PCP Internal Medicine; Visit Provider Radiology Vascular & Interventional Radiology | DX: R41.82 Altered mental status, unspecified (principal) | CPT/HCPCS: 70450 ==